=== PATIENT | female | born 1925 | race Caucasian/White ===

== ENCOUNTER 2016-09-15 08:09 | Outpatient (CLI) | payer MEDICARE, OTHER ==
[~2016-09-15] VITALS: Ht 154.9 cm; Wt 54.5 kg
--- NOTE | ~2016-09-15 | HEMODYNAMI ---
PATIENT:DRE MYLES MEDICAL RECORD: [id number] : [birth year] LOCATION:[facility] [address] [id number] ADMISSION DATE: 09/15/16 Generatedon:09/16/20169:07 Patient name: DRE MYLES Patient #: [id number] SSN: D OB: 1925 Date of study: 09/16/2016 Page: Of Hemodynamic Procedure Report Patient Data Patient Demographics Procedure consent was obtained First Name: DRE Gender: Female Last Name: SHAR : 1925 Patient #: [id number] Age: 89 year(s) Race: Unknown Additional ID: [id number] Contact details Address: [facility] [employer] State: [place] City: [facility] Zip code: [address] Past Medical History Allergies: No known allergies Admission Admission Data Admission Date: 09/15/2016 Admission Time: 8:09 Admit Source: Other Room #: D.2125 Lab Results Lab Result Date: 09/15/2016 Lab Result Time: 9:10 Biochemistry Name Units Result Min Max BUN mg/dl 16 --(---*)-- 7 18 Creatinine mg/dl 0.8 --(-*--)-- 0.6 1.3 CBC Name Units Result Min Max Hematocrit % 34.1 *-(----)-- 42 54 Hemoglobin g/dl 10.8 *-(----)-- 13.5 17.5 Procedure Procedure Types Cath Procedure PCI Procedure Coronary Stent Initial SVG-BMS/JOSE Initial Miscellaneous Procedures Moderate Sedation up to 15 minutes Procedure Description Procedure Date Procedure Date: 09/16/2016 Procedure Start Time: 8:45 Procedure End Time: 8:56 Procedure Staff Name Function Frantz Arce MD Performing Physician Dorothy Samainego RT Scrub Luis Reyna RN Nurse Ralf Sheldon RT Monitor Neetu Lopez RT Monitor Procedure Data Cath Procedure Entry Location Entry Primary Successful Side Size Upsize Upsize Entry Closure Succes sful Closure Location (Fr) 1 (Fr) 2 (Fr) Remarks Device Remarks Femoral Left 6 Fr Vascade artery Short Closure System Estimated blood loss: 10 ml Procedure Complications No complications Procedure Medications Medication Administration Route Dosage Oxygen NC 2 l/min Lidocaine 2% added to field 20 Heparin Flush Bag added to field 2 bags (1000units/500ml NS) 0.9% NaCl I.V. 100 ml/hr Versed I.V. 1 mg Fentanyl I.V. 50 mcg Heparin Bolus I.V. 4000 units Fentanyl I.V. 25 mcg Versed I.V. 0.5 mg Hemodynamics Rest HGB: 10.8 (g/dl) Heart Rate: 24 (bpm) Snapshots Pre Cath Intra NCS Post Cath Vital Signs Time Heart Resp SPO2 NIBP (mmHg) Rhythm Pain Sedation Rate (ipm) (%) Status Level (bpm) 7:54:30 96 15 96 176/92(136) NSR 0 (11) 10(A) , No pain 7:58:48 83 15 100 176/96(123) NSR 0 (11) 10(A) , No pain 8:03:10 80 16 100 177/87(119) NSR 0 (11) 10(A) , No pain 8:07:36 78 14 100 161/73(111) NSR 0 (11) 10(A) , No pain 8:11:59 79 15 99 160/68(112) NSR 0 (11) 10(A) , No pain 8:16:19 75 15 100 154/59(86) NSR 0 (11) 10(A) , No pain 8:20:39 69 14 100 146/64(118) NSR 0 (11) 10(A) , No pain 8:24:55 65 14 100 150/67(113) NSR 0 (11) 10(A) , No pain 8:29:13 68 13 100 152/63(110) NSR 0 (11) 10(A) , No pain 8:33:31 64 15 100 151/65(119) NSR 0 (11) 10(A) , No pain 8:37:49 61 15 100 149/66(109) NSR 0 (11) 10(A) , No pain 8:42:09 62 16 100 141/57(106) NSR 0 (11) 9(A) , No pain 8:46:25 60 15 100 145/60(113) NSR 0 (11) 9(A) , No pain 8:50:45 64 16 100 133/52(93) NSR 0 (11) 10(A) , No pain 8:55:45 62 14 100 Measuring NSR 0 (11) 10(A) , No pain 8:56:03 66 23 100 135/54(102) NSR 0 (11) 10(A) , No pain Medications Time Medication Route Dose Verified Delivered Reason Notes Effectiveness by by 7:56:26 Oxygen NC 2 Frantz Buffie used for l/min Claude Reyna RN procedure 7:56:32 Lidocaine 2% added 20ml Frantz Frantz for local to vial Claude Arce MD anesthetic field 7:56:39 Heparin Flush added 2 Frantz Frantz used for Bag to bags Claude Arce MD procedure (1000units/500ml field NS) 8:32:38 0.9% NaCl I.V. 100 Frantzdolores Keyie Per physician ml/hr Claude Reyna RN 8:40:30 Versed I.V. 1 mg Frantz Smith for sedation Claude Reyna RN 8:40:35 Fentanyl I.V. 50 Frantz Buffie for sedation mcg Claude Reyna RN 8:40:54 Fentanyl I.V. 25 Frantz Smith for sedation mcg Claude Reyna RN 8:44:04 Versed I.V. 0.5 Frantz Smith for sedation mg Claude Reyna RN 8:44:31 Heparin Bolus I.V. 4000 Frantz Smith for verifie d units Claude Reyna RN anticoagulation with dr arce Procedure Log Time Note 7:25:17 Informed consent obtained and on chart 7:26:24 Diagnostic Cath status Elective 7:26:26 Luis Reyna RN sent for patient. Start room use. 7:26:27 Time tracking: Regular hours 7:26:31 Plan of Care:Hemodynamics will remain stable., Cardiac rhythm will remain stable., Comfort level will be maintained., Respiratory function will remain adequate., Patient/ family verbilizes understanding of procedure., Procedure tolerated without complication., Recovers from procedure without complications.. 7:44:21 ACC Patient presents with Unstable Angina CCS Anginal Class 3--Marked limitation of physical activity, angina occurs with ordinary activity.. 7:44:23 ACCPatient has been prescribed/administered the following anti-anginal medication within the last 2 weeks: Beta Samir 7:46:53 Patient received from PCU to CCL 2 Alert and oriented. Tansferred to table in Supine position. 7:46:54 Warm blankets applied, and bi hugger turned on for patient comfort. 7:46:55 Correct patient and procedure confirmed by team. 7:46:55 ECG and BP/O2 sat monitors applied to patient. 7:52:27 Vital chart was started 7:52:34 Baseline sample Acquired. 7:52:39 Rhythm: sinus rhythm 7:52:41 Full Disclosure recording started 7:52:47 H&P Date Dictated: 09/16/2016 Within 30 days and on chart.. 7:52:49 Pre-procedure instructions explained to patient. 7:52:49 Pre-op teaching completed and patient verbalized understanding. 7:52:52 Family unavailable. 7:52:55 Patient NPO since Midnight. 7:53:00 Is the patient allergic to Iodine/contrast media? No. 7:53:02 Was the patient premedicated? No 7:53:03 Is patient on blood thinner?Yes 7:53:20 Patient diabetic? No. 7:53:24 Previous problem with sedation/anesthesia? No ? 7:53:27 Snore? No 7:53:28 Sleep apnea? No 7:53:29 Deviated septum? No 7:53:30 Opens mouth fully? Yes 7:53:30 Sticks out tongue? Yes 7:53:35 Airway obstruction? No ? 7:53:37 Dentures? No ? 7:53:41 Pre procedure: right dorsailis pedis pulse 1+ Palpable, but thready & weak; easily obliterated 7:53:44 Patient pain scale 0/10 ?. 7:53:51 IV patent on arrival in left forearm with 0.9% NaCl at [facility]. 7:53:57 Lab results completed and on chart. 7:54:10 Left groin area was prepped with chlora-prep and draped in sterile fashion 7:54:11 Alarms reviewed by R. N. 7:54:12 Sharps counted by scrub and verified by R.N. 7:55:33 Use device set Femoral PCI 7:55:35 Tegaderm 4 x 4 opened to sterile field. 7:55:36 Acist Manifold opened to sterile field. 7:55:38 Acist Syringe opened to sterile field. 7:55:38 Acist Hand Control opened to sterile field. 7:55:38 Bag Decanter opened to sterile field. 7:55:39 Medline Cath Pack opened to sterile field. 7:55:39 Terumo 6Fr Boyle Sheath opened to sterile field. 7:55:40 St Carlos A 260cm J .035 wire opened to sterile field. 7:55:40 Merit BasixCompak Inflation Kit opened to sterile field. 7:55:57 Banuelos Whisper J 300cm 0.014 guide wire opened to sterile field. 7:56:26 Oxygen 2 l/min NC was administered by Luis Reyna RN; used for procedure; 7:56:32 Lidocaine 2% 20ml vial added to field was administered by Frantz Arce MD; for local anesthetic; 7:56:39 Heparin Flush Bag (1000units/500ml NS) 2 bags added to field was administered by Frantz Arce MD; used for procedure; 7:56:50 Baseline sample Acquired. 8:32:38 0.9% NaCl 100 ml/hr I.V. was administered by Luis Reyna RN; Per physician; 8:37:11 Physician arrived 8:37:12 --------ALL STOP TIME OUT------ 8:37:13 Final Timeout: patient, procedure, and site verified with staff and physician. All members of the team are in agreement. 8:37:17 Left groin site verified by team. 8:37:24 Physical assessment completed. ASA score P 2 - A patient with mild systemic disease as per Frantz Arce MD. 8:37:29 Sedation plan: IV Moderate Sedation Versed, Fentanyl 8:38:59 Zero performed for pressure channel P1 8:40:30 Versed 1 mg I.V. was administered by Luis Reyna RN; for sedation; 8:40:35 Fentanyl 50 mcg I.V. was administered by Luis Reyna RN; for sedation; 8:40:54 Fentanyl 25 mcg I.V. was administered by Luis Reyna RN; for sedation; 8:44:04 Versed 0.5 mg I.V. was administered by Luis Reyna RN; for sedation; 8:44:31 Heparin Bolus 4000 units I.V. was administered by Luis Reyna RN; for anticoagulation; verified with dr arce 8:45:01 Procedure started. 8:45:07 Local anesthetic to left femerol artery with Lidocaine 2% by Frantz Arce MD.INITIAL ACCESS ONLY 8:45:22 A 6 Fr Short sheath was inserted into the Left Femoral artery 8:46:12 Medtronic Launcher 6Fr MB 1 guide catheter opened to sterile field. 8:46:28 6 Fr MB1 guide catheter was inserted over the wire 8:46:35 Whisp wire advanced. 8:47:28 Wire advanced across lesion. 8:50:37 Inflation Number: 1 A Medtronic Resolute 2.5 X 18 stent was prepped and advanced across the Dist RCA. The stent was deployed at 15 JANET for 0:10 (min:sec). 8:51:18 Stent catheter was removed intact over wire. 8:51:21 Wire removed. 8:51:21 Guide catheter removed. 8:53:13 Vascade 6/7 Fr Closure Device opened to sterile field. 8:53:39 Sheath removed intact; hemostasis achieved with Vascade Closure System to the Left Femoral artery. 8:53:44 Procedure ended.(Physican Out) 8:54:25 Insertion/operative site no bleeding no hematoma. 8:54:30 Post-op/insertion site Left Femoral artery dressed using a 4 x 4 and Tegaderm. 8:54:35 Post left femerol artery:stable 8:54:38 Post Procedure Pulses reassessed and unchanged 8:54:45 Post-procedure physical assessment completed. ASA score P 2 - A patient with mild systemic disease as per Frantz Arce MD. 8:54:50 Post procedure rhythm: unchanged. 8:54:53 Estimated blood loss: 10 ml 8:54:54 Post procedure instruction explained to patient.Patient verbalizes understanding. 8:54:56 Patient needs reinforcement of post procedure teaching. 8:55:08 Procedure type changed to Cath procedure, PCI procedure, Coronary Stent Initial, SVG-BMS/JOSE Initial, Miscellaneous Procedures, Moderate Sedation up to 15 minutes 8:55:09 Procedure and supply charges have been captured, reviewed, submitted and are correct. 8:55:43 Procedure Complication : No complications 8:55:47 Vital chart was stopped 8:55:56 See physician's report for complete and final results. 8:56:08 Report given to [facility]. 8:56:12 Patient transfered to [facility] with Bed. 8:56:15 Procedure ended. 8:56:15 Full Disclosure recording stopped 8:56:19 End room use (Document Last) 8:56:33 ACC-PCI Only Patient was given prescriptions, or instructed by Frantz Arce MD to start/continue the following medications upon discharge: Plavix Intervention Summary Intervention Notes Time ActionType Lesion and Equipment Action# Pressure Duration Attributes Used 8:50:37 Place stent Dist RCA Medtronic 1 15 00:10 Resolute 2.5 X 18 stent Device Usage Item Name Manufacture Quantity Catalog Hospital Part Current Minima l Lot# / Number Charge Number Stock Stock Serial# Code Tegaderm 4 1 [id number] 5 x 4 Acist Acist 1 41312 342094 523291 751479 5 Manifold Medical Systems Inc Acist Acist 1 91081 155335 532848 538294 20 Syringe Medical Systems Inc Acist Hand Acist 1 31936 021071 080655 394366 5 Control Medical Systems Inc Bag Microtek 1 2002S 305251 59053 009561 5 Klosetshop Inc. Medline Cardinal 1 [id number] 624219 68780 996752 5 Manifact Terumo 6Fr Terumo 1 [id number] 283959 442491 181399 [address] [facility] Carlos A 1 441550 936805 058764 477643 30 260cm J .035 wire Merit Merit 1 [id number] 697848 102804 608404 15 BasixCompak Medical Inflation Kit Banuelos Banuelos 1 [id number] 126818 125594 978780 5 Whisper J Vascular 300cm 0.014 guide wire Medtronic Medtronic 1 [id number] 378228 29831 210011 1 Launcher 6Fr MB 1 guide catheter Medtronic Medtronic 1 [id number] 276554 627613 5 [id number] Resolute 2.5 X 18 stent Vascade 6/7 Cardiva 1 [id number] 257971 429051 925112 5 Fr Closure Medical, Device Inc. Signature Audit [place] Stage Time Signature Unsigned Intra-Procedure 09/16/2016 Neetu Lopez 9:07:12 AM RT(R) Signatures Monitor : Ralf Sheldon RT Signature : Date : Time : Monitor : Neetu Lopez Signature : RT Date : Time : [place] [place] [address] [place] [address]
--- NOTE | ~2016-09-15 | HEMODYNAMI ---
PATIENT:DRE MYLES MEDICAL RECORD: [id number] : [birth year] LOCATION:[facility] ADMISSION DATE: 09/15/16 Generatedon:09/15/201611:02 Patient name: DRE MYLES Patient #: [id number] SSN: D OB: 1925 Date of study: 09/15/2016 Page: Of Hemodynamic Procedure Report Patient Data Patient Demographics Procedure consent was obtained First Name: DRE Gender: Female Last Name: SHAR : 1925 Patient #: [id number] Age: 89 year(s) Race: Unknown Additional ID: [id number] Contact details Address: [address] [place] [address] DRIVE State: [place] City: [facility] [place] Zip code: [address] Past Medical History Allergies: No known allergies Admission Admission Data Admission Date: 09/15/2016 Admission Time: 8:09 Admit Source: Other Lab Results Lab Result Date: 09/15/2016 Lab Result Time: 9:10 Biochemistry Name Units Result Min Max BUN mg/dl 16 --(---*)-- 7 18 Creatinine mg/dl 0.8 --(-*--)-- 0.6 1.3 CBC Name Units Result Min Max Hematocrit % 34.1 *-(----)-- 42 54 Hemoglobin g/dl 10.8 *-(----)-- 13.5 17.5 Procedure Procedure Types Cath Procedure Diagnostic Procedure C [facility] w/Coronaries PCI Procedure Coronary Stent Initial Miscellaneous Procedures Moderate Sedation up to 45 minutes Procedure Description Procedure Date Procedure Date: 09/15/2016 Procedure Start Time: 10:25 Procedure End Time: 11:01 Procedure Staff Name Function Frantz Arce MD Performing Physician Jt Knox RT Scrub Rachael Hunter RN Nurse Niki Easton RT Monitor Procedure Data Cath Procedure Fluoroscopy Diagnostic fluoroscopy Total fluoroscopy Time: time: 11.1 min 11.1 min Diagnostic fluoroscopy Total fluoroscopy dose: 730 dose: 730 mGy mGy Contrast Material Contrast Material Type Amount (ml) Isovue 300 164 Entry Location Entry Primary Successful Side Size Upsize Upsize Entry Closure Succes sful Closure Location (Fr) 1 (Fr) 2 (Fr) Remarks Device Remarks Femoral Right 5 Fr 6 Fr Exoseal artery Short Estimated blood loss: 10 ml Diagnostic catheters Device Type Used For End Catheter Placement Cordis 5Fr Pigtail LV Angiography Catheter (MP) Cordis 5Fr JL 4.0 Left Coronary Catheter (MP) Angiography Cordis 5Fr 3DRC Catheter Internal mammary (MP) arteriography Cordis 5Fr 3DRC Catheter Right Coronary (MP) Angiography Diagnostic Infinity 5Fr SVG Angiography AR 2 MOD catheter Diagnostic Infinity 5Fr SVG Angiography AR 2 MOD catheter Procedure Complications No complications Procedure Medications Medication Administration Route Dosage Oxygen NC 2 l/min Heparin Flush Bag added to field 2 bags (1000units/500ml NS) Lidocaine 2% added to field 20 Versed I.V. 0.5 mg Fentanyl I.V. 25 mcg Fentanyl I.V. 25 mcg Versed I.V. 0.5 mg Heparin Bolus I.V. 4000 units Integrilin (Bolus I.V. 5 ml 2mg/ml) Plavix P.O. 600 mg Hemodynamics Rest HGB: 10.8 (g/dl) Heart Rate: 78 (bpm) Snapshots Pre Cath Intra NCS Post Cath Vital Signs Time Heart Resp SPO2 etCO2 TU2sduh NIBP (mmHg) Rhythm Pain Sedation Rate (ipm) (%) (mmHg) (mmHg) Status Level (bpm) 10:13:06 83 15 98 0 0 163/76(121) NSR 0 (11) 10(A) , No pain 10:17:28 79 15 100 0 0 158/79(121) NSR 0 (11) 10(A) , No pain 10:21:50 72 15 100 0 0 152/69(111) NSR 0 (11) 10(A) , No pain 10:26:08 72 16 98 0 0 151/72(116) NSR 0 (11) 9(A) , No pain 10:30:28 74 16 96 0 0 135/69(113) NSR 0 (11) 9(A) , No pain 10:34:44 78 15 95 0 0 136/63(104) NSR 0 (11) 9(A) , No pain 10:39:02 73 15 97 0 0 132/54(94) NSR 0 (11) 9(A) , No pain 10:43:21 77 14 97 0 0 122/55(98) NSR 0 (11) 9(A) , No pain 10:47:30 75 14 97 0 0 139/66(103) NSR 0 (11) 9(A) , No pain 10:51:46 76 14 96 0 0 140/63(99) NSR 0 (11) 9(A) , No pain 10:56:02 74 16 97 0 0 144/68(119) NSR 0 (11) 9(A) , No pain 11:00:16 85 16 95 0 0 166/83(124) NSR 0 (11) 10(A) , No pain Medications Time Medication Route Dose Verified Delivered Reason Notes Effectiveness by by 10:13:47 Oxygen NC 2 Frantz Rachael Per physician l/min Claude Hunter RN 10:13:55 Heparin Flush added 2 Farntz Frantz used for Bag to bags Claude Arce MD procedure (1000units/500ml field NS) 10:14:02 Lidocaine 2% added 20ml Frantz Frantz used for to vial Claude rAce MD procedure field 10:21:42 Versed I.V. 0.5 Frantz Rachael for sedation mg Claude Hunter RN 10:21:49 Fentanyl I.V. 25 Frantz Rachael for sedation mcg Claude Hunter RN 10:23:45 Fentanyl I.V. 25 Frantz Rachael for sedation mcg Claude Hunter RN 10:25:05 Versed I.V. 0.5 Frantz Rachael for sedation mg Claude Hunter RN 10:35:43 Heparin Bolus I.V. 4000 Frantz Rachael for units Claude Hunter RN anticoagulation 10:39:36 Integrilin I.V. 5 ml Frantz Rachael for 5ml (Bolus 2mg/ml) Claude Hunter RN antiplatelet wasted therapy 11:00:51 Plavix P.O. 600 Frantz Rachael for mg Claude Hunter RN antiplatelet therapy Procedure Log Time Note 9:48:17 Informed consent obtained and on chart 9:48:59 Diagnostic Cath Status : Elective 9:49:03 Admit Source: Other 9:49:06 Rachael Hunter RN sent for patient. Start room use. 9:49:08 Time tracking: Regular hours 9:49:12 Plan of Care:Hemodynamics will remain stable., Cardiac rhythm will remain stable., Comfort level will be maintained., Respiratory function will remain adequate., Patient/ family verbilizes understanding of procedure., Procedure tolerated without complication., Recovers from procedure without complications.. 9::36 Lab Result : BUN 16 mg/dl :36 Lab Result : Creatinine 0.8 mg/dl :36 Lab Result : Hematocrit 34.1 % ::36 Lab Result : Hemoglobin 10.8 g/dl 10:06:41 Patient received from Pre/Post Procedure Room to CCL 1 Alert and oriented. Tansferred to table in Supine position. 10:06:42 Warm blankets applied, and bi hugger turned on for patient comfort. 10:06:43 Correct patient and procedure confirmed by team. 10:06:43 ECG and BP/O2 sat monitors applied to patient. 10:07:56 Full Disclosure recording started 10:11:51 Vital chart was started 10:13:47 Oxygen 2 l/min NC was administered by Rachael Hunter RN; Per physician; 10:13:50 H&P Date Dictated: 09/03/2016 Within 30 days and on chart., H&P Addendum completed by physician on day of procedure. (MUST COMPLETE FOR ALL OUTPATIENTS). 10:13:52 Pre-procedure instructions explained to patient. 10:13:53 Pre-op teaching completed and patient verbalized understanding. 10:13:54 Family in waiting room. 10:13:55 Heparin Flush Bag (1000units/500ml NS) 2 bags added to field was administered by Frantz Arce MD; used for procedure; 10:13:58 Baseline sample Acquired. 10:14:02 Lidocaine 2% 20ml vial added to field was administered by Frantz Arce MD; used for procedure; 10:14:02 Rhythm: sinus rhythm 10:14:08 Patient NPO since Midnight. 10:14:13 Patient allergic to No known allergies 10:14:15 Is the patient allergic to Iodine/contrast media? No. 10:14:17 Is patient on blood thinner?No 10:14:20 Patient diabetic? No. 10:14:24 Previous problem with sedation/anesthesia? No ? 10:14:26 Snore? No 10:14:27 Sleep apnea? No 10:14:28 Deviated septum? No 10:14:29 Opens mouth fully? Yes 10:14:30 Sticks out tongue? Yes 10:14:31 Airway obstruction? No ? 10:14:33 Dentures? No ? 10:14:37 Pre procedure: right dorsailis pedis pulse 2+ Normal; easily identifiable; not easily obliterated 10:14:39 Patient pain scale 0/10 ?. 10:14:47 IV patent on arrival in left hand with 0.9% NaCl at [facility]. 10:14:56 Lab results completed and on chart. 10:15:00 Right groin area was prepped with chlora-prep and draped in sterile fashion 10:15:01 Alarms reviewed by R. N. 10:15:01 Sharps counted by scrub and verified by R.N. 10:15:07 Use device set Femoral Dx 10:15:08 Acist Syringe opened to sterile field. 10:15:08 Bag Decanter opened to sterile field. 10:15:09 Medline Cath Pack opened to sterile field. 10:15:09 Terumo 5Fr Alva Sheath opened to sterile field. 10:15:10 St Carlos A 260cm J .035 wire opened to sterile field. 10:15:11 Acist Hand Control opened to sterile field. 10:15:12 Acist Manifold opened to sterile field. 10:15:12 Diagnostic Infinity 5Fr Multipack catheter opened to sterile field. 10:15:13 Tegaderm 4 x 4 opened to sterile field. 10:20:28 Final Timeout: patient, procedure, and site verified with staff and physician. All members of the team are in agreement. 10:20:31 Right groin site verified by team. 10:20:33 Physical assessment completed. ASA score P 2 - A patient with mild systemic disease as per Frantz Arce MD. 10:20:36 Sedation plan: IV Moderate Sedation Versed, Fentanyl 10:21:42 Versed 0.5 mg I.V. was administered by Rachael Hunter RN; for sedation; 10:21:49 Fentanyl 25 mcg I.V. was administered by Rachael Hunter RN; for sedation; 10:23:45 Fentanyl 25 mcg I.V. was administered by Rachael Hunter RN; for sedation; 10:25:05 Versed 0.5 mg I.V. was administered by Rachael Hunter RN; for sedation; 10::27 Procedure started. 10:25:30 Local anesthetic to right femoral artery with Lidocaine 2% by Frantz Arce MD.INITIAL ACCESS ONLY 10:25:54 A 5 Fr sheath was inserted into the Right Femoral artery 10::01 A Cordis 5Fr Pigtail Catheter (MP) was advanced over the wire and used for LV Angiography. 10:26:42 LV gram done using BARCENAS 10::59 Injector settings: Ml/sec: 10, Volume: 20, 10:27:06 Catheter removed. 10:27:13 A Cordis 5Fr JL 4.0 Catheter (MP) was advanced over the wire and used for Left Coronary Angiography. 10:29:08 Catheter removed. 10:29:59 Terumo 6Fr Alva Sheath opened to sterile field. 10:30:00 Met[employer] J 300cm 0.014 guide wire opened to sterile field. 10:30:01 LegCyte BasixCompak Inflation Kit opened to sterile field. 10:30:22 A Cordis 5Fr 3DRC Catheter (MP) was advanced over the wire and used for Internal mammary arteriography.to LAD 10:30:58 A Cordis 5Fr 3DRC Catheter (MP) was advanced over the wire and used for Right Coronary Angiography. 10:31:06 Catheter removed. 10:32:54 A Diagnostic Infinity 5Fr AR 2 MOD catheter was advanced over the wire and used for SVG Angiography.to RCA 10:35:13 A Diagnostic Infinity 5Fr AR 2 MOD catheter was advanced over the wire and used for SVG Angiography.to CIRC unable to find. No competitive flow in duck[place]. 10:35:16 Catheter removed. 10:35:43 Heparin Bolus 4000 units I.V. was administered by Rachael Hunter RN; for anticoagulation; 10:35:43 Cordis 6FR XBLAD 3.5 guide catheter opened to sterile field. 10:35:56 Sheath upsized to a 6 Fr Short. 10:36:05 6 Fr XBLAD 3.5 guide catheter was inserted over the wire 10:37:27 [employer] Holdingsisper wire advanced. 10:39:36 Integrilin (Bolus 2mg/ml) 5 ml I.V. was administered by Rachael Hunter RN; for antiplatelet therapy; 5ml wasted 10:39:43 Inflation number: 1 A Euphora 2.0 x 12 Balloon was prepped and advanced across the 1st Diag, then inflated to 17 JANET for 0:11 (min:sec). 10:40:03 Inflation number: 2 The Euphora 2.0 x 12 Balloon was reinflated across the 1st Diag, to 17 JANET for 0:08 (min:sec). 10:40:20 Inflation number: 3 The Euphora 2.0 x 12 Balloon was reinflated across the 1st Diag, to 17 JANET for 0:09 (min:sec). 10:40:38 Balloon removed over the wire. 10:44:20 Inflation Number: 4 A Medtronic Resolute 2.25 X 18 Stent was prepped and advanced across the 1st Diag. The stent was deployed at 13 JANET for 0:04 (min:sec). 10:44:30 Stent catheter was removed intact over wire. 10:46:46 The Medtronic Resolute 2.25 X 12 stent was advanced then removed because of failure to cross lesion 10:47:34 Banuelos Whisper J 300cm 0.014 guide wire opened to sterile field. 10:49:26 New Whisper to Circ wire advanced. 10:51:25 The Medtronic Resolute 2.5 X 8 stent was advanced then removed because of failure to cross lesion 10:53:14 Inflation Number: 5 A Medtronic Resolute 2.25 X 12 stent was prepped and advanced across the 1st Diag. The stent was deployed at 13 JANET for 0:07 (min:sec). 10:53:28 Stent catheter was removed intact over wire. 10:53:29 Wire removed. 10:53:29 Guide catheter removed. 10:54:41 Sheath removed intact; hemostasis achieved with Exoseal to the Right Femoral artery. 10:54:43 Procedure ended.(Physican Out) 10:55:06 Fluoroscopy time 11.10 minutes. 10:55:13 Flurop Dose total: 730 10:55:13 Fluoroscopy dose: 730 mGy 10:55:18 Contrast amount:Isovue 300 164ml. 10:55:20 Sharps counted by scrub and verified by R.N. 10:55:23 Insertion/operative site no bleeding no hematoma. 10:55:27 Post-op/insertion site Right Femoral artery dressed using a 4 x 4 and Tegaderm. 10:55:31 Post right femoral artery:stable, clean and dry 10:55:33 Post Procedure Pulses reassessed and unchanged 10:55:36 Post-procedure physical assessment completed. ASA score P 2 - A patient with mild systemic disease as per Frantz Arce MD. 10:55:38 Post procedure rhythm: unchanged. 10:55:41 Estimated blood loss: 10 ml 10:55:43 Post procedure instruction explained to patient.Patient verbalizes understanding. 10:55:45 Patient needs reinforcement of post procedure teaching. 10:56:06 Procedure type changed to Cath procedure, Diagnostic procedure, LHC, LHC w/Coronaries, PCI procedure, Coronary Stent Initial, Miscellaneous Procedures, Moderate Sedation up to 45 minutes 10:56:25 Procedure Complication : No complications 10:56:28 See physician's report for complete and final results. 10:56:59 Cordis 6Fr Exoseal opened to sterile field. 10:59:13 Procedure and supply charges have been captured, reviewed, submitted and are correct. 11:00:51 Plavix 600 mg P.O. was administered by Rachael Hunter RN; for antiplatelet therapy; 11:01:35 Vital chart was stopped 11:01:38 Report given to Pre/Post Procedure Room. 11:01:40 Patient transfered to Pre/Post Procedure Room with Stretcher. 11:01:42 Procedure ended. 11:01:42 Full Disclosure recording stopped 11:01:49 End room use (Document Last) Intervention Summary Intervention Notes Time ActionType Lesion and Equipment Action# Pressure Duration Attributes Used 10:39:43 Inflate 1st Diag Euphora 1 17 00:11 balloon 2.0 x 12 Balloon 10:40:03 Reinflate 1st Diag Euphora 2 17 00:08 balloon 2.0 x 12 Balloon 10:40:20 Reinflate 1st Diag Euphora 3 17 00:09 balloon 2.0 x 12 Balloon 10:44:20 Place stent 1st Diag Medtronic 4 13 00:04 Resolute 2.25 X 18 Stent 10:46:46 Discard Medtronic Stent Resolute 2.25 X 12 stent 10:51:25 Discard Medtronic Stent Resolute 2.5 X 8 stent 10:53:14 Place stent 1st Diag Medtronic 5 13 00:07 Resolute 2.25 X 12 stent Device Usage Item Name Manufacture Quantity Catalog Hospital Part Current Minimal Lot# / Number Charge Number Stock Stock Serial# Code Acist Acist 1 [id number] 204413 901258 345611 20 Syringe Medical Systems Inc Bag Microtek 1 2002S 862163 56443 040096 5 Ecofoot Inc. Medline Cardinal 1 [id number] 729403 52208 931347 5 Cath Pack Health Terumo 5Fr Terumo 1 [id number] 291181 708900 772945 [address] [facility] A [facility] Carlos A 1 504202 229068 077600 949353 30 260cm J .035 wire Acist Hand Acist 1 28646 124090 314216 306598 5 Control Medical Systems Inc Acist Acist 1 80793 807992 151104 316397 5 Enpocket Medical Systems Inc Diagnostic Cardinal 1 [id number] 193446 59612 414938 30 Infinity Health 5Fr Multipack catheter Tegaderm 4 3M 1 1626W 608785 187738 103263 5 x 4 Cordis 5Fr Cardinal 1 995637 5 Pigtail Health Catheter (MP) Cordis 5Fr Cardinal 1 420550 5 JL 4.0 Health Catheter (MP) Terumo 6Fr Terumo 1 HQU401 935486 704923 352991 40 Alva Sheath Banuelos Banuelos 2 [id number] 329399 466116 632403 5 Whisper J Vascular 300cm 0.014 guide wire Merit Merit 1 MU7865 561618 421255 298983 15 Dailybreak MediaOgden Regional Medical CenterBrain Tunnelgenix Technologies Medical Inflation Kit Cordis 5Fr Cardinal 1 993428 5 3DRC Health Catheter (MP) Diagnostic Cardinal 1 [id number] 302555 827003 367142 20 Infinity Health 5Fr AR 2 MOD catheter Cordis 6FR Cardinal 1 [id number] 013271 943045 168446 10 XBLAD 3.5 Health guide catheter Euphora 2.0 Medtronic 1 [id number] 344468 726111 833762 5 [id number] x 12 Balloon Medtronic Medtronic 1 [id number] 508571 685618 6 [id number] Resolute 2.25 X 18 Stent Medtronic Medtronic 1 [id number] 344390 748847 6 [id number] Resolute 2.25 X 12 stent Medtronic Medtronic 1 [id number] 427646 909492 6 [id number] Resolute 2.5 X 8 stent Cordis 6Fr Cardinal 1 EX600 615769 215908 913351 10 [facility] Health Signature Audit [place] Stage Time Signature Unsigned Intra-Procedure 09/15/2016 Niki 11:02:02 AM Counts RT(R) Signatures Monitor : Niki Signature : Counts RT Date : Time : [address] [address]
[~2016-09-15 08:09] MED LIST: BAYER CHEWABLE81 MG PO; BYSTOLIC5 MG PO; LASIX20 MG PO; MULTIPLE VITAMI1 TA1 PO; NORCO 10/325 TA1 TA1 PO; NORVASC5 MG PO; OYSCO 500+D TAB1 TAB PO; PAIN MED; VITAMIN B-121000 MCG PO
[2016-09-15] MEDS ORDERED: ICAPS AREDS1 TAB.SA PO (09:15)
[2016-09-15] MEDS ORDERED: BAYER CHEWABLE81 MG PO (09:15)
[2016-09-15] MEDS ORDERED: FUROSEMIDE20 MG PO (09:16)
[2016-09-15] MEDS ORDERED: TYLENOL W/CODEI1 TAB PO (09:16)
[2016-09-15 09:17] LABS: BASOPHILS 0.7 % (0.0-2.0); EOSINOPHILS 3.7 % (0-7); HEMATOCRIT 34.1 % (36.0-48.0); HEMOGLOBIN 10.8 g/dL (12-16); IMMATURE GRANULOCYTES 0.1 % (0-5); LYMPHOCYTES 29.3 % (15-50); MCH 30.1 pg (26.0-34.0); MCHC 31.7 g/dL (31.0-37.0); MONOCYTES 8.3 % (2-11); NEUTROPHILS 57.9 % (40-80); PLATELET COUNT 220 10x3/uL (130-400); RBC 3.59 10x6/uL (4.00-5.40); RDW 13.5 % (11.5-14.5); WBC 7.1 10x3/uL (4.8-10.8)
[2016-09-15] MEDS ORDERED: ESTAZOLAM2 MG PO (09:17)
[2016-09-15] MEDS ORDERED: BYSTOLIC5 MG PO (09:18)
[2016-09-15] MEDS ORDERED: CALCIUM 600+D T1 TA1 PO (09:18)
[2016-09-15 09:21] VITALS: BP 167/68; BMI 22.3
[2016-09-15 09:27] LABS: ANION GAP 11.8 mmol/L (8-16); CALCIUM 8.8 mg/dL (8.5-10.1); CARBON DIOXIDE 27.3 mmol/L (21.0-32.0); CREATININE - SERUM 0.8 mg/dL (0.6-1.3); POTASSIUM - SERUM 4.1 mmol/L (3.5-5.1)
--- NOTE | 2016-09-15 11:44 | NUR ---
1130-ON BEDPAN-VOID SMALL AMOUNT- RIGHT GROIN -NO CHANGES, SOFT TO TOUCH
--- NOTE | 2016-09-15 12:39 | NUR ---
1200-RIGHT GROIN CDI- NO HEMATOMA OR BLEEDING NOTED, SOFT TO TOUCH, DENIES NEEDS
--- NOTE | 2016-09-15 15:10 | NUR ---
1510-REPORT CALLED TO [facility]. TRANSPORT VIA WC, VSS, IV TO LEFT HAND PATENT AND CDI, RIGHT GROIN -CDI, NO HEMATOMA OR BLEEDING NOTED.
--- NOTE | 2016-09-15 15:40 | NUR ---
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 RIGHT GROIN SOFT WITH DRSG DRY AND INTACT PPP. IV TO LEFT FORE AM. DENIES ANY NEED. WILL MONITOR
[2016-09-15 16:10] VITALS: BP 164/83; Ht 154.9 cm; Wt 54.5 kg
--- NOTE | 2016-09-15 16:21 | NUR ---
ASSESSMENT COMPLETE AT THIS TIME NAD NOTED
--- NOTE | 2016-09-15 18:37 | NUR ---
RESTING QUIETLY. RIGHT GROIN SOFT WITH NO BLEEDING. UP FOR DIET.
[2016-09-15 20:00] VITALS: BP 136/57
[2016-09-16] VITALS (8 sets, daily range): BP systolic 139–169; BP diastolic 65–81
--- NOTE | 2016-09-16 07:40 | NUR ---
INTRODUCED MYSELF TO PT PRIMARY RN FOR TODAYS SHIFT. SHIFT ASSESSMENT COMPLETED. PTS LJOSE URIOSTEGUI DRSG SOILED WITH BLOOD, IV STILL PATENT, CLEANSED SITE AND APPLIED NEW CLEAN TEGADERM. CATH CALLED TO PRE-OP PT. PRE-OP COMPLETED AND PT READY TO GO FOR PROCEDURE. MAYCOL DRSG CDI FROM YESTERDAYS CATH NO S/S OF BLEEDING NOTED OR HEMATOMA. PT REC'D MORNING MEDICATONS WITH SIP OF WATER. WILL CPOC.
--- NOTE | 2016-09-16 09:37 | NUR ---
PT BACK FROM [facility]. VSS AND BEING RECORDED Q15MIN POLICY. INITIATED PTS IV NS @100ML/HR VIA L.FA PIV WITH DRSG CDI AND SWAB CAPS IN USE. PT IS TO LAY FLAT FOR [address] F[address] STOP IN PL[address] TO L.GROIN SITE CLEAN AND DRY NO S/S OF BLEEDING OR HEMATOMA NOTED. PT AWARE TO CALL FOR ANY ASSISTNACE AND REMAIN FLAT. CL IN REACH, TELEMETRY BACK IN PLACE. PERIPHERAL PULSES INTACT. WILL CPOC.
--- NOTE | 2016-09-16 11:00 | NUR ---
REMOVED AIR FROM FEM STOP TO L.GROIN. NO BLEEDING NOTED WILL CTM SITE. PERIPHERAL PULSES INTACT. VSS. PT LYING FLAT RESTING QUIETLY DENIES ANY FURTHER NEEDS AT THIS TIME. CL IN REACH, BED IN LOWEST, SIDE RAILS X2. WILL CPOC.
--- NOTE | 2016-09-16 12:21 | NUR ---
PT RESTING QUIETLY IN BED. C/O BEING THIRSTY. EXPLAINED SHE MUST LAY FLAT BUT I WILL ASSIST HER WITH WATER TO DRINK. PT VOICED THANKS. PERIPHERAL PULSES INTACT. FRANCISCO NOW HAS DRSG CDI, FEM STOP OFF AND NO S/S OF BLEEDING NOTED. VSS. PT CAN SIT UP AT 1300 AND D/C AND IS AWARE.
--- NOTE | 2016-09-16 13:00 | NUR ---
4 HOUR LAY COMPLETE. L.GROIN DRSG STILL CDI. NO S/S OF HEMATOMA OR BLEEDING NOTED. PT UP WITH ASSIST TO URINATE. VSS. PERIPHERAL PULSES INTACT. NO FURTHER NEEDS AT THIS TIME. WILL CPOC.
[2016-09-16] MEDS ORDERED: PLAVIX75 MG PO (13:19)
--- NOTE | 2016-09-16 14:27 | NUR ---
D/C PTS L.FA PIV WITH CATHETER TIP FULLY INTACT. PT READY TO LEAVE WITH DAUGHTER. DISCHARGE INSTRUCTIONS COMPLETED. PAPERS SIGNED.
--- NOTE | 2016-09-22 14:38 | DS ---
PATIENT:DRE MYLES :[birth year] MEDICAL RECORD: [id number] DISCHARGE SUMMARY ADMISSION DATE: 09/15/16 DISCHARGE DATE: 09/16/16 DATE OF DISCHARGE: 09/16/2016 DIAGNOSES: 1. Angina. 2. Coronary artery disease. 3. Percutaneous transluminal coronary angioplasty stent, LAD diagonal venetie, as well as RCA venetie through the patent vein graft. 4. Hypertension. 5. Hyperlipidemia. HOSPITAL COURSE: Mrs. Myles presents with anginal symptomatology, found to have 3-vessel coronary artery disease, underwent successful PTCA stent of the LAD diagonal and venetie RCA. She was discharged home with the addition of aspirin and Plavix to her medical regimen. She will follow up in 1 week for PTCA stent of the LAD through the SHELLEY graft. TRANSINT:[id number] Voice Confirmation ID: [id number] DOCUMENT ID: [id number] RUBEN RYDER MD at 1438 CC: [id number] DICTATION DATE: 09/16/16 0854 SAS CLINICAL PROGRAMMER: 09/17/16 0151 DEP CLI 09/16/16 [id number] [place] [address]
--- NOTE | 2016-09-22 14:38 | OP ---
PATIENT NAME: DRE MYLES MEDICAL RECORD: [id number] :[birth year] LOCATION:D.CAT ADMISSION DATE: SURGEON: RUBEN RYDER MD DATE OF OPERATION: 09/16/2016 PROCEDURES: 1. PTCA stent, RCA through patent vein graft. 2. Selective coronary and vein graft angiography. INDICATIONS: Angina and coronary artery disease. PROCEDURE IN DETAIL: After informed consent was obtained and after a detailed explanation of risks, benefits as well as alternative therapies, the patient elected to proceed with angiogram and angioplasty. The left femoral area was prepped and draped in normal sterile fashion. Left femoral artery was cannulated via modified Seldinger technique with placement of 6-Upper Sorbian sheath. All catheters exchanged through this sheath. FINDINGS: The right coronary has 75% stenosis after the patent vein graft. This was addressed with a 2.5 x 18 mm Resolute stent. Result was 0% residual stenosis. OVERALL IMPRESSION: Successful percutaneous transluminal coronary angioplasty stent of the right coronary artery through the patent vein graft going from 75% initial stenosis to 0% residual. TRANSINT:[id number] Voice Confirmation ID: [id number] DOCUMENT ID: [id number] RUBEN RYDER MD at 1438 CC: [id number] DICTATION DATE: 09/16/16 0855 SFDC DEVELOPER: 09/16/16 0905 DEP CLI 09/16/[address] [address]
--- NOTE | 2016-09-22 14:38 | OP ---
PATIENT NAME: DRE MYLES MEDICAL RECORD: [id number] :[birth year] LOCATION:D.CAT ADMISSION DATE: SURGEON: RUBEN RYDER MD DATE OF OPERATION: 09/15/2016 PROCEDURES: 1. PTCA stent LAD diagonal. 2. Left heart catheterization. 3. Selective coronary angiography. 4. Left ventriculogram. 5. Vein graft angiography. 6. SHELLEY angiography. INDICATION: Angina and coronary artery disease. PROCEDURE IN DETAIL: After informed consent was obtained and after a detailed explanation of the risks, benefits as well as alternative therapies, the patient elected to proceed with angiogram and angioplasty. The right femoral area was prepped and draped in normal sterile fashion. The right femoral artery was cannulated via modified Seldinger technique with placement of 6-Korean sheath. All catheters exchanged through this sheath. FINDINGS: The left ventriculogram was performed in standard 30-degree BARCENAS view, reveals basal hypokinesis. Overall ejection fraction 40%. SELECTIVE CORONARY ANGIOGRAPHY: 1. Left main is with no significant angiographic disease. 2. LAD is totally occluded in the proximal vessel. However, there is a very large diagonal system comes off prior to this. There is 90% stenosis times 2. 3. The left circumflex is not grafted, has moderate irregularities, but no flow-limiting stenosis. 4. The right coronary is totally occluded. 5. The vein graft to the right coronary is patent, but the distal right coronary has 80% stenosis after the vein graft. 6. SHELLEY to the LAD is patent; however, the LAD has a 90% stenosis after the SHELLEY. PTCA STENT OF THE LAD DIAGONAL: The stent used was a 2.5 x 12 and 2.5 x 18 both Resolute stents. Result was 0% residual stenosis. OVERALL IMPRESSION: Successful percutaneous transluminal coronary angioplasty stent of the LAD diagonal going from 90% initial stenosis times 2. PLAN: PTCA stent of the RCA through the vein graft and LAD through the SHELLEY graft in the future. TRANSINT:[id number] Voice Confirmation ID: [id number] DOCUMENT ID: [id number] OPERATIVE REPORT [id number] ANNETTE MYLESEEN RUBEN RYDER MD at 1438 CC: [id number] DICTATION DATE: 09/15/16 1059 BLOOD BANK LABORATORY PROFESSIONAL: 09/15/16 1122 DEP CLI 03/22/17 [facility] [address] [place] [address]
== END 2016-09-16 14:55 | disposition home or self-care (01) ==
LOC: D.CATH 08:09 → D.M2 08:09 → D.CATH 10:00 → D.M2 15:13 → D.CATH 09-16 14:55
PROVIDERS: Internal Medicine Interventional Cardiology
DX: I25.119 Atherosclerotic heart disease of native coronary artery with unspecified angina pectoris (principal); Z95.1 Presence of aortocoronary bypass graft; I10 Essential (primary) hypertension; E78.5 Hyperlipidemia, unspecified
CPT/HCPCS: 93459; C9600; C9604

== ENCOUNTER 2016-09-21 12:18 | Inpatient (IN) | payer MEDICARE, OTHER ==
[~2016-09-21] VITALS: Ht 154.9 cm; Wt 52.2 kg
--- NOTE | ~2016-09-21 | HEMODYNAMI ---
PATIENT:DRE MYLES MEDICAL RECORD: [id number] : [birth year] LOCATION:[facility] D.2128 ADMISSION DATE: 09/21/16 Generatedon:09/25/201610:38 Patient name: DRE MYLES Patient #: [id number] SSN: [id number] : 1925 Date of study: 09/25/2016 Page: Of Hemodynamic Procedure Report Patient Data Patient Demographics Procedure consent was obtained First Name: DRE Gender: Female Last Name: SHAR : 1925 Patient #: [id number] Age: 89 year(s) Race: Unknown SSN: [id number] Additional ID: [id number] Contact details Address: [facility] [address] State: [place] City: [facility] [place], [place] Zip code: [address] Past Medical History Allergies: No known allergies Admission Admission Data Admission Date: 09/21/2016 Admission Time: 17:59 Arrival Date: 09/25/2016 Arrival Time: 0:00 Admit Source: Other Room #: D.2128 Height (in.): 62 BSA: 1.54 (m2) Height (cm.): 157.48 BMI: 21.95 (kg/m2) Weight (lbs.): 120 Weight (kg.): 54.43 Lab Results Lab Result Date: 09/22/2016 Lab Result Time: 0:00 Biochemistry Name Units Result Min Max BUN mg/dl 18 --(---*)-- 7 18 Creatinine mg/dl 0.9 --(-*--)-- 0.6 1.3 CBC Name Units Result Min Max Hemoglobin g/dl 10 *-(----)-- 13.5 17.5 Procedure Procedure Types Cath Procedure Diagnostic Procedure Cardioversion Procedure Description Procedure Date Procedure Date: 09/25/2016 Procedure Start Time: 10:27 Procedure End Time: 10:36 Procedure Staff Name Function Frantz Arce MD Performing Physician Jarrett Cross RT eRnetta Reyna RN Nurse Neetu Lopez RT Monitor David Harrell MD Additional personnel Procedure Data Procedure Complications No complications Procedure Medications Medication Administration Route Dosage Oxygen NC 2 l/min Refer to Anesthesia Notes for Sedation Medications Hemodynamics Rest BSA: 1.54 (m2) HGB: 10 (g/dl) O2 Consumption: Estimated: 146.72 (ml/min) O2 Consumption indexed: Estimated:95.27 (ml/min/m) Heart Rate: 89 (bpm) Snapshots Pre Cath Intra NCS Post Cath Vital Signs Time Heart Resp SPO2 NIBP Rhythm Pain Sedation Rate (ipm) (%) (mmHg) Status Level (bpm) 10:25:53 74 24 95 92/51(74) A-Fib 0 (11) 10(A) , No pain 10:30:49 68 21 100 94/54(79) NSR 0 (11) 8(A) , No pain 10:33:25 64 23 100 108/43(86) NSR 0 (11) 9(A) , No pain 10:35:30 69 23 100 107/64(80) NSR 0 (11) 10(A) , No pain Medications Time Medication Route Dose Verified Delivered Reason Notes Effectiven ess by by 10:20:26 Refer to Frantz Hernandez Anesthesia Claude Harrell MD Notes for Sedation Medications 10:25:20 Oxygen NC 2 Frantz Smith used for l/min Claude Reyna RN procedure Procedure Log Time Note 10:14:47 Jarrett Cross RT(R) sent for patient. Start room use. 10:20:26 Refer to Anesthesia Notes for Sedation Medications was administered by David Harrell MD; ; 10:23:36 Patient Height : 157.48 cm 10:23:41 Patient Weight : 54.43 kg 10:23:41 Admit Source: Other 10:23:44 Arrival Date: 09/25/2016 12:00:00 AM 10:24:11 Diagnostic Cath Status : Elective 10:24:48 Time tracking: Regular hours 10:24:53 Plan of Care:Hemodynamics will remain stable., Cardiac rhythm will remain stable., Comfort level will be maintained., Respiratory function will remain adequate., Patient/ family verbilizes understanding of procedure., Procedure tolerated without complication., Recovers from procedure without complications.. 10:25:02 Patient received from Med II to [facility] 3 Alert and oriented. Tansferred to table in Supine position. 10:25:03 Warm blankets applied, and bi hugger turned on for patient comfort. 10:25:04 Correct patient and procedure confirmed by team. 10:25:06 Signed procedure consent form obtained from patient. 10:25:07 ECG and BP/O2 sat monitors applied to patient. 10:25:07 Vital chart was started 10:25:08 Baseline sample Acquired. 10:25:20 Oxygen 2 l/min NC was administered by Luis Reyna RN; used for procedure; 10:25:47 Full Disclosure recording started 10::06 H&P Date Dictated: 09/03/2016 Within 30 days and on chart.. 10:26:07 Pre-procedure instructions explained to patient. 10:26:12 Patient NPO since Midnight. 10:26:21 Patient allergic to No known allergies 10:26:27 Is patient on blood thinner?Yes 10:26:30 ACC The patient was administered the following blood thiners within the last 24 hours: ACCPlavix 10:26:33 Patient diabetic? No. 10:26:36 Snore? No 10:26:38 Sleep apnea? No 10:26:43 Dentures? No ? 10:26:57 IV patent on arrival in left forearm with 0.9% NaCl at [facility]. 10:27:11 Lab results completed and on chart. 10:27:14 Physician paged 10:27:15 Physician arrived 10:27:15 --------ALL STOP TIME OUT------ 10:27:16 Final Timeout: patient, procedure, and site verified with staff and physician. All members of the team are in agreement. 10:27:24 Sedation plan: TIVA Propofol 10:27:37 dr HARRELL present and monitoring patient for TIVA. 10:27:44 Procedure started. 10:27:46 Quick combo pads placed on patients chest and back. 10:27:48 Defibrillator synced and charged to 200 Joules. 10:27:50 Shock delivered. 10:27:56 Patient cardioverted to sinus rhythm . 10:29:21 Procedure ended.(Physican Out) 10:30:03 Post-procedure physical assessment completed. ASA score P 2 - A patient with mild systemic disease as per Frantz Arce MD. 10:30:06 Post procedure rhythm: sinus rhythm 10:30:10 Post procedure instruction explained to patient.Patient verbalizes understanding. 10:30:34 Quick Combo opened to sterile field. 10:30:39 Procedure and supply charges have been captured, reviewed, submitted and are correct. 10:30:55 Procedure Complication : No complications 10:35:57 Vital chart was stopped 10:35:58 See physician's report for complete and final results. 10:36:00 Report given to [facility]. 10:36:04 Patient transfered to [facility] with Bed. 10:36:06 Procedure ended. 10:36:06 Full Disclosure recording stopped 10:36:11 End room use (Document Last) Device Usage Item Manufacture Quantity Catalog Hospital Part Current Minimal Lot# / Name Number Charge Number Stock Stock Grzegorz nh# Code ThermoCeramix 1 [id number] Combo Signature Audit [employer] [place] Stage Time Signature Unsigned Intra-Procedure 09/25/2016 Neetu Lopez 10:38:11 AM RT(R) Signatures Monitor : Neetu Lopez Signature : RT Date : Time : [address] [address]
[~2016-09-21 12:18] MED LIST changes: +CALCIUM 600+D T1 TA1 PO; +ESTAZOLAM2 MG PO; +FUROSEMIDE20 MG PO; +ICAPS AREDS1 TAB.SA PO; +PLAVIX75 MG PO; +TYLENOL W/CODEI1 TAB PO
[2016-09-21 12:52] LABS: BASOPHILS 0.8 % (0.0-2.0); HEMOGLOBIN 10.4 g/dL (12-16); IMMATURE GRANULOCYTES 0.4 % (0-5); LYMPHOCYTES 25.9 % (15-50); MCHC 31.5 g/dL (31.0-37.0); MCV 95.1 fL (80.0-100.0); MEAN PLATELET VOLUME 9.3 fL (7.4-10.4); MONOCYTES 10.3 % (2-11); NEUTROPHILS 60.6 % (40-80); RBC 3.47 10x6/uL (4.00-5.40); RDW 13.4 % (11.5-14.5); WBC 8.4 10x3/uL (4.8-10.8)
[2016-09-21 12:57] LABS: PLATELET COUNT 265 10x3/uL (130-400)
[2016-09-21 13:11] LABS: ANION GAP 11.6 mmol/L (8-16); BILIRUBIN - TOTAL 0.54 mg/dL (0.2-1.3); CALCIUM 8.5 mg/dL (8.5-10.1); CARBON DIOXIDE 27.7 mmol/L (21.0-32.0); CREATININE - SERUM 0.8 mg/dL (0.6-1.3); POTASSIUM - SERUM 4.3 mmol/L (3.5-5.1); PROTEIN - SERUM 6.9 g/dL (6.4-8.2)
[2016-09-21 13:41] LABS: TROPONIN-I 0.206 ng/mL (0.000-0.060)
[2016-09-21 20:00] VITALS: BP 118/63
--- NOTE | 2016-09-21 20:15 | NUR ---
RECEIVED TO ROOM 2128 ALERT AND ORIENTED X3 89 Y/O FEMALE SEEN BY DR HENRY FOR PNEUMONIA, AFIB VIA STRETCHER FROM ER. ORIENTATION TO UNIT, ROOM, BED, BR, PHONE, C/L GIVEN WITH UNDERSTANDING VERBALIZED. BOX ALARM PLACED, IS ON AND WORKING FOR SAFETY, RESP EVEN AND UNLAB WITH O2 @ 2L NC IN PLACE, USES BED ROCHA WITH ASSIST, OLINDA WELL. VOICES NO C/O PAIN AT THIS TIME. WILL PLACE TELEMETRY PER ORDERS. NPO. CONTINUE TO MONITOR.
[2016-09-21 23:40] VITALS: BP 118/63; BMI 21.7
[2016-09-22 00:11] VITALS: BP 106/64
--- NOTE | 2016-09-22 03:01 | NUR ---
EYES CLOSED, RESP UNLAB WITH NO S/S OF ACUTE DISTRESS NOTED. C/L IN REACH, CONTINUE TO MONITOR.
[2016-09-22 04:00] VITALS: BP 113/46
[2016-09-22 05:16] LABS: BASOPHILS 0.5 % (0.0-2.0); EOSINOPHILS 1.1 % (0-7); HEMATOCRIT 32.1 % (36.0-48.0); IMMATURE GRANULOCYTES 0.4 % (0-5); LYMPHOCYTES 14.2 % (15-50); MCH 29.8 pg (26.0-34.0); MCHC 31.2 g/dL (31.0-37.0); MCV 95.5 fL (80.0-100.0); MEAN PLATELET VOLUME 9.7 fL (7.4-10.4); NEUTROPHILS 75.8 % (40-80); PLATELET COUNT 314 10x3/uL (130-400); RBC 3.36 10x6/uL (4.00-5.40); RDW 13.2 % (11.5-14.5); WBC 10.2 10x3/uL (4.8-10.8)
[2016-09-22 06:07] LABS: ALBUMIN 3.1 g/dL (3.4-5.0); ANION GAP 16.2 mmol/L (8-16); BILIRUBIN - TOTAL 0.63 mg/dL (0.2-1.3); CALCIUM 8.5 mg/dL (8.5-10.1); CARBON DIOXIDE 25.7 mmol/L (21.0-32.0); CREATININE - SERUM 0.9 mg/dL (0.6-1.3); POTASSIUM - SERUM 3.9 mmol/L (3.5-5.1); PROTEIN - SERUM 6.4 g/dL (6.4-8.2)
[2016-09-22 06:13] LABS: TROPONIN-I 0.122 ng/mL (0.000-0.060)
[2016-09-22 07:56] VITALS: BP 127/54
--- NOTE | 2016-09-22 09:00 | NUR ---
RETURN TO ROOM VIA BED FROM EXECUTIVE MARKETING ASSISTANT. SEDATED. AROUSES TO STIMULI. DAUGHTER AT BEDSIDE. RT GROIN DRESSING CLEAN DRY INTACT. FREE FROM BLEEDING. NO HEMATOMA. PULSES +1 BILATERALLY. CONTROLLED AFIB 74bpm ON TELEMETRY. BP-109/49, O2-98% 2L NC, R-16. CONTINUE PLAN OF CARE. BED LOCKED AND LOW. CALL LIGHT IN REACH. TWO SIDERAILS UP. SCDs ON.
[2016-09-22 12:03] VITALS: BP 118/48
[2016-09-22 13:38] VITALS: Ht 154.9 cm; Wt 52.2 kg
[2016-09-22 15:59] VITALS: BP 113/74
[2016-09-22 22:26] VITALS: BP 134/58
[2016-09-23 01:25] VITALS: BP 119/65
[2016-09-23 05:45] VITALS: BP 108/46
[2016-09-23 08:00] VITALS: BP 118/87
[2016-09-23 12:00] VITALS: BP 97/52
--- NOTE | 2016-09-23 14:04 | NUR ---
Patient Name: DRE MYLES Admission Status: ER Accout number: [id number] Admission Date: 09-21-2016 : 1925 Admission Diagnosis: Attending: YANIRA Current LOS: 2 Anticipated DC Date: 09-24-2016 Planned Disposition: Inpatient Rehab Primary Insurance: MEDICARE A & B PLANNED EXTERNAL PROVIDER: [facility] IN[facility] Discharge Planning Comments: * Is the patient Alert and Oriented? Yes 0 * How many steps to enter\exit or inside your home? 3 OUTSIDE 0 * PCP DR. HENRY 0 * Pharmacy [facility] 0 * Preadmission Environment Home with Family 0 * ADLs Independent 0 * Equipment Shower Chair Walker 0 * Other Equipment NO MEDICAL EQUIPMENT PROVIDER PREFERENCE 0 * List name and contact numbers for known caregivers / representatives who currently or will assist patient after discharge: CHANDRAKANT MYLES, SPOUSE, VINOD MANJARREZ, SISTER, 0 * Community resources currently utilized Other 0 * Please name any agencies selected above. PRIVATE PAY SAILING MASTER, ONCE EVERY TWO WEEKS. 0 * Additional services required to return to the preadmission environment? Yes * Can the patient safely return to the preadmission environment? Yes 0 * Has this patient been hospitalized within the prior 30 days at any hospital? No 0 CM RECEIVED ORDER FOR RETIREMENT VS INPATIENT REHAB PLACEMENT. CM MET WITH PT IN ROOM TO DISCUSS DISCHARGE PLANNING AND NEEDS. PT REPORTS LIVING AT HOME INDEPENDENTLY SPOUSE AND ADULT DAUGHTER. PT HAS A WALKER AND SHOWER CHAIR WITH NO MEDICAL EQUIPMENT PROVIDER PREFERENCE. PT HAS A SAILING MASTER THAT COMES IN ONCE EVERY TWO WEEKS. PT HAS NO OUTSIDE SERVICES ASSISTING IN THE HOME. CM DISCUSSED ORDER, AVAILABILITY OF HOME HEALTH, REHAB SERVICES AND MEDICAL EQUIPMENT. PT REPORTED HER SPOUSE WENT TO [place] AND THEY DID A GOOD JOB WITH REHAB FOR HIM BUT SHE DOES NOT WANT TO CONSIDER RETIREMENT REHAB. PT WOULD CONSIDER INPATIENT REHAB AT [facility] HER CANNNOT SEE WELL AND CANNOT DRIVE BACK AND FORTH TO GET PT TO REHAB. PT MAY ALSO CONSIDER HOME HEALTH. PT REPORTS HER DAUGHTER WILL PICK HER UP FOR DISCHARGE HOME. CM EXPLAINED AND DISCUSSED AT LENGTH THAT THE DOCTOR FEELS PT WILL NEED REHAB PRIOR TO RETURNING HOME AND IF PT WOULD LIKE TO BE CONSIDERED AT [facility], BED AVAILABITY MAY BE AN ISSUE AND WE NEED TO SEND REFERRAL SINCE THE DOCTOR IS ANTICIPATING DISCHARGE TOMORROW. PT REFUSED AND REPORTS PLAN TO GO HOME AND SHE WOULD CONSIDER REHAB AT THE HOSPITAL. CM LEFT CHOICE FORMS FOR PT'S INFORMATION REGARDING AVAILABILITY OF RETIREMENT FACILITY REHAB AND HOME HEALTH SERVICES. CM LEFT PT WITH CM CONTACT INFORMATION. PT WILL NOT CONSIDER RETIREMENT REHAB; PT WANTS TO GO HOME AND WILL CONSIDER HOME HEALTH OR INPATIENT REHAB ONLY. CM TO FOLLOW AND ASSIST NEEDED. Bankruptcy Processor: Ramón Patel
--- NOTE | 2016-09-23 14:36 | NUR ---
ALERT AND ORIENTED X4. SITTING UP IN BED. FAMILY AT BEDSIDE. VOMITED LUNCH UP. COMPLAINS OF BODY WEAKNESS. UNCONTROLLED A-FIB 118bpm WITH PVCs ON TELEMETRY. DENIES SOB. ADMINISTER 2nd DOSE OF RHYTHMOL PER ORDER. CONTINUE PLAN OF CARE. BED LOCKED AND LOW. CALL LIGHT IN REACH. TWO SIDERAILS UP.
--- NOTE | 2016-09-23 16:33 | NUR ---
Rehab Prescreening Consult recieved and the chart has been reviewed. The PT notes state she is confused and lethargic during their eval. Rehab will follow her progress with them to determine if she is able to participate in the required therapy. Mahi Donaldson RN Clinical Liaison, Rehab
--- NOTE | 2016-09-23 16:41 | NUR ---
ALERT AND ORIENTED X4. RESTING IN BED. REFUSED PHYSICAL THERAPY. WHEN ASKED WHY, PATIENT REPLIES, "I DON'T KNOW. I JUST DIDN'T FEEL LIKE IT I GUESS. I JUST WANT TO GO HOME AND BE NORMAL." POOR INTAKE. ENCOURAGE DRINKING FLUIDS. DENIES SOB. COMPLAINS OF BODY ACHING WITH MOVEMENT. ENCOURAGE ALLOWING PHYSICAL THERAPY TOMORROW. CONTROLLED A-FIB WITH PVCs 93bpm ON TELEMETRY. CONTINUE PLAN OF CARE AND SAFETY PRECAUTIONS.
--- NOTE | 2016-09-23 19:00 | NUR ---
REPORT RECIEVED, INITIAL ASSESSMENT COMPLETE, PLEASE SEE FLOW SHEETS FOR DETAILS. PT INN BED RESTING. A&O X4. LUNGS CLEAR AND DIMINISHED IN LOWER LOBES BILATERALLY. AT BEDSIDE. PT DENIES PAIN/NEEDS ATT. PPP. BED LOW AND LOCKED. CALL LIGHT IN REACH. WILL CONTINUE POC.
[2016-09-23 20:24] VITALS: BP 119/61
[2016-09-24 00:14] VITALS: BP 108/54
--- NOTE | 2016-09-24 01:52 | NUR ---
PT SLEEPING, NO S&S OF ACUTE DISTRESS NOTED. BED LOW AND LOCKED, CALL LIGHT IN REACH. HR REGULAR AND CONTROLLED AFIB ON MONITOR. WILL CONTINUE TO MONITOR.
[2016-09-24 04:44] VITALS: BP 114/45
[2016-09-24 05:58] LABS: BASOPHILS 0.3 % (0.0-2.0); EOSINOPHILS 0.8 % (0-7); HEMATOCRIT 32.1 % (36.0-48.0); IMMATURE GRANULOCYTES 0.4 % (0-5); LYMPHOCYTES 13.2 % (15-50); MCH 29.8 pg (26.0-34.0); MCHC 31.2 g/dL (31.0-37.0); MCV 95.5 fL (80.0-100.0); MEAN PLATELET VOLUME 9.7 fL (7.4-10.4); MONOCYTES 11.8 % (2-11); NEUTROPHILS 73.5 % (40-80); PLATELET COUNT 342 10x3/uL (130-400); RBC 3.36 10x6/uL (4.00-5.40); RDW 13.1 % (11.5-14.5); WBC 11.1 10x3/uL (4.8-10.8)
[2016-09-24 06:21] LABS: ALBUMIN 2.9 g/dL (3.4-5.0); ANION GAP 10.1 mmol/L (8-16); BILIRUBIN - TOTAL 0.6 mg/dL (0.2-1.3); CALCIUM 8.9 mg/dL (8.5-10.1); CARBON DIOXIDE 30.2 mmol/L (21.0-32.0); CREATININE - SERUM 0.8 mg/dL (0.6-1.3); POTASSIUM - SERUM 3.3 mmol/L (3.5-5.1); PROTEIN - SERUM 7.2 g/dL (6.4-8.2)
--- NOTE | 2016-09-24 07:47 | NUR ---
UD GIVEN Y RT. OUTSIDE FOOD SERVER AT ASSISTING WITH NEEDS. CALL LIGHT IN REACH. WILL CONT. PLAN OF CARE.
--- NOTE | 2016-09-24 07:52 | NUR ---
ASSESSMENT COMPLETED. TELEMERTY SHOWS CAF . SL TO LEFT FA.BRUISING TO GROINS. DENIES ANY NEEDS. CALL LIGHT IN REACH WITH SR UP. WILL MONITOR
[2016-09-24 08:26] VITALS: BP 98/47
--- NOTE | 2016-09-24 10:57 | NUR ---
This patient meets criteria for acute inpatient rehab and will be accepted today if the physician agrees. Mahi Donaldson RN CL
--- NOTE | 2016-09-24 11:54 | NUR ---
Patient Name: DRE MYLES Encounter No: [id number] : 1925 Primary Insurance: MEDICARE A & B Anticipated DC Date: 09-24-2016 Planned Disposition: Inpatient Rehab External Planned Provider: [facility] INPATIENT REH[facility] DCP follow-up note: CM SPOKE TO [facility]PATIENT REH[facility], THEY CANB ACCEPT PT TODAY FOR REHAB IS STABLE FOR DISCHARGE FROM HOSPITAL. PT NOTIFIED, IN AGREEMENT WITH DISCHARGE TO INPATIENT REHAB. CM CALLED PT'S SPOUSE, CHANDRAKANT MYLES, , NOTIFIED OF ACCEPTANCE BY [facility] INPATIENT RE[facility], MR. MYLES IN AGREEMENT WITH DISCHARGE TODAY. CM NOTIFIED DR. HENRY VIA HIS NURSE, FELISHA, AT CLINIC PHONE. CM ADVISED PLIER WORKER NURSE OF PLANNED DISCHARGE TODAY TO INPATIENT REHAB IF OK WITH CARDIOLOGY. PT NOTIFIED. IMPORTANT MESSAGE FROM MEDICARE PROVIDED AND EXPLAINED. CM WAITING HOSPITAL DISCHARGE. [facility] INPATIENT REHAB TO CONTACT MED 2 NURSE WITH ROOM NUMBER WHEN READY TO ACCEPT PT AND NURSE REPORT. Ramón Patel, CASE MANAGEMENT
[2016-09-24 11:56] VITALS: BP 110/65
--- NOTE | 2016-09-24 12:46 | NUR ---
Nutrition follow-up: Diet: Low sodium PO intake ~25% average of meals Labs reviewed Pt a little lethargic per nursing today Wt: 114# Will continue to provide food choices and honor food preferences. RDN will order Ensure BID. Following.
[2016-09-24 15:21] VITALS: BP 110/54
--- NOTE | 2016-09-24 19:03 | NUR ---
LYING QUIETLY. STILL IN CAF. DENIES AANY NEEDS. CALL LIGHT IN REACH WITH SR UP
[2016-09-24 20:00] VITALS: BP 129/56
[2016-09-25] VITALS: BP 107/59
[2016-09-25 04:00] VITALS: BP 111/58
[2016-09-25 05:42] LABS: BASOPHILS 0.2 % (0.0-2.0); EOSINOPHILS 1.1 % (0-7); HEMOGLOBIN 9.6 g/dL (12-16); IMMATURE GRANULOCYTES 0.3 % (0-5); LYMPHOCYTES 13.5 % (15-50); MCH 29.6 pg (26.0-34.0); MCV 95.7 fL (80.0-100.0); MEAN PLATELET VOLUME 9.1 fL (7.4-10.4); MONOCYTES 8.1 % (2-11); NEUTROPHILS 76.8 % (40-80); PLATELET COUNT 351 10x3/uL (130-400); RBC 3.24 10x6/uL (4.00-5.40); RDW 12.9 % (11.5-14.5); WBC 10.3 10x3/uL (4.8-10.8)
[2016-09-25 05:54] LABS: ANION GAP 11.9 mmol/L (8-16); CALCIUM 8.8 mg/dL (8.5-10.1); CREATININE - SERUM 0.9 mg/dL (0.6-1.3)
[2016-09-25 05:55] LABS: POTASSIUM - SERUM 3.9 mmol/L (3.5-5.1)
--- NOTE | 2016-09-25 07:19 | NUR ---
PT SITTING UP IN BED SLEEPING NO S/S DISTRESS NOTED WILL CONT TO MONITOR.
--- NOTE | 2016-09-25 10:53 | NUR ---
PT BACK FROM CARDIOVERSION. PT ALERT AND ORIENTED A LITTLE LETHARGIC FROM SEDATION. PT BACK ON TELE IN SINUS RHYTHYM. 02 SAT 94% ON 2L HR 66. BP 122/53 IS BP. WILL CONT TO MONITOR.
--- NOTE | 2016-09-25 11:37 | NUR ---
PT VS STILL WNL. PT SLEEPING SOUNDLY NO S/S DISTRESS NOTED. STILL SR ON TELE 60S. WILL CONT TO MONITOR.
[2016-09-25 12:00] VITALS: BP 122/53
--- NOTE | 2016-09-25 12:09 | NUR ---
PT STILL RESTING QUIETLY SR 60S ON TELE. VS STILL WNL
--- NOTE | 2016-09-25 14:51 | NUR ---
PT AWAKE AND ALERT AND EATING HER LUNCH AT BEDSIDE. DENIES NEEDS. VS ARE STABLE
[2016-09-25] MEDS ORDERED: CARDIZEM SR60 MG PO (16:04)
[2016-09-25] MEDS ORDERED: RYTHMOL PO (16:05)
--- NOTE | 2016-09-25 16:09 | NUR ---
Patient Name: DRE MYLES Encounter No: [id number] : 1925 Primary Insurance: MEDICARE A & B Anticipated DC Date: 09-25-2016 Planned Disposition: Inpatient Rehab External Planned Provider: [facility] INPATIENT REH[facility] DCP follow-up note: CM SPOKE TO [facility]PATIENT [facility], THEY PLAN TO ACCEPT PT TODAY FOR REHAB IF STABLE. PT AND SPOUSE NOTIFIED, BOTH IN AGREEMENT WITH DISCHARGE TO INPATIENT REHAB. BEDSIDE NURSE AND GAS JOCKEY NURSE NOTIFIED. JONATAN FRANKS SPOKE TO DR. RYDER AND DR. GONSALVES, BOTH IN AGREEMENT WITH PT'S DISCHARGE TO REHAB TODAY. PT TO DISCHARGE TO [facility] INPATIENT REHAB, ROOM NUMBER 1111-A. NURSE REPORT TO BE CALLED TO INPATIENT REHAB AT 1160. Ramón Patel, CASE MANAGEMENT
--- NOTE | 2016-09-25 17:01 | NUR ---
DC PIV WITH CATHETER TIP INTACT. PT GOING DOWNSTAIRS ON TELE. ALERTED TAO ROLLING MILL OPERATOR THAT PT IS MOVING TO ROOM 1111A. WENT OVER DC PAPERWORK WITH PT PT VERBALIZES UNDERSTANDING. BOX CAR LOADER TAKING VIA WHEELCHAIR TO REHAB.
--- NOTE | 2016-09-25 17:51 | NUR ---
PT DOWN TO REHAB VIA RESTAURANT CULINARY MANAGER
--- NOTE | 2016-10-09 10:19 | OP ---
PATIENT NAME: DRE MYLES MEDICAL RECORD: [id number] :[birth year] LOCATION:D.M2 D.2128 ADMISSION DATE:09/21/16 SURGEON: RUBEN RYDER MD DATE OF OPERATION: 09/25/2016 PROCEDURE: DC cardioversion. INDICATION: Atrial fibrillation. PROCEDURE IN DETAIL: IV conscious sedation was performed per anesthesia. Continuous heart rate, O2 saturation, blood pressure monitoring all undertaken, all of which remains stable. She received 1 shock at 200 joules restoring sinus rhythm. OVERALL IMPRESSION: Successful DC cardioversion from atrial fibrillation to a sinus rhythm. TRANSINT:[id number] Voice Confirmation ID: [id number] DOCUMENT ID: [id number] RUBEN RYDER MD at 1019 CC: [id number] DICTATION DATE: 09/25/16 1029 [facility] DIRECTOR: 09/25/16 1230 DIS IN 09/25/16 [facility] [address] [place] [address]
== END 2016-09-25 17:52 | DRG 246 ==
LOC: D.ER 12:18 → D.M2 17:59
PROVIDERS: Emergency Medicine; ADMIT Family Medicine
PROC: 027034Z Dilation of Coronary Artery, One Artery with Drug-eluting Intraluminal Device, Percutaneous Approach (ICD-10-PCS; principal; 2016-09-22)
PROC: 4A023N7 Measurement of Cardiac Sampling and Pressure, Left Heart, Percutaneous Approach (ICD-10-PCS; 2016-09-22)
PROC: B2121ZZ Fluoroscopy of Single Coronary Artery Bypass Graft using Low Osmolar Contrast (ICD-10-PCS; 2016-09-22)
PROC: B2111ZZ Fluoroscopy of Multiple Coronary Arteries using Low Osmolar Contrast (ICD-10-PCS; 2016-09-22)
DX: I25.119 Atherosclerotic heart disease of native coronary artery with unspecified angina pectoris (principal); J18.9 Pneumonia, unspecified organism; N39.0 Urinary tract infection, site not specified; I10 Essential (primary) hypertension; I25.2 Old myocardial infarction; I48.0 Paroxysmal atrial fibrillation; M48.00 Spinal stenosis, site unspecified

== ENCOUNTER 2016-09-25 17:01 | Inpatient (IN) | payer MEDICARE, OTHER ==
[~2016-09-25] VITALS: Ht 154.9 cm; Wt 51.7 kg
[~2016-09-25 17:01] MED LIST changes: +CARDIZEM SR60 MG PO; +RYTHMOL PO
[2016-09-25 17:34] VITALS: BP 126/48
--- NOTE | 2016-09-25 18:26 | NUR ---
PT WAS ADMITTED TO REHAB UNIT VIA WHEELCHAIR AND HOSPITAL STAFF FROM MED II UNIT. PT'S WAS WITH HER. SHE IS STABLE AND VITAL SIGNS; TEMP. 98.7, PULSE 73, RESP. 17, B/P 126/48, 02SAT 95% ON 2L/MIN 02 PER NC. SHE IS BEING ADMITTED WITH DX; PNEUMONIA AND A-FIB. SHE HAS TELEMETRY ON AND IS IN SINUS RHYTHUM. SHE IS ALERT AND ORIENTED X 3. CALL LIGHT IS IN REACH. NO SIGNS OF ANY DISCOMFORT OR DISTRESS.
[2016-09-25 19:38] VITALS: BP 126/48
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
--- NOTE | 2016-09-25 23:03 | NUR ---
PT. IN BED WITH HOB SLIGHTLY ELEVATED FOR COMFORT. EYES CLOSED AND RESP. EVEN. CALL LIGHT WITHIN REACH.
--- NOTE | 2016-09-26 00:10 | NUR ---
PT'S ROOMMATE CALLED ME TO ROOM AND PT. EXPRESSED HER NEED TO CALL HER DAUGHTER BECAUSE SHE WANTS TO GO HOME. EXPLAINED TO PT. WHAT TIME IT WAS AND THAT I WAS SURE HER DAUGHTER WAS ASLEEP AND COULD PT. NOT WAIT UNTIL THE MORNING TO CALL DAUGHTER. PT. SAID SHE WOULD WAIT. CALL LIGHT WITHIN REACH.
--- NOTE | 2016-09-26 01:55 | NUR ---
PT'S ROOMMATE AGAIN CALLED AND STATED THAT PT. NEEDED ASSISTANCE. WHEN I CAME INTO ROOM PT. WAS AGITATED AND WANTED ME TO CALL HER DAUGHTER NOW AND TO COME GET HER. GOT PHONE NUMBER FROM PT. AND PT'S DAUGHTER'S NAME AND CALLED DAUGHTER. EXPLAINED THE SITUATION TO DAUGHTER AND SHE SAID SHE WOULD BE THERE SOON SHE COULD.
--- NOTE | 2016-09-26 02:15 | NUR ---
PT'S DAUGHTER AND PT'S SPOUSE HERE. EXPLAINED IN DETAIL HOW PT. HAD ACTED. DAUGHTER REPORTS THAT HER MOTHER IS VERY HARD HEADED AND ALWAYS WANTS HER WAY. DAUGHTER STATED THAT THE SPOUSE IS GOING TO STAY THE REST OF THE NIGHT WITH THE PT. ARRANGEMENTS MADE FOR RECLINER FOR SPOUSE TO SLEEP IN. DAUGHTER SAID SHE WOULD TALK TO PT. BUT MORE THAN LIKELY THE FAMILY WILL HAVE TO PLACE PT. IN A CARE HOME/REHAB FACILITY OTHER THAN THIS ONE. INFORMED DAUGHTER THAT A NOTE WILL BE LEFT FOR DR. IBARRA SO HE WILL KNOW THE SITUATION.
--- NOTE | 2016-09-26 03:04 | NUR ---
PT. IN BED WITH HOB UP FOR COMFORT. EYES CLOSED AND RESP. EVEN. SPOUSE ASLEEP IN RECLINER NEXT TO HER. CALL LIGHT WITHIN REACH.
[2016-09-26 07:00] VITALS: BP 111/55
--- NOTE | 2016-09-26 07:40 | NUR ---
PT IS RESTING IN BED WITH EYES CLOSED. AWAKENS EASILY TO VERBAL STIMULI. PT REFUSING TO COOPERATE FOR ANY TASKS. SHE STATES: " ALL I WANT TO DO IS LAY DOWN AND SLEEP." SPOUSE IS AT BEDSIDE. INCISION TO RIGHT GROIN IS INTACT. NO EDEMA OR BLEEDING NOTED. O2 IS ON @ 2LPM PER NC. SR'S ARE UP X 2 IN BED. CALL LIGHT AND BEDSIDE TABLE ARE WITHIN EASY REACH.
--- NOTE | 2016-09-26 10:03 | NUR ---
PT IS RESTING IN BED AWAITING THERAPY EVALS. EYES CLOSED. RESPS ARE EVEN AND UNLABORED.
[2016-09-26 12:27] VITALS: Ht 154.9 cm; Wt 51.7 kg
--- NOTE | 2016-09-26 12:41 | NUR ---
PT RESTING IN BED WITH EYES OPEN. FRIEND AT BEDSIDE. OT IN ROOM.
--- NOTE | 2016-09-26 15:00 | NUR ---
PT IS RESTING IN BED VISITING WITH A VISITOR. OT IN ROOM WITH PT.
--- NOTE | 2016-09-26 19:55 | NUR ---
PT. IN BED WITH HOB UP FOR COMFORT WITH EYES CLOSED AND RESP. EVEN. PT. AWAKENS EASILY FOR ASSESSMENT AND DENIES ANY NEEDS AT THIS TIME. CALL LIGHT WITHIN REACH.
[2016-09-26 20:30] VITALS: BP 110/42
--- NOTE | 2016-09-26 23:23 | NUR ---
PT. IN BED WITH HOB UP FOR COMFORT LYING ON HER RIGHT SIDE WITH EYES CLOSED AND RESP. EVEN. CALL LIGHT WITHIN REACH.
--- NOTE | 2016-09-27 04:03 | NUR ---
PT. IN BED WITH HOB UP FOR COMFORT WITH EYES CLOSED AND RESP. EVEN. CALL LIGHT WITHIN HER REACH.
[2016-09-27 07:00] VITALS: BP 115/52
--- NOTE | 2016-09-27 07:30 | NUR ---
RESTING QUIETLY IN BED CALL LIGHT IN REACH
--- NOTE | 2016-09-27 08:00 | NUR ---
PT RESTING IN BED WITH EYES CLOSED. AWOKE EASILY TO VERBAL STIMULI, BUT DRIFTS BACK TO SLEEP QUICKLY. PT ATE ONLY 1 SMALL BITE OF BISCUIT WITH BUTTER AND JELLY ON IT. REFUSED TO ATTEMPT TO EAT ANY MORE. O2 IS ON @ 2LPM PER NC. TELEMETRY UNIT IS INTACT. RIGHT GROIN INCISION IS CDI. SR'S ARE UP X 3 IN BED. CALL LIGHT AND BEDSIDE TABLE ARE WITHIN EASY REACH.
--- NOTE | 2016-09-27 10:06 | NUR ---
PT IS RESTING QUIETLY IN BED WITH EYES CLOSED. RESPS ARE EVEN AND UNLABORED. NO ACUTE DISTRESS NOTED.
--- NOTE | 2016-09-27 13:32 | NUR ---
PT IS RESTING IN BED WITH EYES OPEN. NO NEEDS VOICED. EATING VERY LITTLE LUNCH.
--- NOTE | 2016-09-27 18:25 | NUR ---
PT IS RESTING IN BED WITH EYES CLOSED. NO DISTRESS NOTED.
--- NOTE | 2016-09-27 19:15 | NUR ---
PATIENT HAD ROOMMATE CALL FOR ASSIST WITH OPENING HER STRAWBERRY ENSURE. ATE >10% OF HER DINNER MEAL. CLEANSED PATIENT AND CHANGED HER PULL-UP DUE TO MODERATE URINE INCONTINENCE. REPOSITIONED PATIENT UP IN BED ON HER BACK IN ORDER TO DRINK HER ENSURE. CONTINUES ON O2 @ 2L PER NASAL CANNULA.
--- NOTE | 2016-09-27 20:20 | NUR ---
RESTING IN BED ON LEFT SIDE, EYES CLOSED.
[2016-09-27 21:55] VITALS: BP 127/92
--- NOTE | 2016-09-27 21:55 | NUR ---
ASSESSMENT COMPLETE. GAVE PATIENT SCHEDULED HS MEDS PO. REPOSITIONED PATIENT HIGHER UP IN BED. LOWERED HOB TO 02 DEGREES FOR COMFORT.
--- NOTE | 2016-09-28 00:05 | NUR ---
RESTING IN BED, EYES CLOSED. MONITORING REPORTS PATIENT IN UCAF RANGING FROM 104 TO 128, BUT GENERALLY AROUND 116. PATIENT EARLIER HAD HER RYTHMOL 225MG. BUT STILL IS HAVING UCAF. DAY SHIFT REPORTED THAT PATIENT'S HR WAS 78 WITH FEW PVC'S IN THE AM, BUT ALSO THAT SHE WAS, "CARDIOVERTED IN PCU JUST BEFORE SHE WAS ADMITTED TO REHAB (ON 09/25/16).
--- NOTE | 2016-09-28 04:30 | NUR ---
CONTINUES IN BED, EYES CLOSED. NO APPARENT DISTRESS.
--- NOTE | 2016-09-28 06:00 | NUR ---
CLEANSED PATIENT AND CHANGED HER PULL-UP BRIEF AND PINK BED PAD DUE TO LARGE URINARY INCONTINENCE. DENIES CURRENT NEEDS.
--- NOTE | 2016-09-28 07:00 | NUR ---
PT. WAS RECEIVED AT THE BEGINNING OF THIS SHIFT IN BED WITH EYES CLOSED AND BREATHING EASY AND UNLABORED. PT. IS VERY LETHARGIC. VITAL SIGNS; TEMP. 98.1, PULSE 100, RESP. 15, B/P 113/64, 02SAT. 95%. ON 2L 02/NC. TELEMETRY ON. 02 PER NC GOING AT 2L/MIN. WILL BE MONITORING PT. AND ASSISTING PRN WITH ADL'S. CALL LIGHT IS IN REACH.
[2016-09-28 07:23] LABS: BASOPHILS 0.4 % (0.0-2.0); HEMATOCRIT 30.2 % (36.0-48.0); HEMOGLOBIN 9.4 g/dL (12-16); IMMATURE GRANULOCYTES 0.3 % (0-5); LYMPHOCYTES 12.6 % (15-50); MCH 29.7 pg (26.0-34.0); MCHC 31.1 g/dL (31.0-37.0); MCV 95.3 fL (80.0-100.0); MEAN PLATELET VOLUME 9.2 fL (7.4-10.4); NEUTROPHILS 75.7 % (40-80); PLATELET COUNT 378 10x3/uL (130-400); RBC 3.17 10x6/uL (4.00-5.40); WBC 12.5 10x3/uL (4.8-10.8)
[2016-09-28 07:31] LABS: CALC OSMOLALITY 284 mosm/kg (275-300); CALCIUM 8.9 mg/dL (8.5-10.1); CARBON DIOXIDE 29.1 mmol/L (21.0-32.0); CHLORIDE - SERUM 104 mmol/L (98-107); CREATININE - SERUM 0.6 mg/dL (0.6-1.3); GLUCOSE 105 mg/dL (74-106); POTASSIUM - SERUM 4.3 mmol/L (3.5-5.1); SODIUM 141 mmol/L (136-145); UREA NITROGEN 24 mg/dL (7-18); eGFR NON AFRICAN AMERICAN > 90 mL/min (90-120)
[2016-09-28 13:22] VITALS: BP 113/64
--- NOTE | 2016-09-28 14:17 | NUR ---
PT REFUSED A SHOWER THIS MORNING WHEN ASKED ABOUT TAKING ONE WITH THE AIDE. THERAPY TOOK PT. TO THE GYM AND REQUESTED SHE BE GIVEN SOMETHING FOR A HEADACHE. SHE WAS GIVEN TYLENOL WITH CODEINE AT 1:15PM. WILL BE OBSERVING HER FOR ANY FURTHER DISCOMFORT.
--- NOTE | 2016-09-28 18:31 | NUR ---
PT IS RESTING IN BED WITH EYES CLOSED. HER IS AT HER BEDSIDE SITTING WITH HER. NO SIGNS OF ANY DISCOMFORT OR DISTRESS. TOTAL CARE IS GIVEN NEEDED. SHE DID NOT EAT ANY OF HER SUPPER.
--- NOTE | 2016-09-28 19:30 | NUR ---
MEDICAL STAFF PHYSICIAN IN CHANGING PATIENT SUBSEQUENT TO INCONTINENCE IN BED.
[2016-09-28 20:45] VITALS: BP 111/52
--- NOTE | 2016-09-28 20:55 | NUR ---
ASSESSMENT AND HS MEDS COMPLETE AFTER REPOSITIONING PATIENT HIGHER UP IN BED TO FACILITATE SWALLOWING. HELD MARINOL DUE TO SOMNOLENCE DURING THE DAY AND IN ACCORDANCE WITH DAUGHTER'S WISHES (SHE IS THE PERSON WHO REQUESTED DR. IBARRA TO ORDER THE MARINOL APPETITE STIMULANT). ALSO HELD CARIZEM 60MG PO FOR MARGINAL BP OF 111/52. PATIENT WAS GIVEN HER RYTHMOL 225MG. CONTINUES ON TELEMETRY WITH REPORT OF CAF @ 88BPM. ALSO CONTINUES ON O2 @ 2L PER N/C. LEFT HEEL PINK BUT BLANCHABLE. BRIDGED HEELS WITH A PILLOW.
--- NOTE | 2016-09-28 22:15 | NUR ---
RESTING QUIETLY IN BED, EYES CLOSED.
--- NOTE | 2016-09-29 00:35 | NUR ---
RESTING IN BED, ON RIGHT SIDE. NO DISTRESS NOTED.
--- NOTE | 2016-09-29 01:50 | NUR ---
REMAINS IN BED, RESTING QUIETLY, EYES CLOSED.
--- NOTE | 2016-09-29 04:45 | NUR ---
REMAINS IN BED, EYES CLOSED. RESPIRING QUIETLY.
--- NOTE | 2016-09-29 06:10 | NUR ---
RESTING IN BED AFTER SHE WAS RECENTLY CLEANSED AND PULL-UP WAS CHANGED FROM LARGE URINE INCONTINENCE DURING SLEEP. REPOSITIONED HER HIGHER UP IN BED. PATIENT DENIES NEEDS.
--- NOTE | 2016-09-29 07:30 | NUR ---
INTRODUCED SELF TO PT, NO NEEDS NOTED AT THIS TIME, CALL LIGHT WITHIN REACH.
[2016-09-29 08:35] VITALS: BP 119/77
--- NOTE | 2016-09-29 10:10 | NUR ---
MORNING MEDS GIVEN, PT TOLERATED WELL, WILL CONTINUE TO MONITOR, CALL LIGHT WITHIN REACH.
--- NOTE | 2016-09-29 10:45 | NUR ---
IV SITED TO LAC WITH 22 GA IV CATHETER X 1 STICK USING ASEPTIC TECHNIQUE PT TOLERATED WELL
--- NOTE | 2016-09-29 10:56 | NUR ---
DIGOXIN 0.5 MG GIVEN SLOW IVP HEART RATE 101 PT TOLERATED WELL
--- NOTE | 2016-09-29 12:30 | NUR ---
PT RESTING IN BED, PT STATES NOT HUNGRY, ENCOURAGED PT TO EAT, WILL CONTINUE TO MONITOR, CALL LIGHT WITHIN REACH.
--- NOTE | 2016-09-29 13:04 | RHP ---
PATIENT: DRE MYLES MEDICAL RECORD: [id number] ACCOUNT: [id number] LOCATION:[facility] Nina1111 : [birth year] ADMISSION DATE: 09/25/16 REHABILITATION HISTORY AND PHYSICAL EXAMINATION POST ADMISSION PHYSICIAN EXAMINATION DATE OF ADMISSION: 09/25/2016 ADMITTING DIAGNOSES TO THE REHAB: Acute coronary artery disease status post PTCA with stent times 3, new-onset uncontrolled AFib with rapid ventricular response and also status post cardioversion that required 200 joules. HISTORY OF PRESENT ILLNESS: The patient is an 89-year-old female patient admitted with acute coronary artery disease, new-onset AFib with rapid ventricular response and pneumonia. She is an 89-year-old female with a past medical history of coronary artery disease who presented with increasing weakness and fatigue. She had 2 stents placed last week on September 15 and September 16. She also received a third on the . Since her stent placement, she has been getting weaker and weaker. She has not felt like getting out of bed. She has a poor appetite. She had been short of breath. Chest x-ray showed mild chronic and old postoperative changes, some cardiac enlargement, mild central vascular congestion and small left pleural effusion with some underlying atelectasis, trace atelectasis or infiltrate in the right lung base. After her third on September 22, she developed new-onset AFib with rapid ventricular response. She was started on Rythmol, which did seem to help control her rate. She was given a loading dose of Cardizem 180 mg p.o. and started on 60 mg b.i.d. She remained in AFib with rapid ventricular response. It was felt that continued AFib was contributing cause of her weakness and fatigue. On September 24, she was given a one-time dose of ____ IV. She did not convert overnight. On September 25, she went back to the medical laboratory technical officer for cardioversion with 200 joules, which converted her to a normal sinus rhythm. Previously, she lived with her and daughter at [facility]. She says that she was moderately independent with ADLs and mobility using a rolling walker when needed. She has outside help prior to assist her at home. Currently, she is mod to max assist for ADLs and mobility for very short distances, she needs continuous cardiac monitoring post-cardioversion and O2 titration. She plans on returning home with her family to her prior level of functioning. COMORBIDITIES: Include pneumonia, pleural effusion, central vascular congestion, irregular heartbeat about elevated troponin, coronary artery disease status post CABG, fatigue, weakness, loss of appetite, hypokalemia, syncope, gait abnormality, neuropathy, cataract, TIA, spinal stenosis and chest pain. PAST MEDICAL HISTORY: Significant for hypertension, [place] in the past, known coronary artery disease. PAST SURGICAL HISTORY: Includes knee surgery, cataract surgery, appendectomy, coronary artery bypass graft times 3, she has had some epidurals, she has had wrist surgery and now has had stent placement. ALLERGIES: No known drug allergies. CURRENT MEDICATIONS: Include furosemide 20 mg daily, Plavix 75 mg daily, Os-Edson 500 mg daily, Ocuvite 1 tab daily, aspirin chewable 81 mg daily, Rythmol 225 mg HISTORY AND PHYSICAL [id number] DRE MYLES t.i.d., diltiazem 6 mg b.i.d. and Tylenol with codeine as needed. HABITS: No current alcohol or tobacco use. FAMILY HISTORY: Noncontributory. SOCIAL HISTORY: The patient would really like to return home this time, but she is really not strong enough and family states that they cannot take care of her at home, she would have to go to a chcf from here. REVIEW OF SYSTEMS: GENERAL: Does complain of weakness. HEENT: Denies cold, cough, or congestion. CARDIOVASCULAR: Denies chest pain. PHYSICAL EXAMINATION: VITAL SIGNS: Stable, afebrile. GENERAL: A thin, cachectic female, in no acute distress upon exam. HEENT: Normocephalic and atraumatic. Mucosa moist. NECK: Supple. No lymphadenopathy. LUNGS: Clear at this time. HEART: Regular rate and rhythm. ABDOMEN: Benign. EXTREMITIES: No clubbing, cyanosis, or edema. NEUROLOGIC: Slow to mentate, but seems intact. LABORATORY DATA: Her white count is 10.3, H&H 9.6 and 31 and platelet count is 351. Her admit UA was negative. Her admit chemistry shows sodium 137, potassium 3.9, BUN and creatinine of 29 and 0.9 and blood sugar is 116. Her troponin on the was still elevated at 0.122. Her BNP was 3927. ASSESSMENT: This is an 89-year-old female patient admitted to rehab with a working diagnosis of acute coronary artery disease status post PTCA with stent times 3, new-onset uncontrolled atrial fibrillation with rapid ventricular response, which has now been cardioverted with 200 joules in the medical laboratory technical officer. The patient has potential to make improvement. We instituted the following multidisciplinary therapies including to, but not limited to physical, occupational, respiratory, speech, nutritional services, prosthetics and orthotics. Given her complex condition and risk for more complications, rehabilitation services cannot be provided at a low level of care such as a senior living facility. PLAN: 1. Admit to [facility] rehab for intensive inpatient therapy to include the following disciplines: A. Physical therapy to improve gait, all transfer skills and bed mobility to a modified independent level. B. Occupational therapy to improve activities of daily living to a modified independent level. C. Case management to assist with discharge planning and placement options. D. Nutrition to assist with nutritional needs. E. Rehabilitation nursing to assist in monitoring the patient's underlying medical conditions and to assist with any type of bowel or bladder management. 2. The patient's current medications and medical care will be continued. 3. The patient will be placed on standard fall precautions. HISTORY AND PHYSICAL [id number] DRE MYLES 4. We will monitor her heart rate closely and if needed, we will reconsultation cardiology or adjust medications. 5. I am going to go ahead and put her on some Marinol to hopefully increase her appetite and help with some of her current symptomatology. TRANSINT:[id number] Voice Confirmation ID: [id number] DOCUMENT ID: [id number] QUIQUE IBARRA MD at 1304 CC: [id number] DICTATION DATE: 09/26/16 1346 MARINE SAFETY OFFICER: 09/26/16 1553 ADM IN [facility] [address] [place] [address]
--- NOTE | 2016-09-29 13:51 | NUR ---
Nutrition Follow Up: Attempted to speak with pt but she would not answer. Per staff pt has had very poor po intake. Pt is eating 10% meal avg on a regular AHA diet. She is receiving Ensure BID. Wt stable. No BM since admit. Labs noted. Meds noted including Marinol, MV, Lasix. Will change diet to Regular to encourage po intake. Will continue to send Ensure BID. Will continue to provide selective menus and honor food preferences. RD following.
--- NOTE | 2016-09-29 15:07 | NUR ---
PT STATES PAIN IN HIP AND BACK, PAIN MED GIVEN, WILL CONTINUE TO MONITOR, CALL LIGHT WITHIN REACH.
--- NOTE | 2016-09-29 17:20 | NUR ---
RESTING QUIETLY WITH HOB UP 30 DEGRESS. AT BEDSIDE. RESP EVEN AND UNLAB. BED ALARM INTACT FOR SAFETY. CL AT SIDE
--- NOTE | 2016-09-29 19:00 | NUR ---
RESTING IN BED, EYES CLOSED. NO EVIDENT DISTRESS.
[2016-09-29 19:16] VITALS: BP 121/65
--- NOTE | 2016-09-29 20:20 | NUR ---
RESTING QUIETLY IN BED ON RIGHT SIDE. APPEARS COMFORTABLE.
--- NOTE | 2016-09-29 22:00 | NUR ---
AWOKE PATIENT FOR ASSESSMENT AND HS MEDS. FLUSHED LEFT AC S/L. REMAINS PATENT. PATIENT DENIES CURRENT NEEDS.
--- NOTE | 2016-09-29 23:50 | NUR ---
RESTING IN BED ON RIGHT SIDE. APPEARS COMFORTABLE.
--- NOTE | 2016-09-30 02:40 | NUR ---
CONTINUES IN BED ON RIGHT SIDE, EYES CLOSED. NO DISTRESS NOTED.
--- NOTE | 2016-09-30 05:50 | NUR ---
AWOKE PATIENT FOR DELIVERY OF PO PROTONIX. SAYS SHE DLEPT VERY WELL AND DENIES CURRENT NEEDS.
--- NOTE | 2016-09-30 06:00 | NUR ---
CLEANSED PATIENT AND CHANGED HER PINK BED PAD AND PULL-UP BRIEF AFTER LARGE URINARY INCONTINENCE IN BED. ALSO CHANGED HER FROM GOWN TO SCRUB TOP. SCRUB BOTTOM LEFT OFFF TO FACILITATE CHANGES DUE TO INCTONTINENCE PRIOR TO THERAPY.
[2016-09-30 06:29] LABS: BASOPHILS 0.6 % (0.0-2.0); EOSINOPHILS 3.6 % (0-7); HEMATOCRIT 33.8 % (36.0-48.0); HEMOGLOBIN 10.3 g/dL (12-16); IMMATURE GRANULOCYTES 0.3 % (0-5); LYMPHOCYTES 20.7 % (15-50); MCH 29.4 pg (26.0-34.0); MCHC 30.5 g/dL (31.0-37.0); MCV 96.6 fL (80.0-100.0); MEAN PLATELET VOLUME 9.3 fL (7.4-10.4); NEUTROPHILS 64.8 % (40-80); PLATELET COUNT 399 10x3/uL (130-400); WBC 10.5 10x3/uL (4.8-10.8)
[2016-09-30 06:43] LABS: CARBON DIOXIDE 30.4 mmol/L (21.0-32.0); POTASSIUM - SERUM 4.4 mmol/L (3.5-5.1)
[2016-09-30 06:52] LABS: CREATININE - SERUM 0.9 mg/dL (0.6-1.3)
--- NOTE | 2016-09-30 07:28 | NUR ---
PT IS RESTING QUIETLY IN BED WITH EYES CLOSED. RESPS ARE EVEN AND UNLABORED. NO ACUTE DISTRESS NOTED. O2 IS ON @ 2LPM PER NC. SALINE LOCK NOTED TO LEFT AC. NO REDNESS OR EDEMA NOTED AT THE INSERTION SITE. TELEMETRY UNIT IS ON AND INTACT. SR'S ARE UP X 3 IN BED. CALL LIGHT AND BEDSIDE TABLE ARE WITHIN EASY REACH.
[2016-09-30 09:01] VITALS: BP 122/61
--- NOTE | 2016-09-30 10:13 | NUR ---
PT IS RESTING QUIETLY IN BED WITH EYES CLOSED.
--- NOTE | 2016-09-30 13:18 | NUR ---
PT TO THERAPY AT THIS TIME.
--- NOTE | 2016-09-30 15:26 | NUR ---
IN BED.CL IN REACH.
--- NOTE | 2016-09-30 16:45 | NUR ---
CARE TEAM MEETING: PATIENT TENATIVE DISCHARGE DATE IS 10/08/16 AND WILL BE RA AT NEXT MEETING. WILL CONTINUE TO FOLLOW WITH PATIENT AND WILL SPEAK WITH MR. MYLES REGARDING DISCHARGE PLANS.
--- NOTE | 2016-09-30 17:40 | NUR ---
PT IS FEEDING SELF SUPPER IN BED WITH HOB UP 45 DEGREES. NO SWALLOWING PROBLEMS NOTED.
--- NOTE | 2016-09-30 19:25 | NUR ---
IN BED, RESTING QUIETLY, EYES CLOSED.
[2016-09-30 19:54] VITALS: BP 118/62
--- NOTE | 2016-09-30 20:50 | NUR ---
CONTINUES IN BED, EYES CLOSED. NO DISTRESS NOTED.
--- NOTE | 2016-09-30 22:00 | NUR ---
CLEANSED PATIENT AND CHANGED HER SCRUB TOP, PULL-UP BREIF AND ALL BED LINENS DUE TO URINE INCONTINENCE IN BED. ASSESSMENT AND HS MEDS WERE THEN COMPLETED. DENIES PAIN OR OTHER DISTRESS.
--- NOTE | 2016-10-01 00:30 | NUR ---
RESTING IN PARTIAL RIGHT SIDELYING POSITION WITH HOB UP 15 DEGREES. APPEARS COMFORTABLE.
--- NOTE | 2016-10-01 02:10 | NUR ---
IN BED, EYES CLOSED. NO APPARENT DISTRESS.
--- NOTE | 2016-10-01 04:45 | NUR ---
IN BED, EYES CLOSED. RESPIRATIONS ARE QUIET AND UNLABORED.
--- NOTE | 2016-10-01 06:00 | NUR ---
CLEANSED PATIENT FROM LARGE URINE INCONTINENCE IN BRIEF. APPLIED MOSHE'S BUT PASTE TO VERY RED PERINEAL AREA. APPLIED FRESH PULL-UP BRIEF AND FLUSHED LEFT AC S/L--REMAINS PATENT.
--- NOTE | 2016-10-01 07:30 | NUR ---
PT RESTING IN BED WITH EYES OPEN CALL LIGHT IN REACH WILL MONITER
--- NOTE | 2016-10-01 08:00 | NUR ---
IN BED.CL IN REACH.
[2016-10-01 09:02] VITALS: BP 127/50
--- NOTE | 2016-10-01 16:32 | NUR ---
PT RESTING IN BED WITH VISITORS AT BEDSIDE TOLERATING WELL WILL MONITER
--- NOTE | 2016-10-01 20:01 | NUR ---
PT RESTING IN BED, EYES CLOSED. AROUSES EASILY TO VOICE FOR ASSESSMENT. PT DENIES NEEDS. WCTM. BED LOW. CL IN [facility].
[2016-10-01 20:57] VITALS: BP 115/76
--- NOTE | 2016-10-01 22:23 | NUR ---
PT TOOK HS MEDS WITHOUT DIFFICULTY. PT RESTING AND DENIES NEEDS. BED LOW. CL IN REACH. WCTM.
--- NOTE | 2016-10-02 00:15 | NUR ---
PT RESTING, EYES CLOSED. RR ARE EVEN AND UNLABORED. BED LOW. CL IN [facility]. TM.
--- NOTE | 2016-10-02 03:03 | NUR ---
PT RESTING, EYES CLOSED. BED LOW. CL IN REACH. WCTM.
[2016-10-02 06:00] LABS: BASOPHILS 0.4 % (0.0-2.0); EOSINOPHILS 2.8 % (0-7); HEMATOCRIT 32.5 % (36.0-48.0); IMMATURE GRANULOCYTES 0.5 % (0-5); LYMPHOCYTES 20.9 % (15-50); MCH 29.2 pg (26.0-34.0); MCHC 30.8 g/dL (31.0-37.0); MCV 94.8 fL (80.0-100.0); MEAN PLATELET VOLUME 9.3 fL (7.4-10.4); MONOCYTES 9.6 % (2-11); NEUTROPHILS 65.8 % (40-80); PLATELET COUNT 404 10x3/uL (130-400); RBC 3.43 10x6/uL (4.00-5.40); WBC 10.5 10x3/uL (4.8-10.8)
--- NOTE | 2016-10-02 06:14 | NUR ---
PT BRIEF CHANGED DUE TO INCONT URINE. PT DENEIS NEEDS. WCTM. BED LOW. CL INR EACH.
[2016-10-02 06:59] LABS: ANION GAP 12.6 mmol/L (8-16); CALCIUM 8.6 mg/dL (8.5-10.1); CARBON DIOXIDE 28.7 mmol/L (21.0-32.0); CREATININE - SERUM 0.9 mg/dL (0.6-1.3); POTASSIUM - SERUM 4.3 mmol/L (3.5-5.1)
--- NOTE | 2016-10-02 08:01 | NUR ---
PT RESTING IN BED WITH EYES OPEN CALL LIGHT IN REACH WILL MONITER PT REPOSISTINED CHECKED FOR INCONTINECNE PT DRY BREAKFAST TRAY SET UP FOR PT WILL MONITER
[2016-10-02 08:40] VITALS: BP 148/56
--- NOTE | 2016-10-02 13:45 | NUR ---
PT RESTING IN BED WITH EYES OPEN CALL LIGHT IN REACH WILL MONITER
[2016-10-02 18:58] VITALS: BP 138/54
--- NOTE | 2016-10-02 20:05 | NUR ---
PT RESTING, EYES CLOSED. PT AROUSES EASILY TO VOICE AND DENIES NEEDS. WCTM. BED LOW. CLIN REACH.
--- NOTE | 2016-10-02 21:10 | NUR ---
PT HS MEDS ADMINISTERED WITHOUT DIFFICULTY. PT DENIES NEEDS. WCTM. BED LOW. CLIN [facility].
--- NOTE | 2016-10-02 23:35 | NUR ---
PT RESTING, EYES CLOSED. BED LOW. CL IN [facility].
--- NOTE | 2016-10-03 01:15 | NUR ---
PT RESTING, EYES CLOSED. BED LOW. CL IN [facility].
[2016-10-03 07:00] VITALS: BP 133/55
--- NOTE | 2016-10-03 07:45 | NUR ---
PT RESTING IN BED WITH EYES CLOSED. AWOKE TO VERBAL STIMULI. PT RESISTED COMING AWAKE TO EAT BREAKFAST, BUT DID FINALLY. SHE ATE A COUPLE BITES OF EGGS AND 1 SLICE OF MALIK, AND HALF OF HER ENSURE. SR'S ARE UP X 3 IN BED. CALL LIGHT AND BEDSIDE TABLE ARE WITHIN EASY REACH. BED ALARM IS ON.
--- NOTE | 2016-10-03 09:40 | NUR ---
PT IS RESTING QUIETLY IN BED WITH EYES CLOSED. RESPS ARE EVEN AND UNLABORED. NO ACUTE DISTRESS NOTED.
--- NOTE | 2016-10-03 12:01 | NUR ---
PT IS SITTING UP IN WC FOR LUNCH. FEEDING SELF SLOWLY. PT STATING THAT SHE DOES NOT WANT TO EAT. " I ONLY WANT TO LAY DOWN AND REST." PT ENCOURAGED TO EAT, AND IS EATING A OCCASIONAL BITE. WILL MONITOR CLOSELY.
--- NOTE | 2016-10-03 12:01 | NUR ---
PT IS FEEDING SELF LUNCH SITTING ON THE SIDE OF HER BED. NO SWALLOW PROBLEMS NOTED. NO NEEDS VOICED.
--- NOTE | 2016-10-03 13:28 | NUR ---
PT IS RESTING QUIETLY IN BED WITH EYES CLOSED. RESPS ARE EVEN AND UNLABORED. NO ACUTE DISTRESS NOTED.
--- NOTE | 2016-10-03 18:42 | NUR ---
RESTING QUIETLY IN BED CALL LIGHT IN REACH
--- NOTE | 2016-10-03 19:50 | NUR ---
PT ENCOURAGED TO DRINK ENSURE. PT TOOK 2 SMALL SIPS AND REFUSED ANYMORE. WCTM. BED LOW. CL IN REACH.
--- NOTE | 2016-10-03 21:15 | NUR ---
PT HS MEDS ADMINISTERED. PT ENCOURAGED TO DRINK MORE ENSURE. PT TOOK 3 SMALL SIPS AND WOULDN'T DRINK ANYMORE. WCTM. BED LOW. CL IN REACH.
--- NOTE | 2016-10-03 23:25 | NUR ---
PT RESTING, EYES CLOSED. BED LOW. CL IN REACH.
--- NOTE | 2016-10-04 01:01 | NUR ---
PT RESTING, EYES CLOSED. BED LOW. CL IN REACH.
--- NOTE | 2016-10-04 03:15 | NUR ---
PT RESTING, EYES CLOSED. RR ARE EVEN AND UNLABORED. WCTM. BED LOW. CL IN REACH.
--- NOTE | 2016-10-04 05:54 | NUR ---
PT BRIEF CHANGED OF INCONTINENT URINE. PT DENIES NEEDS. BED LOW. CL IN REACH.
[2016-10-04 07:00] VITALS: BP 140/64
--- NOTE | 2016-10-04 07:30 | NUR ---
PT RESTING IN BED WITH EYES CLOSED. AWOKE TO VERBAL STIMULI, BUT RESISTED CARE. PT STATED, I DONT WANT TO GET UP, PLEASE LET ME SLEEP. PT ENCOURAGED TO TRY AND EAT SOME BREAKFAST. HOB ELEVATED UP 40 DEGREES. PT ATE 3 BITES OF TOAST WITH BUTTER AND ABOUT HALF A BOTTOLE OF ENSURE. SHE REFUSED TO TRY ANY MORE THAN THIS. SR'S ARE UP X 3 IN BED. CALL LIGHT AND BEDSIDE TABLE ARE WITHIN EASY REACH.
--- NOTE | 2016-10-04 07:30 | NUR ---
SLEEPING ON SIDE.CL IN REACH.
--- NOTE | 2016-10-04 09:29 | NUR ---
PT IS RESTING QUIETLY IN BED WITH EYES CLOSED. RESPS ARE EVEN AND UNLABORED. NO ACUTE DISTRESS NOTED.
--- NOTE | 2016-10-04 12:01 | NUR ---
PT UP IN WC EATING LUNCH WITH ASSIST FROM HER DAUGHTER. NO ACUTE DISTRESS NOTED.
--- NOTE | 2016-10-04 15:00 | NUR ---
PT IS RESTING QUIETLY IN BED WITH EYES CLOSED. RESPS ARE EVEN AND UNLABORED. NO ACUTE DISTRESS NOTED.
[2016-10-04 19:00] VITALS: BP 109/72
--- NOTE | 2016-10-04 19:20 | NUR ---
RESTING IN BED ON RIGHT SIDE, EYES CLOSED. NO DISTRESS NOTED. SUPERVISOR VEGETABLE FARMING REPORTS PATIENT WAS RECENTLY CHANGED DUE TO URINE INCONTINENCE.
--- NOTE | 2016-10-04 21:40 | NUR ---
ASSESSMENT AND HS MEDS COMPLETE. DENIES CURRENT NEEDS. SEPARATING MACHINE OPERATOR TO CHANGE PATIENT'S SCRUB TOP NOW DUE TO FOOD STAINS.
--- NOTE | 2016-10-05 02:00 | NUR ---
REMAINS IN BED, RESTING ON RIGHT SIDE. NO EVIDENT DISTRESS.
--- NOTE | 2016-10-05 03:50 | NUR ---
RESTING IN BED, EYES CLOSED. RESPIRATIONS UNLABORED.
--- NOTE | 2016-10-05 05:35 | NUR ---
RESTING IN BED, EYES CLOSED.
[2016-10-05 06:14] LABS: BASOPHILS 0.5 % (0.0-2.0); EOSINOPHILS 3.8 % (0-7); HEMATOCRIT 33.2 % (36.0-48.0); HEMOGLOBIN 10.4 g/dL (12-16); IMMATURE GRANULOCYTES 0.3 % (0-5); LYMPHOCYTES 22.3 % (15-50); MCH 29.5 pg (26.0-34.0); MCHC 31.3 g/dL (31.0-37.0); MCV 94.1 fL (80.0-100.0); MEAN PLATELET VOLUME 9.2 fL (7.4-10.4); MONOCYTES 8.2 % (2-11); NEUTROPHILS 64.9 % (40-80); PLATELET COUNT 366 10x3/uL (130-400); RBC 3.53 10x6/uL (4.00-5.40); RDW 13.4 % (11.5-14.5); WBC 9.8 10x3/uL (4.8-10.8)
[2016-10-05 06:28] LABS: ANION GAP 12.8 mmol/L (8-16); CALCIUM 8.4 mg/dL (8.5-10.1); CARBON DIOXIDE 26.5 mmol/L (21.0-32.0); CREATININE - SERUM 0.9 mg/dL (0.6-1.3); POTASSIUM - SERUM 4.3 mmol/L (3.5-5.1)
--- NOTE | 2016-10-05 07:30 | NUR ---
RESTING QUIETLY IN BED CALL LIGHT IN REACH
[2016-10-05 08:12] VITALS: BP 129/65
--- NOTE | 2016-10-05 12:33 | NUR ---
PATIENT SITTING UP IN A CHAIR AT BEDSIDE TO EAT LUNCH.
--- NOTE | 2016-10-05 15:45 | NUR ---
PATIENT HAS VISITOR IN ROOM. HELPED TO BATHROOM. INCOTINANT OF URINE. MOD ASST OF TWO TO PUT BACK TO BED
--- NOTE | 2016-10-05 17:30 | NUR ---
MOLLY IN ROOM AND HELPING MOTHER EAT SUPPER
--- NOTE | 2016-10-05 18:55 | NUR ---
RESTING IN BED ON RIGHT SIDE. NO DISTRESS NOTED.
[2016-10-05 20:26] VITALS: BP 128/78
--- NOTE | 2016-10-05 21:45 | NUR ---
ASSESSMENT AND HS MEDS COMPLETE. DENIES NEEDS. PATIENT CURRENTLY DRY TO INCONTINENCE. WILL HAVE DEICER ELEMENT WINDER MACHINE CHECK HER AGAIN PRIOR TO 2300 HRS. CONTINUES ON O2 @ 2L PER N/C.
--- NOTE | 2016-10-05 22:35 | NUR ---
RESTING QUIETLY IN BED ON RIGHT SIDE. NO DISTRESS NOTED.
--- NOTE | 2016-10-06 00:25 | NUR ---
RESTING IN BED ON RIGHT SIDE. APPEARS COMFORTABLE.
--- NOTE | 2016-10-06 02:00 | NUR ---
CAUGHT PATIENT ATTEMPTING OOB. REPLACED PULL-UP BRIEF WHICH SHE HAD THROWN ON FLOOR. PATIENT VERY CONFUSED. ASKING WHERE HER FAMILY IS AND SAYS SHE WANTS THEM TO TAKE HER HOME. ASSURED HER THAT HER AND DAUGHTER HAVE BEEN VISITING HER REGULARLY AND THAT THEY KNOW SHE IS HERE FOR REHABILITATION.
--- NOTE | 2016-10-06 04:45 | NUR ---
RESTING IN BED ON LEFT SIDE, EYES CLOSED. HAS MADE NO MORE ATTEMPTS OOB EARLIER DESCRIBED AT 0200.
--- NOTE | 2016-10-06 07:00 | NUR ---
PT WAS RECEIVED AT THE BEGINNING OF THIS SHIFT IN BED WITH EYES CLOSED. SHE IS ORIENTED TO PERSON. VITAL SIGNS; TEMP. 97.8, PULSE 98, RESP. 14, B/P 114/51, 02SAT 92%. NO SIGNS OF ANY DISCOMFORT OR DISTRESS. WILL BE MONITORING PT. AND ASSISTING PRN WITH ADL'S. CALL LIGHT IS IN REACH.
--- NOTE | 2016-10-06 09:55 | NUR ---
Nutrition Follow Up: Pt was in therapy at the time of RD visit. Chart reviewed. Per nursing notes pt continues not wanting to eat despite much encouragement from staff. Pt is eating 24% meal avg on a regular diet. No new wt to assess. No BM x 11 days. Labs reviewed. Meds noted including Remeron, Megace, MV, Lasix. Pt continues with very poor po intake - not meeting est nutritional needs. Rec continue current diet. Will increase Ensure to TID. Rec continue appetite stimulant. Rec bowel regimen. RD following.
[2016-10-06 11:09] VITALS: BP 114/51
--- NOTE | 2016-10-06 14:40 | NUR ---
PT HAS RETURNED TO ROOM FROM THERAPY. SHE IS SITTING IN WHEELCHAIR WITH CALL LIGHT IN REACH. NO VOICED COMPLAINTS OR SIGNS OF DISCOMFORT OR DISTRESS.
[2016-10-06 19:14] VITALS: BP 136/64
--- NOTE | 2016-10-06 20:02 | NUR ---
RESTING IN ON RIGHT SIDE, EYES CLOSED.
--- NOTE | 2016-10-07 06:45 | NUR ---
CLEANSED AND CHANGED PATIENT FROM SMALL URINE INCONTINENCE IN BRIEF. CHANGED SCRUB TOP DUE TO SOILING WITH FOOD FROM YESTERDAY.
[2016-10-07 06:57] LABS: BASOPHILS 0.3 % (0.0-2.0); EOSINOPHILS 2.6 % (0-7); HEMATOCRIT 31.4 % (36.0-48.0); HEMOGLOBIN 9.8 g/dL (12-16); IMMATURE GRANULOCYTES 0.3 % (0-5); LYMPHOCYTES 22.5 % (15-50); MCH 29.5 pg (26.0-34.0); MCHC 31.2 g/dL (31.0-37.0); MCV 94.6 fL (80.0-100.0); MEAN PLATELET VOLUME 9.4 fL (7.4-10.4); MONOCYTES 11.3 % (2-11); PLATELET COUNT 370 10x3/uL (130-400); RBC 3.32 10x6/uL (4.00-5.40); RDW 13.6 % (11.5-14.5); WBC 8.9 10x3/uL (4.8-10.8)
--- NOTE | 2016-10-07 07:00 | NUR ---
PT. WAS RECEIVED AT THE BEGINNING OF THIS SHIFT IN BED WITH EYES CLOSED. BREATHING EASY AND UNLABORED. VITAL SIGNS; TEMP. 97.6. PULSE 91, RESP. 15, B/P 130/68, 02SAT. 94% ON 3L 02. PT IS TOTAL CARE. ALL ADL'S ARE ASSISTED BY STAFF. NO SIGNS OF ANY DISCOMFORT OR DISTRESS. CALL LIGHT IS IN REACH.
[2016-10-07 07:06] LABS: ANION GAP 12.5 mmol/L (8-16); CALCIUM 8.5 mg/dL (8.5-10.1); CARBON DIOXIDE 26.9 mmol/L (21.0-32.0); CREATININE - SERUM 0.9 mg/dL (0.6-1.3); POTASSIUM - SERUM 4.4 mmol/L (3.5-5.1)
[2016-10-07 09:07] VITALS: BP 130/68
--- NOTE | 2016-10-07 10:25 | NUR ---
REFERRAL MADE TO [facility]
[2016-10-07] MEDS ORDERED: MEGACE400 MG/10 PO (12:25)
--- NOTE | 2016-10-07 15:47 | NUR ---
NO BED AVAILABLE AT [place], SPOUSE REQUEST [facility] . REFERRAL HAS BEEN FAXED . WILL CONTINUE TO FOLLOW WITH PATIENT
--- NOTE | 2016-10-07 17:05 | NUR ---
CARE TEAM MEETING: PATIENT DAUGHTER ATTENDED MEETING. REFERRAL HAS BEEN SENT TO [facility] FOR POSSIBLE ADMISSION ON 10/09/16. WILL CONTINUE TO FOLLOW WITH PATIENT
--- NOTE | 2016-10-07 17:57 | NUR ---
PT WAS SEEN BY DR. IBARRA THIS MORNING. NEW ORDER RECEIVED FOR A DISCHARGE TOMORROW. PT. HAD A SHOWER THIS MORNING WITH THE HELP OF OT. PT. HAD AN UNEVENTFUL DAY TODAY. IS VISITING HER AT THIS TIME.
--- NOTE | 2016-10-07 18:00 | NUR ---
PATIENT IN BED. FAMILY AT BEDSIDE.
[2016-10-07 19:15] VITALS: BP 142/56
--- NOTE | 2016-10-07 20:05 | NUR ---
ASSESSMENT AND HS MEDS COMPLETE. CLEANSED AND CHANGED PATIENT OF SMALL URNE INCONTINENCE IN PULL-UP. APPLIED FRESH PULL-UP AFTER APPLYING NYSTATIN OINTMENT TO REDDENED AND PEELING PERINEAL AREA.
--- NOTE | 2016-10-07 22:05 | NUR ---
RESTING QUIETLY IN BED, EYES CLOSED. LYING ON LEFT SIDE.
--- NOTE | 2016-10-08 00:35 | NUR ---
RESTING IN BED ON LEFT SIDE. NO DISTRESS NOTED.
--- NOTE | 2016-10-08 03:00 | NUR ---
CONTINUES IN BED, LYING ON LEFT SIDE. MOANING A FEW TIMES IN HER SLEEP.
--- NOTE | 2016-10-08 04:20 | NUR ---
IN BED, EYES CLOSED. LEFT SIDELYING. RESPIRATIONS ARE QUIET AND UNLABORED.
--- NOTE | 2016-10-08 05:35 | NUR ---
CONTINUES IN BED, EYES CLOSED.
--- NOTE | 2016-10-08 08:10 | NUR ---
PT IS RESTING IN BED WITH HOB ELEVATED 40 DEGREES. FED SELF BREAKFAST, EATING 3 BITES OF BISCUET. HALF HER MALIK, AND 4 OZ OF ORANGE JUICE. PT REFUSED TO TRY TO EAT ANY MORE. NO INCONTINENCE NOTED AT THIS TIME. SR'S ARE UP X 3 IN BED. CALL LIGHT AND BEDSIDE TABLE ARE WITHIN EASY REACH.
[2016-10-08 08:17] VITALS: BP 100/56
--- NOTE | 2016-10-08 10:31 | NUR ---
PT IS RESTING QUIETLY IN BED WITH EYES CLOSED. RESPS ARE EVEN AND UNLABORED. NO ACUTE DISTRESS NOTED.
--- NOTE | 2016-10-08 12:18 | NUR ---
PT EATING LUNCH IN BED WITHOUT ASSIST. HOB UP 45 DEGREES. DAUGHTER AT BEDSIDE. PIECE OF BIRTHDAY CAKE ORDERED FROM THE DINING ROOM.
--- NOTE | 2016-10-08 15:19 | NUR ---
PT RESTING IN BED WITH EYES CLOSED. NO DISTRESS NOTED.
--- NOTE | 2016-10-08 16:21 | NUR ---
PATIENT HAS BEEN ACCEPTED TO [facility]. PATIENT WILL TRANSPORT THERE VIA [facility]. NO DME OR HOME HEALTH NEEDED AT THIS TIME. AN APPOINTMENT WITH DR. HENRY WILL BE MADE AT TIME OF DISCHARGE FROM FACILITY. PATIENT CHOICE FOR SNF AND [facility] FORM SIGNED EXPLAINED AND FILED IN CHART. WILL CONTINUE TO FOLLOW WITH PATIENT UNTIL DISCHARGED TO FACILITY ON 10/09/16
--- NOTE | 2016-10-08 17:30 | NUR ---
ASSISTED UP IN BED. AT BEDSIDE.CL IN REACH.ASSISTING WITH MEAL.
--- NOTE | 2016-10-08 18:14 | NUR ---
PT RESTING IN BED. FED SELF SOME SUPPER. NO NEEDS VOICED. SPOUSE AT BEDSIDE.
[2016-10-08 19:10] VITALS: BP 110/58
--- NOTE | 2016-10-08 19:35 | NUR ---
PT RECEIVED IN BED WITH EYES CLOSED AND CHEST RISING. EASILY AROUSED TO VERBAL STIMULI. NO CONCERNS MADE KNOWN. CALL LIGHT IN REACH.
--- NOTE | 2016-10-09 01:28 | NUR ---
PT IN BED WITH EYES CLOSED AND CHEST RISING. NO SIGN/SYMPTOMS OF DISTRESS NOTED. CALL LIGHT IN REACH.
[2016-10-09 06:26] LABS: BASOPHILS 0.6 % (0.0-2.0); HEMATOCRIT 32.4 % (36.0-48.0); HEMOGLOBIN 10.3 g/dL (12-16); IMMATURE GRANULOCYTES 0.3 % (0-5); LYMPHOCYTES 19.5 % (15-50); MCH 29.9 pg (26.0-34.0); MCHC 31.8 g/dL (31.0-37.0); MCV 93.9 fL (80.0-100.0); MEAN PLATELET VOLUME 9.3 fL (7.4-10.4); MONOCYTES 8.8 % (2-11); NEUTROPHILS 67.8 % (40-80); PLATELET COUNT 381 10x3/uL (130-400); RBC 3.45 10x6/uL (4.00-5.40); RDW 13.8 % (11.5-14.5); WBC 8.8 10x3/uL (4.8-10.8)
[2016-10-09 06:47] LABS: ANION GAP 11.8 mmol/L (8-16); CALCIUM 8.6 mg/dL (8.5-10.1); CARBON DIOXIDE 27.6 mmol/L (21.0-32.0); POTASSIUM - SERUM 4.4 mmol/L (3.5-5.1)
--- NOTE | 2016-10-09 07:40 | NUR ---
PT IN BED WITH EYES CLOSED AND CHEST RISING. NO CONCERNS MADE KNOWN. CALL LIGHT IN REACH.
[2016-10-09 08:00] VITALS: BP 114/68
--- NOTE | 2016-10-09 10:35 | NUR ---
PT DRESSED, AND BATH GIVEN. READY TO DC TO [facility] TODAY.
--- NOTE | 2016-10-09 12:10 | NUR ---
REPORT CALLED TO HERBERT AT [facility].
--- NOTE | 2016-10-09 12:47 | NUR ---
PT RESTING IN BED AWAITING [facility] [place].
--- NOTE | 2016-10-09 12:55 | NUR ---
PT DC'D TO [facility] AT THIS TIME. DEPARTED UNIT VIA WC PROPELLED BY THEIR BAG WORKER.
== END 2016-10-09 12:56 | DRG 302 ==
LOC: D.REHAB 17:01
PROVIDERS: ADMIT Emergency Medicine
DX: I25.10 Atherosclerotic heart disease of native coronary artery without angina pectoris (principal); J18.9 Pneumonia, unspecified organism; J90 Pleural effusion, not elsewhere classified; Z95.5 Presence of coronary angioplasty implant and graft; I48.91 Unspecified atrial fibrillation; Z95.1 Presence of aortocoronary bypass graft; R53.83 Other fatigue; R53.1 Weakness; R63.0 Anorexia; E87.6 Hypokalemia; R55 Syncope and collapse; R26.9 Unspecified abnormalities of gait and mobility; G62.9 Polyneuropathy, unspecified; R07.9 Chest pain, unspecified

== ENCOUNTER 2016-10-12 13:55 | Inpatient (IN) | payer MEDICARE, OTHER ==
[~2016-10-12] VITALS: Ht 154.9 cm; Wt 46.7 kg
[~2016-10-12 13:55] MED LIST changes: +MEGACE400 MG/10 PO
[2016-10-12 15:06] LABS: APPEARANCE CLEAR (CLEAR); BILIRUBIN NEGATIVE (NEGATIVE); COLOR YELLOW (YELLOW); GLUCOSE NEGATIVE (NEGATIVE); KETONE NEGATIVE (NEGATIVE); LEUKOCYTE ESTERASE 2+ (NEGATIVE); NITRITE NEGATIVE (NEGATIVE); PROTEIN TRACE mg/dL (NEGATIVE); UROBILINOGEN NORMAL (NORMAL)
[2016-10-12 15:08] LABS: BACTERIA MANY /hpf (NONE SEEN); EPITHELIAL CELLS 0-5 /hpf (0-5); RED CELLS - URINE 0-5 /hpf (0-5)
[2016-10-12 15:13] LABS: BASOPHILS 0.5 % (0.0-2.0); EOSINOPHILS 3.6 % (0-7); HEMOGLOBIN 11.7 g/dL (12-16); IMMATURE GRANULOCYTES 0.4 % (0-5); LYMPHOCYTES 14.3 % (15-50); MCH 30.2 pg (26.0-34.0); MCHC 31.6 g/dL (31.0-37.0); MCV 95.6 fL (80.0-100.0); MEAN PLATELET VOLUME 9.4 fL (7.4-10.4); MONOCYTES 8.7 % (2-11); NEUTROPHILS 72.5 % (40-80); PLATELET COUNT 342 10x3/uL (130-400); RBC 3.87 10x6/uL (4.00-5.40); RDW 14.5 % (11.5-14.5)
[2016-10-12 15:53] LABS: ANION GAP 14.6 mmol/L (8-16); BILIRUBIN - TOTAL 0.26 mg/dL (0.2-1.3); CALCIUM 8.6 mg/dL (8.5-10.1); CARBON DIOXIDE 25.5 mmol/L (21.0-32.0); CREATININE - SERUM 1.1 mg/dL (0.6-1.3); POTASSIUM - SERUM 4.1 mmol/L (3.5-5.1); PROTEIN - SERUM 7.2 g/dL (6.4-8.2)
[2016-10-12 16:03] LABS: TROPONIN-I 0.128 ng/mL (0.000-0.060)
--- NOTE | 2016-10-12 19:15 | NUR ---
ASSESSMENT COMPLETE, RECEIVED TO ROOM 0059 ALERT AND ORIENTED X3 89 FEMALE VIA STRETCHER FROM ER WITH DR STARR AND DR VERA SEEING HER. LEFT ARM IV SL INTACT WITH NO R/S NOTED AT SITE. TELEMETRY SHOWING HR 107. UP WITH ASSIST. OLINDA WELL. HOB UP SR UP X2, C/L IN REACH. CONTINUE TO MONITOR.
[2016-10-12 22:46] VITALS: BP 138/69
[2016-10-13] VITALS (7 sets, daily range): BP systolic 101–138; BP diastolic 49–68; Ht 154.9 cm; Wt 46.7 kg
--- NOTE | 2016-10-13 00:43 | NUR ---
EYES CLOSED, RESP UNLAB WITH NO S/S OF ACUTE DISTRESS NOTED. C/L IN REACH. CONTINUE TO MONITOR.
--- NOTE | 2016-10-13 08:02 | NUR ---
ASSESSMENT COMPLETED. TELEMERTY SHOWS UCAF. LEFT ARM SL. DROUSY BUT DOES WAKE UP AND TALK. FAMILY AT BEDSIDE. SR UP WITH CALL LIGHT IN REACH. WILL MONITOR
--- NOTE | 2016-10-13 11:24 | NUR ---
REPOSITONED FOR COMFORT. NO NEEDS NOTED
--- NOTE | 2016-10-13 12:44 | NUR ---
REPOSITIONED FOR COMFORT. NO NEEDS VOICED. WILL MONITOR. SR UP WITH CALL LIGHT IN REACH
--- NOTE | 2016-10-13 18:03 | NUR ---
PATIENT ASLEEP MONITOR SHOWS AF @ 93. WILL CONTINUE TO MONITOR.
--- NOTE | 2016-10-13 18:18 | NUR ---
LYING QUIETLY WITH EYES CLOSED.. TELEMERTY SHOWS CAF AT 85. NO NEEDS NOTED
--- NOTE | 2016-10-13 19:00 | NUR ---
INITIAL ROUNDS MADE. PT SITTING UP IN BED WITH FAMILY IN ROOM. NO NEEDS OR C/O VOICED AT THIS TIME. CALL LIGHT IN REACH. WILL CONT TO MONITOR.
--- NOTE | 2016-10-13 19:31 | NUR ---
Patient Name: DRE MYLES Admission Status: ER Accout number: [id number] Admission Date: 10-12-2016 : 1925 Admission Diagnosis: Attending: YANIRA Current LOS: 1 Anticipated DC Date: TO BE DETERMINED Planned Disposition: [facility] Primary Insurance: MEDICARE A & B PLANNED EXTERNAL PROVIDER: [facility], MEDICARE REHAB BED Discharge Planning Comments: * Is the patient Alert and Oriented? Yes 0 * How many steps to enter\exit or inside your home? NONE 0 * PCP DR. BERNABE 0 * Pharmacy [facility] 0 * Preadmission Environment [facility] 0 * Facility Name [facility] 0 * ADLs Partial Dependent 0 * Partial ADLs (Assistance needed) Ambulation Bathing Medication Management Toileting Transfers 0 * Equipment Other 0 * Other Equipment ALL MEDICAL EQUIPMENT PROVIDED BY FACILITYI 0 * List name and contact numbers for known caregivers / representatives who currently or will assist patient after discharge: CHANDRAKANT MYLES, SPOUSE, 0 * Community resources currently utilized None 0 * Please name any agencies selected above. NONE 0 * Additional services required to return to the preadmission environment? No 0 * Can the patient safely return to the preadmission environment? Yes 0 * Has this patient been hospitalized within the prior 30 days at any hospital? Yes 0 CM SPOKE TO PT'S DAUGHTER AT [employer] [employer] WHO REQUESTED CM ASSISTANCE IN REHAB AT [facility] FOR PT. CM MET WITH PT AND SPOUSE IN ROOM TO DISCUSS DISCHARGE PLANNING AND NEEDS. PT WAS IN REHAB AT [facility] PRIOR TO ADMISSION THIS TIME AND WANTS PLACEMENT AT [place]. PT'S SPOUSE SIGNED CHOICE. IMPORTANT MESSAGE FROM MEDICARE PROVIDED AND EXPLAINED. PT'S SECOND CHOICE IS [facility] RETURN. CM FAXED REFERRAL TO [facility], . CM WAITING ADMISSION DETERMINATION FROM [facility]. Certified Performance Technologist: Ramón Patel
[2016-10-14 02:03] VITALS: BP 118/61
--- NOTE | 2016-10-14 04:12 | NUR ---
WREATH AND GARLAND MAKER HAND AT BEDSIDE FOR VS. NEEDS ADDRESSED. CALL LIGHT INREACH. WILL CONT TO MONITOR.
[2016-10-14 05:32] LABS: BASOPHILS 0.3 % (0.0-2.0); EOSINOPHILS 2.6 % (0-7); HEMATOCRIT 34.2 % (36.0-48.0); HEMOGLOBIN 10.7 g/dL (12-16); IMMATURE GRANULOCYTES 0.4 % (0-5); LYMPHOCYTES 17.4 % (15-50); MCH 29.7 pg (26.0-34.0); MCHC 31.3 g/dL (31.0-37.0); MEAN PLATELET VOLUME 9.6 fL (7.4-10.4); MONOCYTES 9.4 % (2-11); NEUTROPHILS 69.9 % (40-80); PLATELET COUNT 305 10x3/uL (130-400); RDW 14.5 % (11.5-14.5); WBC 10.5 10x3/uL (4.8-10.8)
[2016-10-14 05:44] VITALS: BP 99/51
[2016-10-14 06:01] LABS: ALBUMIN 2.6 g/dL (3.4-5.0); BILIRUBIN - TOTAL 0.4 mg/dL (0.2-1.3); CALCIUM 8.5 mg/dL (8.5-10.1); PROTEIN - SERUM 6.5 g/dL (6.4-8.2)
[2016-10-14 06:21] LABS: ANION GAP 13.2 mmol/L (8-16); POTASSIUM - SERUM 4.2 mmol/L (3.5-5.1)
[2016-10-14 07:52] VITALS: BP 121/66
--- NOTE | 2016-10-14 10:03 | NUR ---
TELEMETRY CAF. TO SLEEPY TO SIT UP WITH PT ASSIST. WILL MONITOR.
[2016-10-14 11:13] VITALS: BP 138/77
--- NOTE | 2016-10-14 12:15 | NUR ---
IN AND OUT CATH PERFORMED WITH 16FR W/300ML CLEAR/AUBREE NO SEDIMENT URINE RETRIEVED. 30CC COLLECTED FOR UA/UC. PT TOLERATED WELL. PERICARE COMPLETED POST CATH.
--- NOTE | 2016-10-14 13:09 | NUR ---
Patient Name: DRE MYLES Encounter No: [id number] : 1925 Primary Insurance: MEDICARE A & B Anticipated DC Date: Planned Disposition: [facility] Facility External Planned Provider: [facility], MEDICARE REHAB BED DCP follow-up note: CM RECEIVED CALL FROM [facility], REHAB BED AVAILABLE AND WILL ACCEPT PT AT DISCHARGE. [facility] WILL NEED MUCH ADVANCE NOTICE OF DISCHARGE POSSIBLE PT HAS MANAGED MEDICARE. CM NOTIFIED DR. ROSALINA MEDLEY'S NURSE. CM RECEIVED CALL FROM [facility] AFTER LUNCH WHO REPORTED PT COULD COME TOMORROW FOR REHAB IF DISCHARGED. PT NOTIFIED AND IN AGREEMENT WITH REHAB AT [facility]. FOR DISCHARGE ON OR AFTER 10-15-16, FAX DISCHARGE INFORMATION TO [facility], . NURSE REPORT TO BE CALLED TO [facility] AT [phone]. [facility] TO ARRANGE VAN TRANSPORT. Manufacturing Plant Technician: Ramón Patel
--- NOTE | 2016-10-14 19:49 | NUR ---
RESUMED CARE OF PT, LYING IN BED RESPIRATIONS EVEN AND UNLABORED ON ROOM AIR. 87 CAF ON TELEMETRY. REPOSITIONED FOR COMFORT TO RIGHT SIDE. AT BEDSIDE. CALL LIGHT IN REACH. WILL CONTINUE TO MONITOR. SEE NURSE ASSESSMENT.
[2016-10-14 20:00] VITALS: BP 115/57
[2016-10-15 00:49] VITALS: BP 130/58
--- NOTE | 2016-10-15 05:27 | NUR ---
CALL LIGHT IN REACH. WILL CONTINUE WITH PLAN OF CARE.
[2016-10-15 05:42] VITALS: BP 122/55
[2016-10-15 05:44] LABS: BASOPHILS 0.3 % (0.0-2.0); EOSINOPHILS 0.9 % (0-7); HEMATOCRIT 33.8 % (36.0-48.0); HEMOGLOBIN 10.8 g/dL (12-16); IMMATURE GRANULOCYTES 0.5 % (0-5); LYMPHOCYTES 15.9 % (15-50); MCH 30.1 pg (26.0-34.0); MCV 94.2 fL (80.0-100.0); MEAN PLATELET VOLUME 9.6 fL (7.4-10.4); MONOCYTES 9.8 % (2-11); NEUTROPHILS 72.6 % (40-80); PLATELET COUNT 292 10x3/uL (130-400); RBC 3.59 10x6/uL (4.00-5.40); RDW 14.3 % (11.5-14.5)
[2016-10-15 06:18] LABS: ANION GAP 15.9 mmol/L (8-16); CALCIUM 8.4 mg/dL (8.5-10.1); CARBON DIOXIDE 22.4 mmol/L (21.0-32.0); CREATININE - SERUM 0.9 mg/dL (0.6-1.3); POTASSIUM - SERUM 4.3 mmol/L (3.5-5.1)
[2016-10-15 08:22] VITALS: BP 104/50
--- NOTE | 2016-10-15 10:07 | NUR ---
TELEMETRY CAF. REFUSES BRK. MEDS GIVEN. SOME DIFFICULTY SWOLLOWING NOTED. WILL MONITOR.
[2016-10-15 11:46] VITALS: BP 100/52
--- NOTE | 2016-10-15 13:23 | NUR ---
Nutrition follow-up: Diet: Regular as tolerated PO intake ~25% of meals; pt has been refusing some meals Labs reviewed Wt: 102# May consider starting nutrition support for supplemental feeding - NGT vs PEG tube placement due to pt with weight loss and very poor po intake at this time. RDN following.
[2016-10-15 16:03] VITALS: BP 114/50
[2016-10-15 20:00] VITALS: BP 118/60
[2016-10-16] VITALS (7 sets, daily range): BP systolic 97–130; BP diastolic 46–76
--- NOTE | 2016-10-16 01:03 | NUR ---
LYING IN BED WITH EYES CLOSED. CALL LIGHT IN REACH. WILL CONTINUE TO MONITOR.
[2016-10-16 05:32] LABS: BASOPHILS 0.3 % (0.0-2.0); HEMATOCRIT 32.6 % (36.0-48.0); HEMOGLOBIN 10.3 g/dL (12-16); IMMATURE GRANULOCYTES 0.4 % (0-5); LYMPHOCYTES 14.3 % (15-50); MCH 29.9 pg (26.0-34.0); MCHC 31.6 g/dL (31.0-37.0); MCV 94.5 fL (80.0-100.0); MEAN PLATELET VOLUME 9.2 fL (7.4-10.4); MONOCYTES 9.1 % (2-11); NEUTROPHILS 74.9 % (40-80); PLATELET COUNT 273 10x3/uL (130-400); RBC 3.45 10x6/uL (4.00-5.40); RDW 14.4 % (11.5-14.5); WBC 12.8 10x3/uL (4.8-10.8)
[2016-10-16 06:08] LABS: CALC OSMOLALITY 288 mosm/kg (275-300); CALCIUM 8.3 mg/dL (8.5-10.1); CARBON DIOXIDE 23.7 mmol/L (21.0-32.0); CHLORIDE - SERUM 107 mmol/L (98-107); GLUCOSE 99 mg/dL (74-106); POTASSIUM - SERUM 3.9 mmol/L (3.5-5.1); PRO BNP 4764 pg/mL (0-450); SODIUM 142 mmol/L (136-145); T4 THYROXIN - FREE 1.55 ng/dL (0.76-1.46); THYROID STIMULATING HORMONE 1.33 uIU/mL (0.36-3.74); UREA NITROGEN 28 mg/dL (7-18); eGFR NON AFRICAN AMERICAN 55 mL/min (90-120)
[2016-10-16 06:10] LABS: TROPONIN-I < 0.017 ng/mL (0.000-0.060)
--- NOTE | 2016-10-16 06:33 | NUR ---
NO CHANGES FROM PREVIOUS ASSESSMENT, CALL LIGHT IN REACH. BED BATH AND LINENS CHANGED. REPOSITIONED FOR COMFORT TO LEFT SIDE.
--- NOTE | 2016-10-16 08:39 | NUR ---
IV SITE LEAKING, REMOVED WITH CATH INTACT. 22 GAUGE INSERTED IN LEFT FOREARM. MICHAEL CORDERO RN
--- NOTE | 2016-10-16 09:30 | NUR ---
TELEMETRY CAF. UP TO CHAIR WITH PT ASSIST.
--- NOTE | 2016-10-16 13:27 | NUR ---
LEAVING FOR SWALLOW EVAL BY CHAIR.
--- NOTE | 2016-10-16 19:00 | NUR ---
RECEIVED REPORT AND ASSUMED PT CARE FROM DAY SHIFT NURSE @ THIS TIME.
--- NOTE | 2016-10-16 21:15 | NUR ---
PT RESTING WELL WITHOUT C/O OR DISTRESS NOTED. FEW NEEDS VOICED. WILL CONT TO MONITOR.
[2016-10-17] VITALS: BP 107/70
[2016-10-17 04:26] VITALS: BP 108/53
[2016-10-17 06:52] LABS: BASOPHILS 0.4 % (0-2); EOSINOPHILS 1.6 % (0-7); HEMATOCRIT 30.3 % (36.0-48.0); HEMOGLOBIN 9.6 g/dL (12-16); IMMATURE GRANULOCYTES 0.2 % (0-5); LYMPHOCYTES 15.9 % (15-50); MCH 29.9 pg (26.0-34.0); MCHC 31.7 g/dL (31.0-37.0); MCV 94.4 fL (80.0-100.0); MEAN PLATELET VOLUME 9.5 fL (7.4-10.4); MONOCYTES 10.9 % (2-11); PLATELET COUNT 293 10x3/uL (130-400); RBC 3.21 10x6/uL (4.00-5.40); RDW 14.5 % (11.5-14.5); WBC 10.6 10x3/uL (4.8-10.8)
--- NOTE | 2016-10-17 07:19 | NUR ---
ASSESSMENT COMPLETED. TELEMERTY SHOWS CAF AT 81. 02 AT 2 L/M PER NC. LEFT FA SL. TURN Q 2 HRS. DENIES ANY NEEDS. WILL MONITOR
[2016-10-17 07:26] LABS: CALC OSMOLALITY 284 mosm/kg (275-300); CALCIUM 8.4 mg/dL (8.5-10.1); CARBON DIOXIDE 23.7 mmol/L (21.0-32.0); CHLORIDE - SERUM 107 mmol/L (98-107); CREATININE - SERUM 0.9 mg/dL (0.6-1.3); GLUCOSE 90 mg/dL (74-106); PRO BNP 5291 pg/mL (0-450); SODIUM 141 mmol/L (136-145); TROPONIN-I < 0.017 ng/mL (0.000-0.060); UREA NITROGEN 24 mg/dL (7-18); eGFR NON AFRICAN AMERICAN 62 mL/min (90-120)
--- NOTE | 2016-10-17 07:53 | NUR ---
RESTING QUIETLY EYES CLOSED RESP UNLABORED SKIN W/D NAD NOTED
[2016-10-17 07:59] VITALS: BP 107/43
--- NOTE | 2016-10-17 10:25 | NUR ---
POSITIONED FOR COMFORT. DENIES ANY NEEDS. CALL LIGHT IN REACH WITH SR UP. FAMILY AT BEDSIDE
[2016-10-17 12:40] VITALS: BP 116/58
[2016-10-17 15:40] VITALS: BP 117/51
--- NOTE | 2016-10-17 17:33 | NUR ---
REPOSITIONED FOR COMFORT. PT ATE 25 PERSENT OF HER FOOD. TOLORATED IT WELL. SR UP WITH CALL LIGHT IN REACH. WILL MONITOR
[2016-10-17 20:00] VITALS: BP 134/74
[2016-10-18] VITALS (7 sets, daily range): BP systolic 82–127; BP diastolic 30–69
[2016-10-18 06:16] LABS: BASOPHILS 0.4 % (0-2); EOSINOPHILS 1.7 % (0-7); HEMOGLOBIN 9.4 g/dL (12-16); IMMATURE GRANULOCYTES 0.3 % (0-5); LYMPHOCYTES 13.9 % (15-50); MCH 29.7 pg (26.0-34.0); MCHC 31.3 g/dL (31.0-37.0); MCV 94.9 fL (80.0-100.0); MEAN PLATELET VOLUME 9.5 fL (7.4-10.4); MONOCYTES 6.6 % (2-11); NEUTROPHILS 77.1 % (40-80); PLATELET COUNT 291 10x3/uL (130-400); RBC 3.16 10x6/uL (4.00-5.40); RDW 14.7 % (11.5-14.5)
[2016-10-18 06:33] LABS: ANION GAP 15.3 mmol/L (8-16); CALCIUM 8.1 mg/dL (8.5-10.1); CARBON DIOXIDE 23.4 mmol/L (21.0-32.0); CREATININE - SERUM 0.9 mg/dL (0.6-1.3); POTASSIUM - SERUM 3.7 mmol/L (3.5-5.1)
--- NOTE | 2016-10-18 07:30 | NUR ---
RECEIVED PT IN BED EYES CLOSED RESP UNLABORED SKIN W/D TELEMETRY INTACT CAF RATE 89 NAD NOTED WILL CONTINUE TO MONITOR
--- NOTE | 2016-10-18 08:00 | NUR ---
REFUSES BREAKFAST AT THIS TIME REPOSITIONED FOR COMFORT
--- NOTE | 2016-10-18 10:00 | NUR ---
REPOSITIONED FOR COMFORT TOLERATED WELL
--- NOTE | 2016-10-18 12:20 | NUR ---
PT SITTING IN CHAIR EATING LUNCH TOLERATING WWELL
--- NOTE | 2016-10-18 14:00 | NUR ---
RESTING QUIETLY RESP UNLABORED NAD NOTED
--- NOTE | 2016-10-18 16:00 | NUR ---
REPOSITIONED FOR COMFORT
--- NOTE | 2016-10-18 18:15 | NUR ---
INCONTINENT CARE PROVIDED REPOSITIONED FOR COMFORT PT TOLERATED WELL
--- NOTE | 2016-10-18 19:05 | NUR ---
INITIAL ROUNDS MADE. PT LYING IN BED RESTING WELL WITH EYES CLOSED. AWAKENED EASILY WHEN NAME CALLED. DENIES NEEDS. CALL LIGHT IN REACH. BOX ALARM ATTACHED TO GOWN AND ON. WILL CONT TO MONITOR.
[2016-10-19 05:32] VITALS: BP 107/44
--- NOTE | 2016-10-19 05:54 | NUR ---
RESTING WELL WITH EYES CLOSED, NO DISTRESS NOTED. CALL LIGHT IN REACH. WILL CONT TO MONITOR.
[2016-10-19 08:06] VITALS: BP 106/54
--- NOTE | 2016-10-19 09:57 | NUR ---
Patient Name: DRE MYLES Encounter No: [id number] : 1925 Primary Insurance: MEDICARE A & B Anticipated DC Date: Planned Disposition: [facility] Facility External Planned Provider: [facility], MEDICARE REHAB BED DCP follow-up note: CM FAXED UPDATE TO [facility] OF [facility], . FOR DISCHARGE ON OR AFTER 10-15-16, FAX DISCHARGE INFORMATION TO [facility], . NURSE REPORT TO BE CALLED TO [facility] AT [phone]. [facility] TO ARRANGE VAN TRANSPORT. Ramón Patel, CASE MANAGEMENT
--- NOTE | 2016-10-19 11:00 | NUR ---
ASSISTED UP TO CHAIR BY PT.
[2016-10-19 12:40] VITALS: BP 135/68
[2016-10-19 16:12] VITALS: BP 149/71
--- NOTE | 2016-10-19 19:10 | NUR ---
RECEIVED REPORT, PT IS SLEEPING, 02-2L, IV-L.HAND-NS @KVO, [id number], SCD ARE ON, BED IS LOW, SRX3, CALL LIGHT IN REACH, WILL CONTINUE TO MONITOR
[2016-10-19 20:00] VITALS: BP 114/56
[2016-10-20] VITALS (7 sets, daily range): BP systolic 106–137; BP diastolic 44–65
--- NOTE | 2016-10-20 00:03 | NUR ---
RN SUPPORT SERVICES AT BEDSIDE FOR VS. NEEDS ADDRESSED. CALL LIGHT IN REACH. WILL CONT TO MONITOR.
--- NOTE | 2016-10-20 01:24 | NUR ---
ASSESSMENT COMPLETE, PT SLEEPING ON RIGHT SIDE, BED IS LOW, ALARM IS ON, CALL LIGHT IN REACH, WILL MONITOR
[2016-10-20 05:29] LABS: BASOPHILS 0.5 % (0-2); EOSINOPHILS 5.9 % (0-7); HEMATOCRIT 29.5 % (36.0-48.0); IMMATURE GRANULOCYTES 0.3 % (0-5); LYMPHOCYTES 21.9 % (15-50); MCH 29.2 pg (26.0-34.0); MCHC 30.5 g/dL (31.0-37.0); MCV 95.8 fL (80.0-100.0); MEAN PLATELET VOLUME 9.4 fL (7.4-10.4); MONOCYTES 8.3 % (2-11); NEUTROPHILS 63.1 % (40-80); PLATELET COUNT 316 10x3/uL (130-400); RBC 3.08 10x6/uL (4.00-5.40); RDW 14.7 % (11.5-14.5)
[2016-10-20 06:14] LABS: WBC 7.6 10x3/uL (4.8-10.8)
[2016-10-20 06:18] LABS: CALC OSMOLALITY 293 mosm/kg (275-300); CALCIUM 7.9 mg/dL (8.5-10.1); CARBON DIOXIDE 25.1 mmol/L (21.0-32.0); CHLORIDE - SERUM 112 mmol/L (98-107); CREATININE - SERUM 0.7 mg/dL (0.6-1.3); GLUCOSE 97 mg/dL (74-106); POTASSIUM - SERUM 3.5 mmol/L (3.5-5.1); PRO BNP 9856 pg/mL (0-450); SODIUM 147 mmol/L (136-145); TROPONIN-I < 0.017 ng/mL (0.000-0.060); UREA NITROGEN 18 mg/dL (7-18); eGFR NON AFRICAN AMERICAN 83 mL/min (90-120)
--- NOTE | 2016-10-20 07:49 | NUR ---
AWAKE ORIENTED ONLY TO PLACE. DR HENRY HERE
--- NOTE | 2016-10-20 12:01 | NUR ---
WOUND CARE CONSULT: NOTED REDNESS TO PT'S BOTTOM. IT IS BLANCHABLE. ZINC OXIDE PASTE IS BEING APPLIED. PT REQUIRES TURNING/REPOSITIONING Q2H. WILL MONITOR.
--- NOTE | 2016-10-20 12:29 | NUR ---
Nutrition follow-up: Diet: Regular puree with honey thick liquids per speech; pt aspirates on all other consistencies. PO intake ~25% of meals Labs reviewed Last weight 102# +BM Will continue to provide food choices and honor food preferences within diet modifications. RDN will order Ensure, Magic cups with meals. Following.
--- NOTE | 2016-10-20 13:15 | NUR ---
1200 UP IN CHAIR FOR LUNCH OLINDA WELL. NO DISTRESS.
--- NOTE | 2016-10-20 16:43 | NUR ---
IV RESTARTED IN R FOREARM WITH 20 GA 1 4 IN. ON 1ST ATTEMPT.
--- NOTE | 2016-10-20 19:30 | NUR ---
ASSESSMENT COMPLETE,CONFUSED, RESP UNLAB WITH O2 @ 2L NC IN PLACE. TELEMETRY IN PLACE SHOWING HR CAFIB PER RECORD FILING CLERK, TURN Q 2 HOURS FOR c & C. OLINDA WELL. BOTTOM WITH BUTT PASTE NOTED. RT WRIST IV WITH NS INFUSING W/O DIFF VIA PUMP AT 10 CC/HR NO R/S NOTED AT SITE. HOB UP SR UP X2, C/L IN REACH. CONTINUE TO MONITOR.
--- NOTE | 2016-10-21 00:44 | NUR ---
ON RT SIDE WITH EYES CLOSED, RESP UNLAB WITH NO S/S OF ACUTE DISTRESS NOTED. C/L IN REACH. CONTINUE TO MONITOR.
[2016-10-21 03:55] VITALS: BP 122/50
[2016-10-21 05:43] LABS: BASOPHILS 0.8 % (0-2); EOSINOPHILS 4.4 % (0-7); HEMATOCRIT 30.4 % (36.0-48.0); HEMOGLOBIN 9.4 g/dL (12-16); IMMATURE GRANULOCYTES 0.5 % (0-5); MCH 29.3 pg (26.0-34.0); MCHC 30.9 g/dL (31.0-37.0); MCV 94.7 fL (80.0-100.0); MEAN PLATELET VOLUME 8.9 fL (7.4-10.4); MONOCYTES 10.1 % (2-11); NEUTROPHILS 60.2 % (40-80); PLATELET COUNT 310 10x3/uL (130-400); RBC 3.21 10x6/uL (4.00-5.40); RDW 14.6 % (11.5-14.5)
[2016-10-21 06:22] LABS: ANION GAP 12.3 mmol/L (8-16); CALCIUM 8.1 mg/dL (8.5-10.1); CARBON DIOXIDE 25.7 mmol/L (21.0-32.0); CREATININE - SERUM 0.8 mg/dL (0.6-1.3)
--- NOTE | 2016-10-21 07:43 | NUR ---
SLEEPING AT PRESENT BOX ALARM DR. HENRY HERE.
[2016-10-21 07:54] VITALS: BP 126/67
--- NOTE | 2016-10-21 11:10 | NUR ---
SPEECH PATHOLOGY IN ROOM ASSISTING PT WITH THICKENED CRANBERRY JUICE. PT REPORTS THAT SHE FEELS LIKE SHE IS GOING TO VOMIT AND BEGINS DRY HEAVINING. NO EMESIS PRODUCED. REILLY RN AND LOGAN RN IN ROOM AT THIS TIME.
--- NOTE | 2016-10-21 11:17 | NUR ---
PT CONTINUES TO REPORT FEELING NAUSEATED. 4MG ZOFRAN GIVEN SLOW IVP. RICHARD LUCIANO RN NPC FACULTY REMAINS IN ROOM. NS DISCONTINUED AT THIS TIME AND 0.45% NS WITH 20MEQ KCL HUNG TO INFUSE VIA PUMP AT 75ML/HR PER ORDER. HOB REMAINS AT 75 DEGREES. PT DENIES FURTHER NEEDS AT THIS TIME.
[2016-10-21 12:00] VITALS: BP 128/76
--- NOTE | 2016-10-21 12:09 | NUR ---
THIS AM. CARE HAS BEEN PROVIDED BY STUDENT NURSE. SPEECH RE EVALUATED PATIENT. PATIENT SITTING UP IN CHAIR TO EAT LUNCH.
[2016-10-21 15:45] VITALS: BP 107/50
[2016-10-21 20:00] VITALS: BP 155/78
[2016-10-22] VITALS: BP 139/69
[2016-10-22 04:00] VITALS: BP 123/65
[2016-10-22 06:05] LABS: BASOPHILS 0.4 % (0-2); EOSINOPHILS 1.4 % (0-7); HEMATOCRIT 33.4 % (36.0-48.0); HEMOGLOBIN 10.3 g/dL (12-16); IMMATURE GRANULOCYTES 0.5 % (0-5); LYMPHOCYTES 14.7 % (15-50); MCH 29.3 pg (26.0-34.0); MCHC 30.8 g/dL (31.0-37.0); MCV 94.9 fL (80.0-100.0); MEAN PLATELET VOLUME 9.4 fL (7.4-10.4); MONOCYTES 6.8 % (2-11); NEUTROPHILS 76.2 % (40-80); RBC 3.52 10x6/uL (4.00-5.40); RDW 14.7 % (11.5-14.5)
[2016-10-22 06:08] LABS: PLATELET COUNT 388 10x3/uL (130-400); WBC 11.8 10x3/uL (4.8-10.8)
[2016-10-22 06:33] LABS: ALBUMIN 2.1 g/dL (3.4-5.0); ANION GAP 13.8 mmol/L (8-16); BILIRUBIN - TOTAL 0.4 mg/dL (0.2-1.3); CALCIUM 8.2 mg/dL (8.5-10.1); CARBON DIOXIDE 24.5 mmol/L (21.0-32.0); CREATININE - SERUM 0.8 mg/dL (0.6-1.3); POTASSIUM - SERUM 3.3 mmol/L (3.5-5.1); PROTEIN - SERUM 6.4 g/dL (6.4-8.2); TROPONIN-I 0.025 ng/mL (0.000-0.060)
--- NOTE | 2016-10-22 07:53 | NUR ---
ASSESSMENT COMPLETED. LYING QUIETLY WITH EYES CLOSED. AWAKENS EASILY. TELEMERTY SHOWS CAF AT 95. O2 AT 2 L/M PER NC. IV TO RIGH AC WITH 1/2NS WITH 20MEQ OF KCL AT 75CC/HR. BOX ALARM ON. SR UP WITH CALL LIGHT IN REACH. WILL MONITOR
--- NOTE | 2016-10-22 08:15 | NUR ---
PT IN LEFT TILT POSITION RESTING WITH EYES CLOSED, AROUSES TO VERBAL STIMULATION. 22G PIV IN RIGHT WRIST WITH 0.45 NS WITH 20meq OF KCL INFUSING VIA PUMP AT 75ML/HR. SITE C/D/I. ZOSYN HUNG IVPB PER ORDERS, SEE EMAR. WILL HANG KCL RIDER UPON COMPLETION OF ZOSYN INFUSION. PT REPOSITIONED TO RIGHT TILT HIGH FOWLERS POSITION. PT REPORTS NAUSEA, WILL HOLD PO MEDS UNTIL NAUSEA HAS SUBSIDED.
--- NOTE | 2016-10-22 08:15 | NUR ---
ZOFRAN 4MG GIVEN SIVP.
[2016-10-22 08:22] VITALS: BP 131/67
--- NOTE | 2016-10-22 10:20 | NUR ---
Patient Name: DRE MYLES Encounter No: [id number] : 1925 Primary Insurance: MEDICARE A & B Anticipated DC Date: 10-23-2016 Planned Disposition: [facility] Facility External Planned Provider: [facility], MEDICARE REHAB BED DCP follow-up note: CM RECEIVED ORDER FOR SNF OR POSSIBLE HOSPICE IF PT/FAMILY WANT TO PURSE THE OPTION. CM MET WITH PT IN ROOM AND DISCUSSED DISCHARGE NEEDS. PT REPORTS WANTING TO "GET MOVING" AND WOULD LIKE REHAB AT [facility]. IMPORTANT MESSAGE FROM MEDICARE PROVIDED AND EXPLAINED. CM CALLED PT'S SPOUSE TO DISCUSS DISCHARGE PLAN; CHANDRAKANT MYLES, , THERE WAS NO ANSWER. CM SPOKE TO [facility], , REHAB BED HOLDING FOR ADMISSION, CAN TAKE TODAY OR TOMORROW. CM FAXED UPDATE TO [facility] AT [phone]. CM FAXED UPDATE TO [facility], . FOR DISCHARGE FAX DISCHARGE INFORMATION TO [facility], . NURSE REPORT TO BE CALLED TO [facility] AT [phone]. [facility] TO ARRANGE VAN TRANSPORT. Ramón Patel, CASE MANAGEMENT
[2016-10-22 11:42] VITALS: BP 120/75
--- NOTE | 2016-10-22 12:27 | NUR ---
UP IN BEDSIDE CHAIR. REFUSES HER LUNCH. WILL TRY AGAIN IN A SHORT TIME
--- NOTE | 2016-10-22 15:38 | NUR ---
HOB UP. NO NEEDS VOICED. TELEMERTY SHOWS CAF. SR UP WITH CALL LIGHT IN REACH.BOX ALARM ON
[2016-10-22 16:26] VITALS: BP 98/60
--- NOTE | 2016-10-22 16:46 | NUR ---
Patient Name: DRE MYLES Encounter No: [id number] : 1925 Primary Insurance: MEDICARE A & B Anticipated DC Date: 10-23-2016 Planned Disposition: Care Home Facility External Planned Provider: [facility], MEDICARE REHAB BED DCP follow-up note: CM SPOKE TO PT'S SPOUSE IN ROOM, DISCUSSED DISCHARGE TOMORROW, [facility] ORDER FOR RESIDENTIAL OR HOSPICE. PT'S SPOUSE REPORTS WANTING REHAB FOR PT AT [facility], PT IN AGREEMENT WITH DISCHARGE TOMORROW TO REHAB. IMPORTANT MESSAGE FROM MEDICARE PROVIDED AND EXPLAINED. FOR DISCHARGE FAX DISCHARGE INFORMATION TO [facility], . NURSE REPORT TO BE CALLED TO [facility] AT [phone]. [facility] TO ARRANGE VAN TRANSPORT. Ramón Patel, CASE MANAGEMENT
--- NOTE | 2016-10-22 19:39 | NUR ---
RESUMED CARE OF PT, LYING IN BED WITH EYES CLOSED RESPIRATIONS EVEN AND UNLABORED ON 2LPM VIA NC. 99 CAF WITH PVCS ON TELEMETRY. RIGHT AC INFUSING 1/2 NS WITH 20 OF K @ 75. BOX ALARM ON. NO NEEDS NOTED AT THIS TIME. WILL CONTINUE TO MONITOR. SEE NURSE ASSESSMENT.
[2016-10-22 22:09] VITALS: BP 115/61
[2016-10-23 01:50] VITALS: BP 112/68
--- NOTE | 2016-10-23 04:33 | NUR ---
LARGE BM REMOVED, CLEANED OF INCONTINENT EPISODE. CALL LIGHT IN REACH. RESTING COMFORTABLY.
[2016-10-23 05:22] LABS: BASOPHILS 0.2 % (0-2); EOSINOPHILS 0.5 % (0-7); HEMOGLOBIN 9.8 g/dL (12-16); IMMATURE GRANULOCYTES 0.6 % (0-5); LYMPHOCYTES 12.1 % (15-50); MCH 29.3 pg (26.0-34.0); MCHC 30.6 g/dL (31.0-37.0); MCV 95.5 fL (80.0-100.0); MEAN PLATELET VOLUME 9.4 fL (7.4-10.4); MONOCYTES 7.1 % (2-11); NEUTROPHILS 79.5 % (40-80); PLATELET COUNT 407 10x3/uL (130-400); RBC 3.35 10x6/uL (4.00-5.40); RDW 14.9 % (11.5-14.5)
[2016-10-23 05:31] VITALS: BP 108/66
[2016-10-23 05:35] LABS: WBC 18.9 10x3/uL (4.8-10.8)
[2016-10-23 05:51] LABS: ANION GAP 11.5 mmol/L (8-16); CALCIUM 8.2 mg/dL (8.5-10.1); CARBON DIOXIDE 26.2 mmol/L (21.0-32.0); POTASSIUM - SERUM 3.7 mmol/L (3.5-5.1)
--- NOTE | 2016-10-23 07:30 | NUR ---
PT IN BED EYES CLOSED RESP UNLABORED SKIN W/D NAD NOTED
--- NOTE | 2016-10-23 07:51 | NUR ---
ASSESSMENT COMPLETED. 02 AT 2 L/M PER NC. RIGHT AC IV WITH 1/2NS WITH 20 OF K AT 75CC/HR. PT HAS A BOX ALARM. DR HENRY HERE. ORDERS RECIEVED. CONFUSED AT TIMES
[2016-10-23 09:29] VITALS: BP 107/59
[2016-10-23 13:01] VITALS: BP 110/69
[2016-10-23 15:19] VITALS: BP 120/57
--- NOTE | 2016-10-23 16:09 | NUR ---
Patient Name: DRE MYLES Encounter No: [id number] : 1925 Primary Insurance: MEDICARE A & B Anticipated DC Date: 10-23-2016 Planned Disposition: Snf Facility External Planned Provider: [facility], MEDICARE REHAB BED DCP follow-up note: CM SPOKE TO MIGUELINA AT [facility] WHO INFORMED CM THAT THEY ARE NOT GOING TO BE ABLE TO HOLD REHAB BED FOR MUCH LONGER AND MAY NEED A NEW REFERRAL ONCE PT IS READY FOR DISCHARGE IF IT IS GOING TO BE SEVERAL MORE DAYS. CM FAXED UPDATED CHART NOTES TO [facility] AT [phone]. FOR DISCHARGE FAX DISCHARGE INFORMATION TO [facility], . NURSE REPORT TO BE CALLED TO [facility] AT [phone]. [facility] TO ARRANGE VAN TRANSPORT. Ramón Patel, CASE MANAGEMENT
--- NOTE | 2016-10-23 16:14 | NUR ---
Patient Name: DRE MYLES Encounter No: [id number] : 1925 Primary Insurance: MEDICARE A & B Anticipated DC Date: 10-23-2016 Planned Disposition: [facility] Facility External Planned Provider: [facility], MEDICARE REHAB BED DCP follow-up note: CM SPOKE TO MIGUELINA AT [facility] WHO INFORMED CM THAT THEY ARE NOT GOING TO BE ABLE TO HOLD REHAB BED FOR MUCH LONGER AND MAY NEED A NEW REFERRAL ONCE PT IS READY FOR DISCHARGE IF IT IS GOING TO BE SEVERAL MORE DAYS. CM FAXED UPDATED CHART NOTES TO [facility] AT [phone]. FOR DISCHARGE FAX DISCHARGE INFORMATION TO [facility], . NURSE REPORT TO BE CALLED TO [facility] AT [phone]. [facility] TO ARRANGE VAN TRANSPORT. Ramón Patel, CASE MANAGEMENT
--- NOTE | 2016-10-23 17:44 | NUR ---
LYING QUIETLY. FAMILY AT BEDSIDE. DENIES ANY NEEDS. SR UP WITH CALL LIGHT IN REACH. TELEMERTY SHOWS SR.
[2016-10-23 19:00] VITALS: BP 123/65
[2016-10-24 05:03] LABS: BASOPHILS 0.3 % (0-2); EOSINOPHILS 0.8 % (0-7); HEMATOCRIT 30.6 % (36.0-48.0); HEMOGLOBIN 9.5 g/dL (12-16); IMMATURE GRANULOCYTES 0.8 % (0-5); LYMPHOCYTES 10.1 % (15-50); MCH 29.1 pg (26.0-34.0); MCV 93.9 fL (80.0-100.0); MEAN PLATELET VOLUME 9.4 fL (7.4-10.4); MONOCYTES 7.5 % (2-11); NEUTROPHILS 80.5 % (40-80); PLATELET COUNT 396 10x3/uL (130-400); RBC 3.26 10x6/uL (4.00-5.40); WBC 17.8 10x3/uL (4.8-10.8)
[2016-10-24 05:25] LABS: CALC OSMOLALITY 285 mosm/kg (275-300); CALCIUM 8.5 mg/dL (8.5-10.1); CHLORIDE - SERUM 110 mmol/L (98-107); GLUCOSE 104 mg/dL (74-106); SODIUM 142 mmol/L (136-145); UREA NITROGEN 22 mg/dL (7-18)
[2016-10-24 05:26] LABS: CARBON DIOXIDE 19.6 mmol/L (21.0-32.0); CREATININE - SERUM 0.6 mg/dL (0.6-1.3); eGFR NON AFRICAN AMERICAN > 90 mL/min (90-120)
--- NOTE | 2016-10-24 06:53 | NUR ---
RECEIVED REPORT. ASSUMED CARE OF PATIENT. CALL LIGHT WITHIN REACH. ALERT. RECEIVING NEBULIZER TREATMENT AT THIS TIME. NO DISTRESS. DENIES NEEDS AT THIS TIME.
--- NOTE | 2016-10-24 08:39 | NUR ---
PATIENT REFUSED AM MEAL AT THIS TIME. TOOK ALL AM MEDICATIONS WITHOUT DIFFICULTY. NO DISTRESS. CALL LIGHT WITHIN REACH.
--- NOTE | 2016-10-24 09:57 | NUR ---
ATTEMPTED IN AND OUT CATH TO OBTAIN URINE SPECIMEN AT THIS TIME, PATIENT HAD JUST URINATED AND DEFICATED. WILL ATTEMPT AGAIN IN A COUPLE OF HOURS.
[2016-10-24 10:48] VITALS: BP 130/89
--- NOTE | 2016-10-24 11:36 | NUR ---
PATIENT OOB TO CHAIR AT BEDSIDE. NO DISTRESS.
[2016-10-24 13:22] LABS: APPEARANCE CLEAR (CLEAR); COLOR YELLOW (YELLOW)
[2016-10-24 13:24] LABS: BACTERIA MODERATE /hpf (NONE SEEN); BILIRUBIN NEGATIVE (NEGATIVE); GLUCOSE NEGATIVE (NEGATIVE); HYALINE CAST 0-5 /lpf (NONE SEEN); KETONE NEGATIVE (NEGATIVE); LEUKOCYTE ESTERASE TRACE (NEGATIVE); MUCUS <1+ /lpf (NONE SEEN); NITRITE NEGATIVE (NEGATIVE); PROTEIN NEGATIVE (NEGATIVE); RED CELLS - URINE 0-5 /hpf (0-5); SPECIFIC GRAVITY 1.015 (1.005-1.020); UROBILINOGEN NORMAL (NORMAL)
[2016-10-24 13:59] VITALS: BP 119/55
--- NOTE | 2016-10-24 14:00 | NUR ---
PATIENT PLACED BACK TO BED BY PHYSICAL THERAPY. UA OBTAINED AT THIS TIME AND TAKEN TO LAB. RESTING WITH EYES CLOSED AT THIS TIME. NO DISTRESS.
[2016-10-24 16:51] VITALS: BP 115/74
[2016-10-24 20:00] VITALS: BP 130/64
[2016-10-25] VITALS: BP 110/53
[2016-10-25 06:07] LABS: BASOPHILS 0.4 % (0-2); EOSINOPHILS 1.4 % (0-7); HEMATOCRIT 29.7 % (36.0-48.0); HEMOGLOBIN 9.3 g/dL (12-16); IMMATURE GRANULOCYTES 1.3 % (0-5); LYMPHOCYTES 10.5 % (15-50); MCH 29.3 pg (26.0-34.0); MCHC 31.3 g/dL (31.0-37.0); MCV 93.7 fL (80.0-100.0); MEAN PLATELET VOLUME 9.6 fL (7.4-10.4); MONOCYTES 8.2 % (2-11); NEUTROPHILS 78.2 % (40-80); PLATELET COUNT 388 10x3/uL (130-400); RBC 3.17 10x6/uL (4.00-5.40); RDW 14.9 % (11.5-14.5); WBC 16.6 10x3/uL (4.8-10.8)
[2016-10-25 07:15] LABS: CALC OSMOLALITY 289 mosm/kg (275-300); CALCIUM 7.9 mg/dL (8.5-10.1); CARBON DIOXIDE 23.9 mmol/L (21.0-32.0); CHLORIDE - SERUM 111 mmol/L (98-107); CREATININE - SERUM 0.6 mg/dL (0.6-1.3); GLUCOSE 101 mg/dL (74-106); POTASSIUM - SERUM 3.8 mmol/L (3.5-5.1); PRO BNP 16674 pg/mL (0-450); SODIUM 144 mmol/L (136-145); UREA NITROGEN 20 mg/dL (7-18); eGFR NON AFRICAN AMERICAN > 90 mL/min (90-120)
[2016-10-25 08:56] VITALS: BP 138/68
--- NOTE | 2016-10-25 09:33 | NUR ---
TELEMETRY UCAF. HR 105. RESP UL ON 02 2L NC. IV PATENT. UP TO CHAIR WITH PT ASSIST. WILL CONT. PLAN OF CARE.
[2016-10-25 12:05] VITALS: BP 116/65
[2016-10-25 15:52] VITALS: BP 116/72
--- NOTE | 2016-10-25 20:09 | NUR ---
PT ALERT/DISORIENTED TO PLACE/TIME/SITUATION. BREATHING TREATMENT IN PROGRESS AND PT IS PULLING IT OFF. O2 @2L/NC. RFA WITH NS +20KCL @ 50ML/HR. SCDS IN PLACE. PT IS CURRENTLY CLEAN AND DRY, BUT HAS EPISODES OF INCONTINENCE SO IS CHECKED EVERY 2 HOURS AND NEEDED. CURRENTLY. SEE SHIF ASSESSMENT. CPOC.
[2016-10-25 20:23] VITALS: BP 110/64
--- NOTE | 2016-10-25 23:09 | NUR ---
HS MEDS GIVEN. PT RESTING WITH NO DISTRESS.
[2016-10-26 00:52] VITALS: BP 121/75
[2016-10-26 04:38] VITALS: BP 120/70
--- NOTE | 2016-10-26 07:15 | NUR ---
RESTING WITH EYES CLOSED RESP UNLABORED
--- NOTE | 2016-10-26 08:28 | NUR ---
ASSESSMENT COMPLETED. TELEMERTY SHOWS CAF 88. O2 AT 2 L/M PER NC. SCDS NOT ON. BOX ALARM ON.PT IS A DNR. IV TO RIGHT FA WITH NS WITH KCL 2O AT 50CC HR. SR UP WITH CALL LIGHT IN REAC. WILL MONITOR
--- NOTE | 2016-10-26 09:10 | NUR ---
Patient Name: DRE MYLES Encounter No: [id number] : 1925 Primary Insurance: MEDICARE A & B Anticipated DC Date: 10-23-2016 Planned Disposition: Custodial Facility External Planned Provider: [facility], MEDICARE REHAB BED DCP follow-up note: CM RECEIVED ORDER, FAXED UPDATED CHART NOTES TO [facility] AT [phone]. CM WAITING CALL BACK FROM [facility] ADMISSIONS NURSE [facility] WITH ADMISSION DETERMINATION. Ramón Patel, CASE MANAGEMENT
[2016-10-26 10:10] VITALS: BP 119/69
--- NOTE | 2016-10-26 12:04 | NUR ---
UP IN BEDSIDE CHAIR. NO NEEDS NOTED. CALL LIGHT IN REACH WILL MONITOR
[2016-10-26 12:54] VITALS: BP 114/69
--- NOTE | 2016-10-26 13:27 | NUR ---
Patient Name: DRE MYLES Encounter No: [id number] : 1925 Primary Insurance: MEDICARE A & B Anticipated DC Date: 10-26-2016 Planned Disposition: Long Term Facility External Planned Provider: [facility], MEDICARE REHAB BED DCP follow-up note: CM SPOKE TO MIGUELINA AT [facility] WHO INFORMED THAT THEY WILL ACCEPT PT TODAY, WILL [facility] FOR [address] HENRY VIA PHONE. CM TO FAX DC INFORMATION TO [facility] AT [phone]. CM NOTIFIED PT'S SPOUSE IN ROOM WHO IS IN AGREEMENT WITH DISCHARGE TO REHAB AT [facility]. FOR DISCHARGE NURSE REPORT TO BE CALLED TO [facility] AT [phone]. [facility] TO ARRANGE VAN TRANSPORT FOR SKIVER MACHINE OPERATOR AT 1500 HOURS TODAY. Ramón Patel, CASE MANAGEMENT
[2016-10-26] MEDS ORDERED: BETAPACE 80 MG80 MG PO (13:44)
[2016-10-26] MEDS ORDERED: XOPENEX 0.0.63 MG/3 UPD (13:44)
[2016-10-26] MEDS ORDERED: ZOLOFT50 MG PO (13:56)
--- NOTE | 2016-10-26 14:36 | NUR ---
Patient Name: DRE MYLES Encounter No: [id number] : 1925 Primary Insurance: MEDICARE A & B Anticipated DC Date: 10-26-2016 Planned Disposition: Care Home Facility External Planned Provider: [facility], MEDICARE REHAB BED DCP follow-up note: BRETT FAXED DC INFORMATION TO [facility] AT [phone]. FOR DISCHARGE NURSE REPORT TO BE CALLED TO [facility] AT [phone]. [facility] TO ARRANGE VAN TRANSPORT FOR MYSQL DEVELOPER AT 1500 HOURS TODAY. Ramón Patel, CASE MANAGEMENT
--- NOTE | 2016-10-26 15:31 | NUR ---
PT DISCHARGED. IV REMOVED WITH TIP INTACT. REPORT CALLED TO YULISSA AT [facility]. TO NACHO IN WHEELCHAIR WITH 02 IN USE
== END 2016-10-26 15:41 | DRG 308 ==
LOC: D.ER 13:55 → D.M2 17:42
PROVIDERS: Emergency Medicine; ADMIT Family Medicine
DX: I48.2 Chronic atrial fibrillation (principal); E43 Unspecified severe protein-calorie malnutrition; J69.0 Pneumonitis due to inhalation of food and vomit; N39.0 Urinary tract infection, site not specified; Z68.1 Body mass index [BMI] 19.9 or less, adult; I25.10 Atherosclerotic heart disease of native coronary artery without angina pectoris; E86.0 Dehydration

== ENCOUNTER 2016-10-28 09:54 | Inpatient (IN) | payer MEDICARE, OTHER ==
[~2016-10-28] VITALS: Ht 154.9 cm; Wt 62.4 kg
--- NOTE | ~2016-10-28 | OP ---
PATIENT NAME: DRE MYLES MEDICAL RECORD: [id number] :[birth year] LOCATION:[facility] [id number] ADMISSION DATE:10/28/16 SURGEON: HOLLI WALKER MD DATE OF OPERATION: 11/05/2016 PREOPERATIVE DIAGNOSES: 1. Dysphagia. 2. Transient ischemic attack. 3. Coronary artery disease. 4. Malnutrition. 5. Hypertension. 6. Atrial fibrillation. 7. Urinary tract infection. POSTOPERATIVE DIAGNOSES: 1. Dysphagia. 2. Transient ischemic attack. 3. Coronary artery disease. 4. Malnutrition. 5. Hypertension. 6. Atrial fibrillation. 7. Urinary tract infection. PROCEDURE: PEG tube placement. SURGEON: Holli Walker MD REPORT OF PROCEDURE: The patient's abdomen was prepped and draped in sterile fashion. An Olympus endoscope was advanced through the mouth and esophagus into the stomach. We found the area on the antrum of the stomach to house our PEG tube. A total of 5 cc of 1% lidocaine was infused into the subcutaneous tissues. A skin incision was then made with an 11 blade and an Angiocath was advanced through the abdominal wall into the lumen of the stomach. A guidewire was advanced through the Angiocath and this was grasped with an Endoloop. This wire was pulled through the mouth and esophagus. It was affixed to the PEG tube. The wire and PEG tube were pulled through the mouth and esophagus and out through the abdominal wall until resting in good position at 2 cm at the skin. We reinspected and saw no sign of any active bleeding. COMPLICATIONS: None. CONDITION: Stable. ANESTHESIA: TIVA and local. BLOOD LOSS: Minimal. TRANSINT:[id number] Voice Confirmation ID: [id number] DOCUMENT ID: [id number] OPERATIVE REPORT [id number] SHARDRE HOLLI WALKER MD CC: [id number] DICTATION DATE: 11/05/16 1607 RUG UNDERLAY MACHINE OPERATOR: 11/06/16 0141 ADM IN [facility] [address] [place] [address]
[~2016-10-28 09:54] MED LIST changes: +BETAPACE 80 MG80 MG PO; +XOPENEX 0.0.63 MG/3 UPD; +ZOLOFT50 MG PO
[2016-10-28 10:26] LABS: APPEARANCE CLOUDY (CLEAR); BILIRUBIN NEGATIVE (NEGATIVE); COLOR YELLOW (YELLOW); GLUCOSE NEGATIVE (NEGATIVE); KETONE SMALL mg/dL (NEGATIVE); LEUKOCYTE ESTERASE 1+ (NEGATIVE); NITRITE NEGATIVE (NEGATIVE); PROTEIN 1+ mg/dL (NEGATIVE); UROBILINOGEN NORMAL (NORMAL)
[2016-10-28 10:28] LABS: BACTERIA MODERATE /hpf (NONE SEEN); EPITHELIAL CELLS 0-5 /hpf (0-5); HYALINE CAST 0-5 /lpf (NONE SEEN); MUCUS <1+ /lpf (NONE SEEN); RED CELLS - URINE 0-5 /hpf (0-5)
[2016-10-28 10:31] LABS: UDS - AMPHET NEGATIVE QUAL (NEGATIVE); UDS - BARB NEGATIVE QUAL (NEGATIVE); UDS - BENZO POSITIVE QUAL (NEGATIVE); UDS - COCAINE NEGATIVE QUAL (NEGATIVE); UDS - METH NEGATIVE QUAL (NEGATIVE); UDS - OPIATE POSITIVE QUAL (NEGATIVE); UDS - PCP NEGATIVE QUAL (NEGATIVE); UDS - THC NEGATIVE QUAL (NEGATIVE)
[2016-10-28 10:48] LABS: BASOPHILS 0.5 % (0-2); EOSINOPHILS 0.5 % (0-7); HEMATOCRIT 29.5 % (36.0-48.0); HEMOGLOBIN 9.1 g/dL (12-16); IMMATURE GRANULOCYTES 1.6 % (0-5); LYMPHOCYTES 11.9 % (15-50); MCH 29.1 pg (26.0-34.0); MCHC 30.8 g/dL (31.0-37.0); MCV 94.2 fL (80.0-100.0); MEAN PLATELET VOLUME 9.3 fL (7.4-10.4); MONOCYTES 6.1 % (2-11); NEUTROPHILS 79.4 % (40-80); PLATELET COUNT 388 10x3/uL (130-400); RBC 3.13 10x6/uL (4.00-5.40); RDW 15.4 % (11.5-14.5); WBC 17.1 10x3/uL (4.8-10.8)
[2016-10-28 11:18] LABS: ALBUMIN 1.9 g/dL (3.4-5.0); BILIRUBIN - TOTAL 0.26 mg/dL (0.2-1.3); CALCIUM 8.5 mg/dL (8.5-10.1); CARBON DIOXIDE 26.2 mmol/L (21.0-32.0); CREATININE - SERUM 1.3 mg/dL (0.6-1.3); MAGNESIUM - SERUM 2.4 mg/dL (1.8-2.4); POTASSIUM - SERUM 4.2 mmol/L (3.5-5.1); PROTEIN - SERUM 6.4 g/dL (6.4-8.2); TROPONIN-I 0.028 ng/mL (0.000-0.060)
--- NOTE | 2016-10-28 14:10 | NUR ---
RECEIVED TO ROOM 2214 FROM ER VIA [facility]. TRANSFERRED TO BED PER CHARGE NURSE AND CNAs. CALL LIGHT IN REACH. WILL CONTINUE WITH PLAN OF CARE.
--- NOTE | 2016-10-28 14:44 | NUR ---
NS INITIATED @ 75 CC/HR. ROCEPHIN IVPB. CHARGE NURSE IN ROOM TO ASSESS PATIENT. BED ALARM ON.
[2016-10-28 15:35] VITALS: BP 109/64
[2016-10-28 15:50] VITALS: BMI 19.5
--- NOTE | 2016-10-28 15:55 | NUR ---
CHARGE NURSE SPOKE WITH FAMILY THAT WAS HERE IN ROOM.
--- NOTE | 2016-10-28 17:08 | NUR ---
PROTONIX IVP PER ORDER. CALL LIGHT IN REACH.
--- NOTE | 2016-10-28 18:23 | NUR ---
NO CHANGES IN INITIAL ASSESSMENT. CALL LIGHT IN REACH. BED ALARM ON. WILL CONTINUE WITH PLAN OF CARE.
--- NOTE | 2016-10-28 19:00 | NUR ---
PATIENT SLEEPING ON LEFT SIDE. HOB 0 DEGREES. RR EVEN AND UNLABORED. 0 S/S OF DISTRESS. AROUSES TO DEEP STIMULI AND INCONSISTENTLY FOLLOWS SIMPLE COMMANDS, BUT NO VERBAL RESPONSE, ONLY MOANS. IV TO RIGHT WRIST PATENT WITH NO REDNESS OR SWELLING. O2 @ 2L VIA NC. PHAM SECURED WITH STATLOCK AND DRAINING TO GRAVITY. MEPILEX TO COCCYX CDI. DUODERM TO LLE. B/A ON. SRX2. BED LOW. DOOR OPEN.
[2016-10-28 20:00] VITALS: BP 120/72
--- NOTE | 2016-10-28 21:00 | NUR ---
PATIENT TURNED TO BACK. NIGHTTIME MED HELD BECAUSE PATIENT TOO LETHARGIC TO SWALLOW.
--- NOTE | 2016-10-28 23:00 | NUR ---
TURNED PATIENT TO RIGHT SIDE.
[2016-10-29] VITALS: BP 96/65
--- NOTE | 2016-10-29 01:00 | NUR ---
BATH GIVEN. PHAM CARE COMPLETE. LINENS AND GOWN CHANGED. REPOSITIONED TO BACK.
[2016-10-29 04:00] VITALS: BP 116/74
[2016-10-29 05:29] LABS: BASOPHILS 0.1 % (0-2); EOSINOPHILS 0 % (0-7); HEMATOCRIT 30.3 % (36.0-48.0); HEMOGLOBIN 9.5 g/dL (12-16); IMMATURE GRANULOCYTES 2.1 % (0-5); LYMPHOCYTES 8.7 % (15-50); MCH 29.8 pg (26.0-34.0); MCHC 31.4 g/dL (31.0-37.0); MEAN PLATELET VOLUME 9.3 fL (7.4-10.4); MONOCYTES 3.3 % (2-11); NEUTROPHILS 85.8 % (40-80); PLATELET COUNT 401 10x3/uL (130-400); RBC 3.19 10x6/uL (4.00-5.40); RDW 15.3 % (11.5-14.5); WBC 15.7 10x3/uL (4.8-10.8)
[2016-10-29 06:15] LABS: ALBUMIN 1.7 g/dL (3.4-5.0); ANION GAP 14.4 mmol/L (8-16); BILIRUBIN - TOTAL 0.21 mg/dL (0.2-1.3); CALCIUM 8.2 mg/dL (8.5-10.1); CARBON DIOXIDE 24.2 mmol/L (21.0-32.0); CREATININE - SERUM 1.1 mg/dL (0.6-1.3); POTASSIUM - SERUM 4.6 mmol/L (3.5-5.1); PROTEIN - SERUM 5.9 g/dL (6.4-8.2)
--- NOTE | 2016-10-29 06:15 | NUR ---
REPOSITIONED PATIENT TO RIGHT SIDE. ASSESSMENT UNCHANGED THROUGHOUT SHIFT.
--- NOTE | 2016-10-29 07:35 | NUR ---
SLEEPING, AROUSES TO VOICE, AIR MATRESS ORDERED, WILL CONTINUE TO MONITOR
[2016-10-29 08:21] VITALS: BP 125/78
--- NOTE | 2016-10-29 10:00 | NUR ---
PATIENT IN LEFT LATERAL POSITION RESTING WITH EYES CLOSED. RESPIRATIONS EVEN AND UNLABORED. SIDE RAILS UP X2. BED IN LOW POSITION. CALL LIGHT IN REACH. PHYSICIAN AND PRIMARY NURSE CHRISTOPHER QUIÑONEZ AT BEDSIDE.
--- NOTE | 2016-10-29 10:48 | NUR ---
Patient Name: DRE MYLES Admission Status: ER Accout number: [id number] Admission Date: 10-28-2016 : 1927 Admission Diagnosis: Attending: RENÉ Current LOS: 1 Anticipated DC Date: 11-03-2016 Planned Disposition: [facility] Facility Primary Insurance: MEDICARE A & B Discharge Planning Comments: CM MET CALLED PATIENTS SPOUSE (CHANDRAKANT) REGARDING D/C NEEDS AND PLANS. PATIENT CAME FROM [facility] SKILLED BED AND WILL RETURN THERE AT DISCHARGE. PATIENTS SPOUSE SAID THEY HAVE A WALKER AND SHOWER CHAIR AT HOME. PATIENT HAS NO STEPS TO ENTER HOME AND HAS A CHAIR LIFT IN THE HOME GOING UPSTAIRS. PATIENTS PCP IS DR. HENRY AND PHARMACY IS [facility]. CM WILL CONTINUE TO FOLLOW PATIENT WITH D/C NEEDS AND PLANS. PCP DR. HENRY [facility]- [phone] CHANDRAKANT (SPOUSE) [phone] Monitor Tech: Nishi Zavala Is the patient Alert and Oriented? No 0 * How many steps to enter\exit or inside your home? 0 0 * PCP ELAINE 0 * Pharmacy [facility] 0 * Preadmission Environment [facility] Facility 0 * [facility] * ADLs Independent 0 * Other Equipment [facility] HAS NEEDED EQUIPMENT HAS WALKER, AND SHOWER CHAIR AT HOME 0 * List name and contact numbers for known caregivers / representatives who currently or will assist patient after discharge: JACOB LLAMAS (DAUGHTER) [phone] * Community resources currently utilized None 0 * Additional services required to return to the preadmission environment? Yes 0 * Can the patient safely return to the preadmission environment? Yes 0 * Has this patient been hospitalized within the prior 30 days at any hospital? Yes 0 Grand Total: 0
[2016-10-29 12:46] VITALS: BP 137/82
[2016-10-29 14:01] VITALS: Ht 154.9 cm; Wt 62.4 kg
[2016-10-29 16:47] VITALS: BP 101/66
[2016-10-29 20:00] VITALS: BP 105/61
[2016-10-30] VITALS: BP 111/74
--- NOTE | 2016-10-30 02:52 | NUR ---
PT LETHARGIC. WAKES EASILY. PT ORIENTED. SPEECH CLEAR. TURNING PT EVERY 2 HOURS. PT C/O GENERALIZED PAIN BUT REFUSED PAIN MEDICINE. PT TOLERATED HONEY THICK LIQUIDS AND PILLS WHOLE ONE AT TIME IN APPLE SAUCE. NO OTHER NEEDS. WILL CONTINUE TO MONITOR.
[2016-10-30 04:00] VITALS: BP 119/76
[2016-10-30 06:38] LABS: BASOPHILS 0.1 % (0-2); EOSINOPHILS 0 % (0-7); HEMATOCRIT 31.4 % (36.0-48.0); HEMOGLOBIN 9.7 g/dL (12-16); IMMATURE GRANULOCYTES 2.3 % (0-5); LYMPHOCYTES 11.4 % (15-50); MCHC 30.9 g/dL (31.0-37.0); MCV 93.7 fL (80.0-100.0); MEAN PLATELET VOLUME 9.5 fL (7.4-10.4); MONOCYTES 5.4 % (2-11); NEUTROPHILS 80.8 % (40-80); PLATELET COUNT 459 10x3/uL (130-400); RBC 3.35 10x6/uL (4.00-5.40); RDW 15.6 % (11.5-14.5); WBC 14.7 10x3/uL (4.8-10.8)
[2016-10-30 07:05] LABS: ALBUMIN 1.8 g/dL (3.4-5.0); BILIRUBIN - TOTAL 0.18 mg/dL (0.2-1.3); CALCIUM 8.1 mg/dL (8.5-10.1); CARBON DIOXIDE 23.7 mmol/L (21.0-32.0); PROTEIN - SERUM 5.9 g/dL (6.4-8.2)
[2016-10-30 07:08] LABS: ANION GAP 14.2 mmol/L (8-16); POTASSIUM - SERUM 3.9 mmol/L (3.5-5.1)
--- NOTE | 2016-10-30 07:35 | NUR ---
MORE ALERT THIS MORNING, NO CONFUSION AT THIS TIME, BED LOWEST POSITION, CALL LIGHT IN REACH, ASSESSMENT COMPLETE, SOME EDEMA TO LOWER EXTREMETIES, WILL CONTINUE TO MONITIOR
--- NOTE | 2016-10-30 08:00 | NUR ---
PATIENT IN RIGHT LATERAL POSITION RESTING QUIETLY. RESPIRATIONS EVEN AND UNLABORED. SIDE RAILS UP X2. BED IN LOW POSITION. CALL LIGHT IN REACH.
[2016-10-30 08:05] VITALS: BP 120/70
[2016-10-30 11:51] VITALS: BP 134/78
[2016-10-30 15:48] VITALS: BP 114/72
[2016-10-30 16:10] LABS: ALBUMIN 1.9 g/dL (3.4-5.0); ANION GAP 11.4 mmol/L (8-16); BILIRUBIN - TOTAL 0.16 mg/dL (0.2-1.3); CALCIUM 8.1 mg/dL (8.5-10.1); CARBON DIOXIDE 26.8 mmol/L (21.0-32.0); POTASSIUM - SERUM 4.2 mmol/L (3.5-5.1); PROTEIN - SERUM 5.5 g/dL (6.4-8.2)
[2016-10-30 20:00] VITALS: BP 156/66
--- NOTE | 2016-10-30 20:28 | NUR ---
REC'D.IN BED ON RT. SIDE OPENS EYES WHEN NAME CALLED OTHERWISE REMAINS CONFUSED ON 1ST STEP OVERLAY.PHAM PATENT AND DRAINING CLOUDY CONCENTRATED URINE.WILL CONTINUE TO MONITOR FOR ANY CHGES. AND FOLLOW CURRENT PLAN OF CARE.
--- NOTE | 2016-10-30 22:58 | NUR ---
CHRISTOPHER WHEATLEY AT BEDSIDE. PATIENT RESTING WITH EYES CLOSED AND NO VISIBLE SIGNS OF DISTRESS. BED IN LOWEST POSITION AND CALL LIGHT WITHIN REACH.
[2016-10-31] VITALS: BP 127/66
[2016-10-31 04:00] VITALS: BP 136/74
[2016-10-31 05:14] LABS: BASOPHILS 0.1 % (0-2); EOSINOPHILS 0.2 % (0-7); HEMATOCRIT 32.6 % (36.0-48.0); IMMATURE GRANULOCYTES 3.8 % (0-5); LYMPHOCYTES 16.3 % (15-50); MCH 29.3 pg (26.0-34.0); MCHC 30.7 g/dL (31.0-37.0); MCV 95.6 fL (80.0-100.0); MEAN PLATELET VOLUME 9.5 fL (7.4-10.4); MONOCYTES 5.9 % (2-11); NEUTROPHILS 73.7 % (40-80); PLATELET COUNT 460 10x3/uL (130-400); RBC 3.41 10x6/uL (4.00-5.40); RDW 15.7 % (11.5-14.5)
[2016-10-31 05:37] LABS: ALBUMIN 1.8 g/dL (3.4-5.0); ANION GAP 12.9 mmol/L (8-16); BILIRUBIN - TOTAL 0.2 mg/dL (0.2-1.3); CARBON DIOXIDE 24.7 mmol/L (21.0-32.0); POTASSIUM - SERUM 3.6 mmol/L (3.5-5.1); PROTEIN - SERUM 5.6 g/dL (6.4-8.2)
--- NOTE | 2016-10-31 07:35 | NUR ---
SLEEPING, BREATHING EVEN UNLABORED, NO DISTRESS NOTED, RUNNING 72 SR PAC, BED LOWEST POSITION, CALL LIGHT IN REACH, WILL CONTINUE TO MONITOR
[2016-10-31 09:57] VITALS: BP 137/76
[2016-10-31 11:56] VITALS: BP 132/70
[2016-10-31 16:32] VITALS: BP 122/69
--- NOTE | 2016-10-31 19:48 | NUR ---
REC'D. IN BED. LYING ON LEFT SIDE. BED ARMED.EYES CLOSED RESP. DEEP AND EVEN.PHAM PATENT AND DRAINING DK. SL. CONCENTRATED URINE.WILL CONTINUE TO MONITOR FOR ANY CHGES. AND FOLLOW CURRENT PLAN OF CARE.
[2016-10-31 20:00] VITALS: BP 133/73
[2016-11-01 04:00] VITALS: BP 128/62
[2016-11-01 04:53] LABS: BASOPHILS 0.2 % (0-2); EOSINOPHILS 0.9 % (0-7); HEMOGLOBIN 9.4 g/dL (12-16); IMMATURE GRANULOCYTES 2.3 % (0-5); LYMPHOCYTES 16.4 % (15-50); MCH 28.8 pg (26.0-34.0); MCHC 30.3 g/dL (31.0-37.0); MCV 95.1 fL (80.0-100.0); MEAN PLATELET VOLUME 9.2 fL (7.4-10.4); MONOCYTES 6.2 % (2-11); PLATELET COUNT 373 10x3/uL (130-400); RBC 3.26 10x6/uL (4.00-5.40); RDW 15.4 % (11.5-14.5); WBC 11.5 10x3/uL (4.8-10.8)
[2016-11-01 05:14] LABS: ALBUMIN 1.8 g/dL (3.4-5.0); BILIRUBIN - TOTAL 0.17 mg/dL (0.2-1.3); CALCIUM 7.9 mg/dL (8.5-10.1); CARBON DIOXIDE 25.9 mmol/L (21.0-32.0); CREATININE - SERUM 0.8 mg/dL (0.6-1.3); POTASSIUM - SERUM 3.3 mmol/L (3.5-5.1); PROTEIN - SERUM 5.5 g/dL (6.4-8.2)
[2016-11-01 05:16] LABS: ANION GAP 10.4 mmol/L (8-16)
[2016-11-01 07:00] VITALS: BP 122/69
--- NOTE | 2016-11-01 10:00 | NUR ---
CRUSHED MEDS, EXCLUDING OSCAL AND ADMINISTERED IN PUDDING. WAITED TO DO OSCAL DUE TO IT HAVING A SHELL AROUND IT THAT IS HARD TO GET IN VERY SMALL PIECES, DID NOT WANT PATIENT TO REFUSE BEFORE TAKING MOST IMPORTANT MEDICATIONS. PATIENT TOOK MEDICATION. THEN CRUSHED OSCAL AND MIXED IN A MEDICINE CUP WITH MEGACE AND PUDDING. TRIED TO GIVE IT TO PATIENT, PATIENT STATED "NO, THAT IS ENOUGH. YOU ARE GOING TO MAKE ME SICK." EXPLAINED TO PATIENT IT IS HER MEDICATION, SHE STATED "NO MORE." AND SHUT HER MOUTH. WASTED OSCAL AND MEGACE.
--- NOTE | 2016-11-01 10:30 | NUR ---
PATIENT HAD INCONTINENT LIQUID BOWEL MOVEMENT. WITH ASSISTANCE, CHANGED LINENS, CLEANED PATIENT UP. ASSESSMENT COMPLETED. MEASURED ALL PRESSURE ULCERS. CHANGED MEPILEX TO COCCYX AND APPLIED MEPILEX TO MID BACK ON SPINAL AUGUSTINE PROMINENCE STAGE 2 PRESSURE ULCER. PHAM CATHETER CARE COMPLETED AT THIS TIME. TURNED PATIENT TO HER RIGHT SIDE, POSITIONED WITH 2 PILLOWS BEHIND HER BACK AND BUTTOM TO KEEP PRESSURE OFF OF ALL PRESSURE ULCERS. PLACED A PINK PAD BETWEEN LEGS TO KEEP ANKLES FROM RUBBING. BED ALARM ON. BED IN LOWEST POSITION, CALL LIGHT IN REACH. BED RAILS UP X'S 2. PATIENT IS LETHARGIC, DISORIENTED TO PLACE, TIME AND SITUATION, ATTEMPTED TO REORIENT PATIENT, UNSUCCESSFUL.
--- NOTE | 2016-11-01 11:20 | NUR ---
PATIENT HAD INCONTINENT BM, SARAH, NURSES AID CLEANED UP PATIENT AND TURNED HER TO LEFT SIDE.
[2016-11-01 12:32] VITALS: BP 110/66
[2016-11-01 14:57] VITALS: BP 114/67
--- NOTE | 2016-11-01 17:50 | NUR ---
TRIED TO FEED PATIENT DINNER, PATIENT STATED "I CANNOT EAT ANYMORE." PATIENT JUST FINISHED SPEECH THERAPY EVALUATION. GAVE PATIENT CHOCOLATE ENSURE, PATIENT ONLY DRANK 2 DRINKS THEN REFUSED TO DRINK ANYMORE.
[2016-11-01 20:00] VITALS: BP 128/71
--- NOTE | 2016-11-01 22:14 | NUR ---
ASSISTED CHRISTOPHER FERRERA REPOSITIONING PATIENT IN BED. PATIENT IS RESTING IN BED WITH NO VISIBLE SIGNS OF SIGNS OF DISTRESS. BED IN LOWEST POSITION AND CALL LIGHT WITHIN REACH. ENCOURAGED THE PATIENT TO CALL IF SHE HAS NEEDS.
[2016-11-02] VITALS: BP 122/68
[2016-11-02 04:00] VITALS: BP 162/71
[2016-11-02 06:16] LABS: BASOPHILS 0.3 % (0-2); EOSINOPHILS 2.9 % (0-7); HEMATOCRIT 29.4 % (36.0-48.0); HEMOGLOBIN 9.1 g/dL (12-16); IMMATURE GRANULOCYTES 4.7 % (0-5); LYMPHOCYTES 20.1 % (15-50); MCH 29.7 pg (26.0-34.0); MCV 96.1 fL (80.0-100.0); MEAN PLATELET VOLUME 9.4 fL (7.4-10.4); MONOCYTES 4.1 % (2-11); NEUTROPHILS 67.9 % (40-80); RBC 3.06 10x6/uL (4.00-5.40); RDW 15.8 % (11.5-14.5)
[2016-11-02 06:24] LABS: PLATELET COUNT 287 10x3/uL (130-400); WBC 15.4 10x3/uL (4.8-10.8)
[2016-11-02 06:57] LABS: ALBUMIN 1.7 g/dL (3.4-5.0); ANION GAP 15.5 mmol/L (8-16); BILIRUBIN - TOTAL 0.2 mg/dL (0.2-1.3); CALCIUM 7.5 mg/dL (8.5-10.1); CARBON DIOXIDE 22.6 mmol/L (21.0-32.0); CREATININE - SERUM 0.8 mg/dL (0.6-1.3); PROTEIN - SERUM 4.8 g/dL (6.4-8.2)
[2016-11-02 07:02] LABS: POTASSIUM - SERUM 4.1 mmol/L (3.5-5.1)
--- NOTE | 2016-11-02 07:15 | NUR ---
PATIENT IS RESTING QUIETLY WITH EYES CLOSED. NO SIGNS OF DISTRESS NOTED. PATIENT IS LAYING ON HER RIGHT SIDE. POSITIONED WITH PILLOWS. OXYGEN VIA NASAL CANNULA AT 2L/MIN. BED IN LOWEST POSITION, CALL LIGHT IN REACH. BED RAILS UP X'S 2.
[2016-11-02 08:23] VITALS: BP 118/67
--- NOTE | 2016-11-02 08:49 | NUR ---
TAO, SCROLL ASSEMBLER CALLED AND SAID THE PATIENT HAD 13 RUNS OF V-TACH. PATIENT ASLEEP. WOKE PATIENT UP. PATIENT AROUSED, VERY LETHARGIC. PATIENT OPENED HER EYES AND SAID "UH HUH." PAGED .
--- NOTE | 2016-11-02 09:55 | NUR ---
IV TO RIGHT HAND/WRIST LEAKING. D/C WITH CATH INTACT. TURNED PATIENT TO HER LEFT SIDE WITH ASSIST FROM ARCADE ATTENDANT. STARTED IV, 20G TO LEFT WRIST, X'S 1 ATTEMPT.
--- NOTE | 2016-11-02 10:00 | NUR ---
PATIENT VERY LETHARGIC AND DROWSY. SAYS FEW WORDS, AT TIMES WILL ANSWER SIMPLE QUESTIONS WITH 1 WORD ANSWERS. PATIENT REFUSED TO EAT BREAKFAST. REFUSING TO TAKE A DRINK. NOT ABLE TO GIVE PO MEDS.
--- NOTE | 2016-11-02 13:11 | NUR ---
NUTRITION MONITORING & EVAL CHART REVIEWED, PT VISIT. BREAKFAST HOSTESS ATTEMPTING TO FEED LUNCH. CONTINUED POOR PO INTAKE. WILL CONTINUE TO PROVIDE DIET, MONITOR PT PROGRESS. RD FOLLOWING
[2016-11-02 13:35] VITALS: BP 122/76
--- NOTE | 2016-11-02 16:14 | NUR ---
CM REASSESSMENT NOTE: CM SPOKE WITH DAUGHTER REGARDING D/C PLANS. DAUGHTER WOULD LIKE TO SPEAK WITH DISASTER DIRECTOR OR PHYSICIAN TOMORROW REGARDING POSSIBLE TUBE FEEDING. CM WILL CONTINUE TO FOLLOW PATIENT WITH D/C NEEDS AND PLANS.
[2016-11-02 16:17] VITALS: BP 120/74
--- NOTE | 2016-11-02 19:00 | NUR ---
PATIENT SLEEPING ON LEFT SIDE. HOB 10 DEGREES. RR EVEN AND UNLABORED. O2 @ 2L VIA NC. 0 S/S DISTRESS. DENIES PAIN. PHAM SECURED WITH STATLOCK AND DRAINING TO GRAVITY. TELEMETRY ON. /A ON. SRX3. BED LOW. DOOR OPEN.
[2016-11-02 20:00] VITALS: BP 117/70
--- NOTE | 2016-11-02 20:41 | NUR ---
PAGED ALY MCKEON TO NOTIFY HER OF ABGS AND TELEMETRY RYTHYM (PER ALY'S REQUEST).
--- NOTE | 2016-11-02 21:00 | NUR ---
NIGHTTIME MEDS HELD BECAUSE PATIENT WILL NO SWALLOW. REPOSITIONED TO BACK.
--- NOTE | 2016-11-02 23:00 | NUR ---
PATIENT TOOK SEVERAL SIPS OF THICKENED WATER. REPOSITIONED TO RIGHT SIDE.
[2016-11-03 04:00] VITALS: BP 102/62
--- NOTE | 2016-11-03 06:00 | NUR ---
REPOSITIONED BACK TO BACK. PATIENT MORE AWAKE AND ALERT NOT THAN ENTIRE SHIFT. PATIENT IS CONVERSANT AND DENIES PAIN.
[2016-11-03 06:04] LABS: BASOPHILS 0.2 % (0-2); HEMATOCRIT 30.3 % (36.0-48.0); HEMOGLOBIN 9.4 g/dL (12-16); LYMPHOCYTES 12.2 % (15-50); MCH 29.4 pg (26.0-34.0); MCV 94.7 fL (80.0-100.0); MEAN PLATELET VOLUME 9.5 fL (7.4-10.4); MONOCYTES 4.9 % (2-11); NEUTROPHILS 75.7 % (40-80); PLATELET COUNT 316 10x3/uL (130-400); RDW 15.9 % (11.5-14.5); WBC 12.3 10x3/uL (4.8-10.8)
[2016-11-03 06:30] LABS: ALBUMIN 1.8 g/dL (3.4-5.0); ALKALINE PHOSPHATASE 72 U/L (46-116); ALT (SGPT) 18 U/L (10-68); BILIRUBIN - TOTAL 0.19 mg/dL (0.2-1.3); CALC OSMOLALITY 279 mosm/kg (275-300); CALCIUM 7.3 mg/dL (8.5-10.1); CARBON DIOXIDE 23.1 mmol/L (21.0-32.0); CHLORIDE - SERUM 108 mmol/L (98-107); CREATININE - SERUM 0.7 mg/dL (0.6-1.3); GLUCOSE 102 mg/dL (74-106); POTASSIUM - SERUM 3.7 mmol/L (3.5-5.1); PROTEIN - SERUM 4.9 g/dL (6.4-8.2); SODIUM 140 mmol/L (136-145); UREA NITROGEN 15 mg/dL (7-18); eGFR NON AFRICAN AMERICAN 83 mL/min (90-120)
--- NOTE | 2016-11-03 07:40 | NUR ---
RESTING, AROUSES TO VOICE, DENIES NEEDS, BED LOWEST POSITION, CALL LIGHT IN REACH, WILL CONTINUE TO MONITOR
[2016-11-03 08:04] VITALS: BP 130/74
--- NOTE | 2016-11-03 09:05 | NUR ---
PATIENT IN LOW PRINCE POSITION RESTING WITH EYES CLOSED. RESPIRATIONS EVEN AND UNLABORED. SIDE RAILS UP X2. BED IN LOW POSITION. CALL LIGHT IN REACH.
[2016-11-03 11:33] VITALS: BP 128/70
[2016-11-03 16:20] VITALS: BP 105/59
--- NOTE | 2016-11-03 19:51 | NUR ---
ASSESSMENT COMPLETED, NO DISTRESS NOTED, NC IN PLACE, PT LETHARGIC BUT AROUSES TO VOICE, VSS, FALL PRECAUTIONS IN PLACE, SR'S UP, CL IN PLACE, WILL MONITOR
[2016-11-03 20:00] VITALS: BP 115/55
--- NOTE | 2016-11-03 21:45 | NUR ---
IV FLUIDS HUNG, UNABLE TO AROUSE PT ENOUGH TO SAFELY ADMINISTER PO MEDS, WILL ATTEMPT WHEN PT MORE ALERT, FALL PRECAUTIONS IN PLACE, CL IN REACH
--- NOTE | 2016-11-03 23:41 | NUR ---
CONTINUES TO REST WITH EYES CLOSED, NO DISTRESS NOTED, SAFETY MEASURES IN PLACE, CL IN REACH
--- NOTE | 2016-11-04 01:26 | NUR ---
PT CONTINUES TO REST WITH EYES CLOSED, AROUSES TO VOICE BUT NOT ALERT, SAFETY MEASURES IN PLACE, CL IN REACH
[2016-11-04 05:33] LABS: BASOPHILS 0.2 % (0-2); EOSINOPHILS 3.9 % (0-7); HEMOGLOBIN 9.5 g/dL (12-16); IMMATURE GRANULOCYTES 2.2 % (0-5); MCH 29.6 pg (26.0-34.0); MCHC 31.7 g/dL (31.0-37.0); MCV 93.5 fL (80.0-100.0); MEAN PLATELET VOLUME 9.7 fL (7.4-10.4); MONOCYTES 5.4 % (2-11); NEUTROPHILS 77.3 % (40-80); PLATELET COUNT 310 10x3/uL (130-400); RBC 3.21 10x6/uL (4.00-5.40); RDW 16.2 % (11.5-14.5); WBC 12.5 10x3/uL (4.8-10.8)
[2016-11-04 06:09] LABS: ALBUMIN 1.7 g/dL (3.4-5.0); ALKALINE PHOSPHATASE 72 U/L (46-116); ALT (SGPT) 18 U/L (10-68); CALC OSMOLALITY 277 mosm/kg (275-300); CALCIUM 7.6 mg/dL (8.5-10.1); CARBON DIOXIDE 23.3 mmol/L (21.0-32.0); CHLORIDE - SERUM 106 mmol/L (98-107); CREATININE - SERUM 0.6 mg/dL (0.6-1.3); GLUCOSE 102 mg/dL (74-106); POTASSIUM - SERUM 3.6 mmol/L (3.5-5.1); PROTEIN - SERUM 4.8 g/dL (6.4-8.2); SODIUM 140 mmol/L (136-145); UREA NITROGEN 10 mg/dL (7-18); eGFR NON AFRICAN AMERICAN > 90 mL/min (90-120)
--- NOTE | 2016-11-04 07:30 | NUR ---
RECIEVED PT DURING WALKING ROUNDS. PT RESTING IN BED WITH NO COMPLAINTS OF PAIN OR DISCOMFORT AT THIS TIME. PT CONFUSED. ATTEMPTED TO REORIENT, WAS UNSUCESSFUL. ASSESSMENT DONE PER FLOWSHEET. BED IN LOW POSITION AND CALL LIGHT WITHIN REACH. WILL CONTINUE TO MONITOR.
[2016-11-04 08:16] VITALS: BP 125/54
[2016-11-04 12:22] VITALS: BP 107/68
[2016-11-04 16:31] VITALS: BP 125/52
--- NOTE | 2016-11-04 19:00 | NUR ---
PATIENT ON RIGHT SIDE ON 1ST STEP OVERLAY. HOB 30 DEGREES. RR EVEN AND UNLABORED. O2 @ 2L VIA NC. 0 S/S OF DISTRESS. IV TO LEFT FA PATENT WITH NO REDNESS OR SWELLING. PHAM SECURED WITH STATLOCK AND DRAINING TO GRAVITY. TELEMETRY ON. /A ON. SRX2. BED LOW. CALL LIGHT WITHIN REACH.
[2016-11-04 20:00] VITALS: BP 119/78
--- NOTE | 2016-11-04 21:00 | NUR ---
PATIENT REPOSITIONED TO BACK. TOO LETHARGIC TO TAKE PO MEDICATION.
--- NOTE | 2016-11-04 23:00 | NUR ---
REPOSITIONED TO RIGHT SIDE.
[2016-11-05] VITALS: BP 117/63
--- NOTE | 2016-11-05 01:00 | NUR ---
REPOSITIONED TO BACK.
--- NOTE | 2016-11-05 03:00 | NUR ---
REPOSITIONED TO RIGHT SIDE.
[2016-11-05 04:00] VITALS: BP 120/59
[2016-11-05 05:44] LABS: BASOPHILS 0.5 % (0-2); EOSINOPHILS 3.6 % (0-7); HEMATOCRIT 31.1 % (36.0-48.0); HEMOGLOBIN 9.8 g/dL (12-16); IMMATURE GRANULOCYTES 1.7 % (0-5); LYMPHOCYTES 11.6 % (15-50); MCH 29.5 pg (26.0-34.0); MCHC 31.5 g/dL (31.0-37.0); MCV 93.7 fL (80.0-100.0); MEAN PLATELET VOLUME 9.5 fL (7.4-10.4); MONOCYTES 6.4 % (2-11); NEUTROPHILS 76.2 % (40-80); PLATELET COUNT 293 10x3/uL (130-400); RBC 3.32 10x6/uL (4.00-5.40); RDW 16.1 % (11.5-14.5); WBC 12.4 10x3/uL (4.8-10.8)
[2016-11-05 06:13] LABS: ALBUMIN 1.8 g/dL (3.4-5.0); ALKALINE PHOSPHATASE 80 U/L (46-116); ALT (SGPT) 15 U/L (10-68); BILIRUBIN - TOTAL 0.36 mg/dL (0.2-1.3); CALC OSMOLALITY 278 mosm/kg (275-300); CALCIUM 7.6 mg/dL (8.5-10.1); CARBON DIOXIDE 26.6 mmol/L (21.0-32.0); CHLORIDE - SERUM 107 mmol/L (98-107); CREATININE - SERUM 0.7 mg/dL (0.6-1.3); GLUCOSE 102 mg/dL (74-106); POTASSIUM - SERUM 3.2 mmol/L (3.5-5.1); PROTEIN - SERUM 5.3 g/dL (6.4-8.2); SODIUM 141 mmol/L (136-145); eGFR NON AFRICAN AMERICAN 83 mL/min (90-120)
[2016-11-05 06:17] LABS: UREA NITROGEN 7 mg/dL (7-18)
--- NOTE | 2016-11-05 07:25 | NUR ---
PATIENT IS LAYING ON HER RIGHT SIDE, RESTING QUIETLY WITH EYES CLOSED. NO SIGNS OF DISTRESS NOTED. BED IN LOWEST POSITION, CALL LIGHT IN REACH. BED RAILS UP X'S 2.
--- NOTE | 2016-11-05 07:50 | NUR ---
PT AWAKE MINIMALLY RESPONSIVE TO VERBAL STIMULI. DENIES PAIN COMPLAINS OF BEING COLD WARM BLANKET FROM WARMER PLACE ON PT. CALL LIGHT IN REACH FAMILY AT SIDE STATES THEY WISH TO PROCEED WITH PEG TUBE PLACEMENT DR IBARRA NOTIFIED ON ROUNDS.
[2016-11-05 08:44] VITALS: BP 111/72
[2016-11-05 12:24] VITALS: BP 120/75
--- NOTE | 2016-11-05 13:04 | NUR ---
NUTRITION MONITORING & EVAL CHART REVIEWED. PT VISIT. NO PO INTAKE TODAY. NOTE POSSIBLE PEG PLACEMENT. RECOMMEND 1)JEVITY 1.2@ 20 CC/HR 2)INCREASE 10 CC/HR Q 12 HOURS TOLERATED TO CURRENT GOAL RATE 50 CC/HR. 3)75 CC H2O FLUSH Q [address] FOLLOWING
--- NOTE | 2016-11-05 15:16 | NUR ---
PT IV RESITED DUE TO LEAKING LEFT HAND 20 GA X 3 STICKS.
--- NOTE | 2016-11-05 15:36 | NUR ---
PT TO GI LAB FOR PEG PLACEMENT AT THIS TIME
[2016-11-05 16:31] VITALS: BP 128/69
--- NOTE | 2016-11-05 16:45 | NUR ---
PT RETURNED TO ROOM FROM PEG PLACEMENT PEG IN PLACE OT LEFT UPPER QUAD.
--- NOTE | 2016-11-05 19:00 | NUR ---
PATIENT SLEEPING ON RIGHT SIDE. HOB 30 DEGREES. RR EVEN AND UNLABORED. 0 S/S OF DISTRESS. IV TO LEFT HAND PATENT WITH NO REDNESS OR SWELLING. PEG TUBE TO ABD WITH NO DRAINAGE. TELEMETRY ON. /A ON. SRX2. BED LOW. DOOR OPEN.
[2016-11-05 20:00] VITALS: BP 111/88
--- NOTE | 2016-11-05 23:05 | NUR ---
REPOSITIONED PATIENT TO BACK. MEDS GIVEN VIA PEG TUBE. TYLENOL GIVEN FOR PAIN OF A "5/10." WILL REASSESS.
[2016-11-06] VITALS: BP 96/57
--- NOTE | 2016-11-06 02:00 | NUR ---
PATIENT DENIES PAIN AT THIS TIME. REPOSITIONED TO LEFT SIDE.
[2016-11-06 04:00] VITALS: BP 126/64
--- NOTE | 2016-11-06 04:00 | NUR ---
PATIENT SLEEPING WITH NO DISTRESS NOTED. REPOSITIONED TO LEFT.
[2016-11-06 05:28] LABS: BASOPHILS 0.2 % (0-2); EOSINOPHILS 0.4 % (0-7); HEMATOCRIT 30.8 % (36.0-48.0); HEMOGLOBIN 9.7 g/dL (12-16); IMMATURE GRANULOCYTES 0.7 % (0-5); LYMPHOCYTES 9.1 % (15-50); MCHC 31.5 g/dL (31.0-37.0); MCV 92.2 fL (80.0-100.0); MEAN PLATELET VOLUME 9.6 fL (7.4-10.4); NEUTROPHILS 85.6 % (40-80); PLATELET COUNT 305 10x3/uL (130-400); RBC 3.34 10x6/uL (4.00-5.40); RDW 16.4 % (11.5-14.5); WBC 14.8 10x3/uL (4.8-10.8)
[2016-11-06 05:50] LABS: ALBUMIN 1.7 g/dL (3.4-5.0); ANION GAP 9.4 mmol/L (8-16); BILIRUBIN - TOTAL 0.43 mg/dL (0.2-1.3); CALCIUM 7.4 mg/dL (8.5-10.1); CARBON DIOXIDE 26.1 mmol/L (21.0-32.0); CREATININE - SERUM 0.8 mg/dL (0.6-1.3); POTASSIUM - SERUM 3.5 mmol/L (3.5-5.1); PROTEIN - SERUM 5.1 g/dL (6.4-8.2)
--- NOTE | 2016-11-06 07:45 | NUR ---
PATIENT'S DAUGHTER IN ROOM, BUT SHE IS GOING TO LEAVE SHE HAS TO GO TO WORK. PATIENT IS PLEASANT, SHE DID HAVE A BM AND THIS NURSE AND MAC FINAL ASSEMBLER CLEANED HER UP. PATIENT SITTING UP FOR BREAKFAST.
--- NOTE | 2016-11-06 08:30 | NUR ---
PATIENT DID NOT WANT TO EAT MUCH, 25%.
[2016-11-06 09:04] VITALS: BP 117/65
[2016-11-06 11:40] VITALS: BP 122/83
--- NOTE | 2016-11-06 12:15 | NUR ---
CHECKED PATIENT'S PEG TUBE PLACEMENT, PROVIDED PATIENT MEDS THROUGH TUBE. FLUSHED WITH 20 ML H2O.
--- NOTE | 2016-11-06 13:17 | NUR ---
Rehab Note- Acute Rehab Prescreen order received. The patient has been on our rehab unit recently and has been at [facility]. Sp[facility] with BRETT Almodovar [facility]. Thank you for this referral! Neeru Eisenberg RN Clinical Liaison, [facility] Rehab/[place]
--- NOTE | 2016-11-06 14:10 | NUR ---
Nutrition Follow Up: Chart reviewed. Pt is POD 1 PEG placement. Orders in to start Jevity 1.2 @ 20 ml/hr when ok with General Surgery. Goal rate is 50 ml/hr which will provide 1440 kcal and 66 g protein. 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 Rec d/c Megace. RD will continue to monitor pt progress.
--- NOTE | 2016-11-06 15:00 | NUR ---
PATIENT IS REPOSITIONED, SHE IS CONFUSED AND KEEPS ASKING FOR STAFF TO TAKE HER SHOES OFF, BUT SHE DOES NOT HAVE ANY SHOES ON. PATIENT'S SPOUSE HERE AT THIS TIME.
[2016-11-06 15:52] VITALS: BP 128/65
--- NOTE | 2016-11-06 16:16 | NUR ---
CM REASSESSMENT NOTE: CM CALLED PATIENTS DAUGHTER AND LEFT MESSAGE TO CALL CM REGARDING NURSING AND REHAB.
--- NOTE | 2016-11-06 16:50 | NUR ---
PATIENT'S SPOUSE JUST LEFT. PATIENT IS CALM, SHE DOES KEEP LEANING TO HER RIGHT IN BED, REPOSTIONED.
--- NOTE | 2016-11-06 17:00 | NUR ---
JEVITY STARTED NOW.
--- NOTE | 2016-11-06 18:20 | NUR ---
REPOSITIONED SHE IS SITTING UP GETTING HER JEVITY.
[2016-11-06 20:00] VITALS: BP 104/68
[2016-11-07] VITALS: BP 117/61
--- NOTE | 2016-11-07 00:52 | NUR ---
ASSESSED AT THE BEGINNING OF THE SHIFT. PT IS ALERT AND CONFUSED, BUT WILL TALK WITH NURSING WHILE IN THE ROOM. SHE HAS JEVITY INFUSING AT 20CC'S AN HR. AND A PHAM CATH FOR VOIDING. WE ARE KEEPING THE HOB UP AT 30 DEGREES. BOTH LOWER LEGS ARE EDEMATOUS AND SOME WEEPING NOTED. THERE IS MEPERLIX TO HER COCCYX AND TELEMATRY SHOWING SR. ALL MEDS HAVE BEEN GIVEN DOWN HER G-TUBE AND BEFORE MIDNIGHT SHE WAS MOANING AND RECEIVED TYLENOL ORDERED FOR PAIN. WE ARE ASSKING HER WITH TURNING AND REPOSITIONING FOR SKIN CARE. THE BED IS LOW, RAILS UP X'S 2 WITH THE CALL LIGHT AT HAND.
[2016-11-07 04:00] VITALS: BP 120/64
[2016-11-07 06:06] LABS: BASOPHILS 0.2 % (0-2); EOSINOPHILS 0.5 % (0-7); HEMATOCRIT 32.1 % (36.0-48.0); IMMATURE GRANULOCYTES 0.5 % (0-5); LYMPHOCYTES 13.2 % (15-50); MCHC 31.2 g/dL (31.0-37.0); MEAN PLATELET VOLUME 10.1 fL (7.4-10.4); MONOCYTES 5.5 % (2-11); NEUTROPHILS 80.1 % (40-80); PLATELET COUNT 333 10x3/uL (130-400); RBC 3.45 10x6/uL (4.00-5.40); RDW 16.4 % (11.5-14.5); WBC 15.2 10x3/uL (4.8-10.8)
[2016-11-07 06:25] LABS: ALBUMIN 1.9 g/dL (3.4-5.0); ANION GAP 11.1 mmol/L (8-16); BILIRUBIN - TOTAL 0.29 mg/dL (0.2-1.3); CALCIUM 7.5 mg/dL (8.5-10.1); CARBON DIOXIDE 23.3 mmol/L (21.0-32.0); CREATININE - SERUM 0.9 mg/dL (0.6-1.3); PROTEIN - SERUM 5.7 g/dL (6.4-8.2)
[2016-11-07 06:26] LABS: POTASSIUM - SERUM 4.4 mmol/L (3.5-5.1)
--- NOTE | 2016-11-07 07:10 | NUR ---
PATIENT RECEIVED IN RIGHT LATERAL POSITION RESTING WITH EYES CLOSED. RESPIRATIONS EVEN AND UNLABORED. SIDE RAILS UP X2. BED IN LOW POSITION. CALL LIGHT IN REACH.
[2016-11-07 07:32] VITALS: BP 108/71
--- NOTE | 2016-11-07 09:37 | NUR ---
PATIENT REPOSITONED IN BED. WELL TOLERATED. SCHEDULED MEDICATION ADMINISTERED. SIDE RAILS UP X2. BED IN LOW POSITION. CALL LIGHT IN REACH.
[2016-11-07 11:20] VITALS: BP 118/63
--- NOTE | 2016-11-07 11:50 | NUR ---
PATIENT IN RIGHT LATERAL POSITION RESTING QUIETLY. NO SIGNS OF DISTRESS NOTED. SIDE RAILS UP X2. BED IN LOW POSITION. CALL LIGHT IN REACH.
--- NOTE | 2016-11-07 13:50 | NUR ---
PATIENT RESTING QUIETLY WITH EYES CLOSED. RESPIRATIONS EVEN AND UNLABORED. FAMILY AT BEDSIDE. SIDE RAILS UP X2. BED IN LOW POSITION. CALL LIGHT IN REACH.
[2016-11-07 15:26] VITALS: BP 133/70
--- NOTE | 2016-11-07 16:30 | NUR ---
PATIENT IN BED RESTING WITH EYES CLOSED. RESPIRATIONS EVEN AND UNLABORED. AT BEDSIDE. SIDE RAILS UP X2. BED IN LOW POSITION. CALL LIGHT IN REACH.
--- NOTE | 2016-11-07 18:00 | NUR ---
PATIENT RESTING QUIETLY WITH EYES CLOSED. RESPIRATIONS EVEN AND UNLABORED. SIDE RAILS UP X2. BED IN LOW POSITION. CALL LIGHT IN REACH.
[2016-11-07 20:00] VITALS: BP 149/78
[2016-11-08] VITALS: BP 121/62
[2016-11-08 04:00] VITALS: BP 81/63
--- NOTE | 2016-11-08 05:20 | NUR ---
PT WAS ASSESSED AT THE BEGINNING OF THE SHIFT. SHE IS WAS LETHARGIC AND OPENED HER EYES BUT DID NOT TRY TO TALK. WE HAVE TURNED HER AND EVEN GIVEN HER A BATH DURING THE NIGHT. SHE HAD HER TUBE FEEDING INFUSING AND AND FTHE HOB ELEVATED 30 DEGREES. HER RESPIRATIONS HAD BECOME MORE RAPID AND SHE WAS BREATHING SHALLOW. ALL EXTREMITIES WERE WEEPING WITH EDEMA. PLEXIX PULSES HAVE BEEN IN PLACE AND SHE HAD TELEMETRY AND A PHAM CATH. AT ABOUT 0300 HERE BREATHING WAS MORE RAPID AND SHE WAS UNRESPONSIVE. WE HAD TURNED UP HER O2 TO 6 LITERS PER N/C AND JUST AFTER THAT THE ASSISTANT FACILITY MANAGER CALLED WITH A FLAT LINE RHYTHM. WHEN PT WAS CHECKED SHE HAD STOPPED BREATHING. MD WAS NOTIFIED AND SHE CAME TO [facility]. THE FAMILY WAS CALLED AND MERCEDEZ THE DAUGHTER WAS TOLD AND ALSO GAVE PREMISSION TO LET HER GO TO THE HOME. SHE WAS ADVISED THAT THERE WAS A RING ON HER MOM'S HAND THAT WE COULD NOT GET OFF DUE TO SWELLING. IT WILL BE SENT WITH THE HOME AND THE DAUGHTER KNOWS THIS. FAMILY WAS CALLED AT 0400, THE HOME CALLED AT 0500 AND THE MD PRONOUNCED AT AT 0430.
== END 2016-11-08 04:30 | DRG 689 ==
LOC: D.ER 09:54 → D.MS 12:20
PROVIDERS: Emergency Medicine; Surgery; ADMIT Family Medicine Adult Medicine
PROC: 0DH63UZ Insertion of Feeding Device into Stomach, Percutaneous Approach (ICD-10-PCS; principal; 2016-11-05 13:30)
DX: N39.0 Urinary tract infection, site not specified (principal); R53.2 Functional quadriplegia; E43 Unspecified severe protein-calorie malnutrition; E87.0 Hyperosmolality and hypernatremia; Z68.1 Body mass index [BMI] 19.9 or less, adult; R13.10 Dysphagia, unspecified; E86.0 Dehydration; Z66 Do not resuscitate; I10 Essential (primary) hypertension; I25.10 Atherosclerotic heart disease of native coronary artery without angina pectoris; G62.9 Polyneuropathy, unspecified; R79.89 Other specified abnormal findings of blood chemistry; I25.2 Old myocardial infarction; R41.0 Disorientation, unspecified; D64.9 Anemia, unspecified; Z86.73 Personal history of transient ischemic attack (TIA), and cerebral infarction without residual deficits; Z95.1 Presence of aortocoronary bypass graft